=== PATIENT | male | born 1975 | race African-American/Black ===

== ENCOUNTER 2021-05-21 23:26 | Emergency (ER) | payer MEDICARE, SELFPAY ==
[2021-05-21 23:36] VITALS: BP 141/91; PULSE 90; RESP 15; TEMP 36.9; O2SAT 97; BMI 27.5
[2021-05-21 23:57] LABS: UR Morphine/Opiate cutoff 300 Negative (Negative); Ur Creatinine Normal (Normal); Ur Specific Gravity Normal (Normal); Urine Amphetamines Negative (Negative); Urine Barbiturates Negative (Negative); Urine Benzodiazepines Positive (Negative); Urine Cocaine Negative (Negative); Urine MDMA Negative (Negative); Urine Methadone Negative (Negative); Urine Methamphetamines Negative (Negative); Urine Oxycodone Negative (Negative); Urine Phencyclidine Negative (Negative); Urine Tetrahydrocannabinol Negative (Negative); Urine Tricyclic Antidepressant Negative (Negative); Urine pH Normal (Normal)
[2021-05-22 00:11] LABS: COVID19 -Nasal RAPID Negative (Negative)
[2021-05-22 00:19] LABS: Add Manual Diff / Slide Review NO; Basophils Absolute Auto 0 /uL (0-100); Basophils Percent Auto 0.5 % (0-2); Eosinophils Absolute Auto 100 /uL (0-450); Eosinophils Percent Auto 1.1 % (2-4); Hematocrit 36.4 % (41-53); Hemoglobin 11.9 g/dL (13.5-17.5); Lymphocytes Absolute Auto 1500 /uL (1100-4500); Lymphocytes Percent Auto 27.7 % (25-40); Mean Corpuscular HGB Conc 32.7 % (30-36); Mean Corpuscular Volume 73.4 fL (80-100); Monocytes Absolute Auto 500 /uL (0-900); Monocytes Percent Auto 9.8 % (3-14); Neutrophils Absolute Auto 3200 /uL (1500-7000); Neutrophils Percent Auto 60.9 % (50-75); Platelet Count 308 X10^3/uL (150-400); Red Blood Cell Count 4.96 X10^6/uL (4.5-5.9); Red Cell Distribution Width 15.5 % (11.6-14.8); White Blood Cell Count 5.2 X10^3/uL (4.5-11.0)
[2021-05-22 00:20] LABS: Acetaminophen < 10 ug/mL (10-30); Alanine Aminotransferase 46 IU/L (<50); Albumin 4.5 g/dL (3.5-5.0); Albumin Globulin Ratio 1.3 (1.0-2.8); Alkaline Phosphatase 53 U/L (38-126); Aspartate Aminotransferase 53 IU/L (17-59); BUN Creatinine Ratio 18.5 (6-22); Bilirubin Total 1.3 mg/dL (0.2-1.3); Blood Urea Nitrogen 17 mg/dL (9-20); Calcium 8.7 mg/dL (8.4-10.2); Carbon Dioxide 24 mmol/L (22-32); Chloride 104 mmol/L (98-107); Estimated Glomerular Filt Rate > 60.0 mL/min (>60); Ethanol (ETOH) < 10 mg/dL; Globulin 3.5 g/dL (1.7-4.1); Glucose 145 mg/dL (70-100); HEMOLYSIS < 15 (0-50); Potassium 3.6 mmol/L (3.4-5.1); Salicylate < 1.0 mg/dL (<20); Sodium 137 mmol/L (137-145)
--- NOTE | 2021-05-22 00:32 | PC.NURSE ---
Pt bike and trailer locked up in bushes in ambulance bay. Personal Machete in pt belongings cabinet
--- NOTE | 2021-05-22 00:39 | PC.NURSE ---
Pt brought his bike and burley to the [facility]. Had a conversation with security and the [facility] Zain and the pt would like to keep the bike and anna outside of the EMS bay and requested to have his name labeled on it.
--- NOTE | 2021-05-22 01:06 | ED.ALCOHOL ---
HPI - Alcohol <Yuri Hankins MD - Last Filed: 06/04/21 07:07> General Chief Complaint: Toxicology Problem Stated Complaint: Detox help needed Time Seen by Provider: 05/22/21 00:16 Source: patient Mode of arrival: Ambulatory History of Present Illness HPI narrative: The patient is homeless, he says he is an alcoholic. His last drink was allow 11:00 p.m.. He normally consumes 6-12 beers daily. He arrives on bicycle. He requests detox. He is alert,calm,and cooperative. He has no headache, visual changes, chest pain or dyspnea. He denies nausea vomiting. He has no significant tremor. He has no history of seizures. He has a relationship with [facility] [email or web address] He indicates he is supposed to be on psychiatric medications. He describes a history of schizophrenia and bipolar disorder. Medical records obtained here indicate his schizoaffective disorder, bipolar type. No current loosen a shins or delusions. He has no intent of self-harm. Despite his contention of his last alcohol drink recently,prior to arrival, his alcohol level 0. Records were obtained from [facility]. ER records from last year indicate a history of PTSD, bipolar 1 disorder, depression, alcohol abuse, and schizoaffective disorder, bipolar type. He had suicidal ideation at that time. Related Data Home Medications Medication Instructions Recorded Confirmed hydroxyzine HCl 50 mg tablet 50 mg PO Q8HP PRN #0 02/28/16 lisinopril 20 mg tablet 20 mg PO QDAY #0 02/28/16 perphenazine 8 mg tablet 8 mg PO #0 02/28/16 trazodone 150 mg tablet 150 mg PO QDAY #0 02/28/16 Previous Rx's Medication Instructions Recorded olanzapine 10 mg tablet (Zyprexa) 10 mg PO DAILY #30 tab 05/27/21 Allergies Allergy/AdvReac Type Severity Reaction Status Date / Time No Known Drug Allergies Allergy Verified 05/24/21 17:55 Review of Systems <Yuri Hankins MD - Last Filed: 06/04/21 07:07> Constitutional Constitutional: Reports as per HPI, Denies body ache(s), Denies chills, Denies fever(s) and Denies headache(s) Eyes Eyes: Denies change in vision ENT Ears, Nose, Mouth, and Throat: Denies dizziness, Denies headache(s), Denies sinus pain and Denies sore throat Cardiovascular Cardiovascular: Denies chest pain, Denies syncope and Denies dyspnea Respiratory Respiratory: Denies cough and Denies dyspnea Gastrointestinal Gastrointestinal: Denies abdominal pain and Denies nausea Musculoskeletal Musculoskeletal: Denies arthralgias, Denies muscle weakness and Denies numbness Integumentary/Breasts Skin/Breast: Denies rash Neurologic Neurologic: Denies confusion, Denies dizziness, Denies syncope, Denies headache(s) and Denies numbness Psychiatric Psychiatric: Denies confusion, Denies depression, Denies homicidal ideation and Denies suicidal ideation Patient History <Yuri Hankins MD - Last Filed: 06/04/21 07:07> Medical History Alcohol abuse PTSD (post-traumatic stress disorder) Schizoaffective disorder, bipolar type Social History Smoking Status: Current every day smoker Smoking Status: Current every day smoker alcohol intake frequency: 3 or more drinks per day Alcohol type: beer and hard liquor Substance Use Type: marijuana Exam <Yuri Hankins MD - Last Filed: 06/04/21 07:07> Initial Vital Signs Initial Vital Signs: Vital Signs Temperature 98.5 F 05/21/21 23:36 Pulse Rate 90 05/21/21 23:36 Respiratory Rate 15 05/21/21 23:36 Blood Pressure 141/91 H 05/21/21 23:36 Pulse Oximetry 97 05/21/21 23:36 Const General: cooperative, healthy appearing and comfortable Other: Poor historian. [facility] Head: normocephalic and atraumatic Mouth: oral mucosae normal Throat: posterior oropharynx normal Eyes Conjunctivae: conjunctivae normal Sclera: sclerae normal Pupils: PERRL EOM: EOM intact bilaterally Neck Neck: normal visual inspection and full ROM Resp Auscultation: clear to auscultation bilaterally Cardio Rate: regular rate Rhythm: regular rhythm Heart Sounds: S1 normal, S2 normal, no click and no murmurs GI Palpation: soft and No tender Back/Spine/Pelvis Back: No back tenderness Skin General: no rashes or lesions noted Neuro General: patient alert, patient awake, oriented (Person and place) and no focal motor deficits Cranial Nerves: CN's II-XI intact bilaterally Extrem General: normal to inspection, full ROM and no calf tenderness Psych Speech and Movement: delayed speech and restless Mood: dysthymic mood Affect: animated Attitude: cooperative, not belligerent and not guarded Thought Process: confabulating Thought Content: no delusions and no homicidality <Opal Desai DO - Last Filed: 05/22/21 16:31> Initial Vital Signs Initial Vital Signs: Vital Signs Temperature 98.5 F 05/21/21 23:36 Pulse Rate 90 05/21/21 23:36 Respiratory Rate 15 05/21/21 23:36 Blood Pressure 141/91 H 05/21/21 23:36 Pulse Oximetry 97 05/21/21 23:36 Course <Yuri Hankins MD - Last Filed: 06/04/21 07:07> Course Course Narrative: The patient is not intoxicated despite him reporting he was drinking just prior to arrival here. He has schizoaffective disorder, currently off medications. He is boarded in the ER, awaiting RIVET PASSER arrival for mental health assessment later today. Care will be transitioned to Dr. Desai at change of shift, awaiting mental health evaluation. The patient indicates he is desirable of reestablishing mental health care. He presented asking for alcohol detox, I believe a more comprehensive approach at mental health care is the more appropriate goal. He has been off medications for months. He is medically cleared for RIVET PASSER evaluation/disposition. Orders Ordered: ED Orders 05/21/21 23:50 COVID19 -Nasal swab/Pre-Proc Stat Urine Drug Screen, Rapid Stat 05/21/21 23:59 Acetaminophen Stat Complete Blood Count AUTO DIFF Stat Comprehensive Metabolic Panel Stat Ethanol (ETOH) Stat Free T4, Direct Thyroxine Stat Salicylate Stat Thyroid Stimulating Hormone Stat Vital Signs Vital signs: Vital Signs - 8 hr 05/22/21 06:46 05/22/21 06:47 05/22/21 08:10 Temperature 98 F Pulse Rate 68 64 74 Respiratory Rate 18 Blood Pressure 142/87 H 152/93 H Pulse Oximetry 100 98 99 <Opal Desai DO - Last Filed: 05/22/21 16:31> Orders Ordered: ED Orders 05/21/21 23:50 COVID19 -Nasal swab/Pre-Proc Stat Urine Drug Screen, Rapid Stat 05/21/21 23:59 Acetaminophen Stat Complete Blood Count AUTO DIFF Stat Comprehensive Metabolic Panel Stat Ethanol (ETOH) Stat Free T4, Direct Thyroxine Stat Salicylate Stat Thyroid Stimulating Hormone Stat Vital Signs Vital signs: Vital Signs - 8 hr 05/22/21 06:46 05/22/21 06:47 05/22/21 08:10 Temperature 98 F Pulse Rate 68 64 74 Respiratory Rate 18 Blood Pressure 142/87 H 152/93 H Pulse Oximetry 100 98 99 MDM - Alcohol <Yuri Hankins MD - Last Filed: 06/04/21 07:07> Lab Data Result diagrams: 05/21/21 23:59 05/21/21 23:59 Labs: Lab Results 05/21/21 05/21/21 05/21/21 Range/Units 23:50 23:50 23:59 WBC 5.2 (4.5-11.0) X10^3/uL RBC 4.96 (4.5-5.9) X10^6/uL Hgb 11.9 L (13.5-17.5) g/dL Hct 36.4 L (41-53) % MCV 73.4 L (80-100) fL MCH 24.0 L (26-34) PG MCHC 32.7 (30-36) % RDW 15.5 H (11.6-14.8) % Plt Count 308 (150-400) X10^3/uL Neut % (Auto) 60.9 (50-75) % Lymph % (Auto) 27.7 (25-40) % Mcclain % (Auto) 9.8 (3-14) % Eos % (Auto) 1.1 L (2-4) % Baso % (Auto) 0.5 (0-2) % Neut # (Auto) 3200 (6852-3405) /uL Lymph # (Auto) 1500 (7717-3726) /uL Mcclain # (Auto) 500 (0-900) /uL Eos # (Auto) 100 (0-450) /uL Baso # (Auto) 0 (0-100) /uL Sodium (137-145) mmol/L Potassium (3.4-5.1) mmol/L Chloride (98-107) mmol/L Carbon Dioxide (22-32) mmol/L BUN (9-20) mg/dL Creatinine (0.66-1.25) mg/dL Estimated GFR (>60) mL/min BUN/Creatinine Ratio (6-22) Glucose (70-100) mg/dL Calcium (8.4-10.2) mg/dL Total Bilirubin (0.2-1.3) mg/dL AST (17-59) IU/L ALT (<50) IU/L Alkaline Phosphatase (38-126) U/L Total Protein (6.3-8.2) g/dL Albumin (3.5-5.0) g/dL Globulin (1.7-4.1) g/dL Albumin/Globulin Ratio (1.0-2.8) TSH (0.47-4.68) uIU/mL Free T4 (0.78-2.19) ng/dL Salicylates (<20) mg/dL U Opiates 300ng/mL cut Negative (Negative) Ur Oxycodone Screen Negative (Negative) Urine Methadone Screen Negative (Negative) Acetaminophen (10-30) ug/mL Ur Barbiturates Screen Negative (Negative) U Tricyclic Antidepress Negative (Negative) Ur Phencyclidine Scrn Negative (Negative) Ur Amphetamines Screen Negative (Negative) U Methamphetamines Scrn Negative (Negative) Ur MDMA Scrn (Ecstasy) Negative (Negative) U Benzodiazepines Scrn Positive H (Negative) Urine Cocaine Screen Negative (Negative) U Marijuana (THC) Screen Negative (Negative) Ethyl Alcohol ( - 10) mg/dL SARS-CoV-2 (PCR) Negative (Negative) 05/21/21 05/21/21 Range/Units 23:59 23:59 WBC (4.5-11.0) X10^3/uL RBC (4.5-5.9) X10^6/uL Hgb (13.5-17.5) g/dL Hct (41-53) % MCV (80-100) fL MCH (26-34) PG MCHC (30-36) % RDW (11.6-14.8) % Plt Count (150-400) X10^3/uL Neut % (Auto) (50-75) % Lymph % (Auto) (25-40) % Mcclain % (Auto) (3-14) % Eos % (Auto) (2-4) % Baso % (Auto) (0-2) % Neut # (Auto) (5538-8483) /uL Lymph # (Auto) (9472-3373) /uL Mcclain # (Auto) (0-900) /uL Eos # (Auto) (0-450) /uL Baso # (Auto) (0-100) /uL Sodium 137 (137-145) mmol/L Potassium 3.6 (3.4-5.1) mmol/L Chloride 104 (98-107) mmol/L Carbon Dioxide 24 (22-32) mmol/L BUN 17 (9-20) mg/dL Creatinine 0.92 (0.66-1.25) mg/dL Estimated GFR > 60.0 (>60) mL/min BUN/Creatinine Ratio 18.5 (6-22) Glucose 145 H (70-100) mg/dL Calcium 8.7 (8.4-10.2) mg/dL Total Bilirubin 1.3 (0.2-1.3) mg/dL AST 53 (17-59) IU/L ALT 46 (<50) IU/L Alkaline Phosphatase 53 (38-126) U/L Total Protein 8.0 (6.3-8.2) g/dL Albumin 4.5 (3.5-5.0) g/dL Globulin 3.5 (1.7-4.1) g/dL Albumin/Globulin Ratio 1.3 (1.0-2.8) TSH 1.66 (0.47-4.68) uIU/mL Free T4 0.79 (0.78-2.19) ng/dL Salicylates < 1.0 (<20) mg/dL U Opiates 300ng/mL cut (Negative) Ur Oxycodone Screen (Negative) Urine Methadone Screen (Negative) Acetaminophen < 10 (10-30) ug/mL Ur Barbiturates Screen (Negative) U Tricyclic Antidepress (Negative) Ur Phencyclidine Scrn (Negative) Ur Amphetamines Screen (Negative) U Methamphetamines Scrn (Negative) Ur MDMA Scrn (Ecstasy) (Negative) U Benzodiazepines Scrn (Negative) Urine Cocaine Screen (Negative) U Marijuana (THC) Screen (Negative) Ethyl Alcohol < 10 ( - 10) mg/dL SARS-CoV-2 (PCR) (Negative) Urine Dip Bedside Urine Glucose Negative Bedside Urine Bilirubin - Negative Bedside Urine Ketone - Negative Urine Specific Bushnell 1.020 Bedside Urine Occult Blood - Negative Bedside Urine pH 6 Bedside Urine Protein - Negative Bedside Urine Urobilinogen - Negative Bedside Urine Nitrite - Negative Bedside Urine Leukocytes - Negative Esterase <Opal Giselle, DO - Last Filed: 05/22/21 16:31> Lab Data Labs: Lab Results 05/21/21 05/21/21 05/21/21 Range/Units 23:50 23:50 23:59 WBC 5.2 (4.5-11.0) X10^3/uL RBC 4.96 (4.5-5.9) X10^6/uL Hgb 11.9 L (13.5-17.5) g/dL Hct 36.4 L (41-53) % MCV 73.4 L (80-100) fL MCH 24.0 L (26-34) PG MCHC 32.7 (30-36) % RDW 15.5 H (11.6-14.8) % Plt Count 308 (150-400) X10^3/uL Neut % (Auto) 60.9 (50-75) % Lymph % (Auto) 27.7 (25-40) % Mcclain % (Auto) 9.8 (3-14) % Eos % (Auto) 1.1 L (2-4) % Baso % (Auto) 0.5 (0-2) % Neut # (Auto) 3200 (4624-1579) /uL Lymph # (Auto) 1500 (9118-1463) /uL Mcclain # (Auto) 500 (0-900) /uL Eos # (Auto) 100 (0-450) /uL Baso # (Auto) 0 (0-100) /uL Sodium (137-145) mmol/L Potassium (3.4-5.1) mmol/L Chloride (98-107) mmol/L Carbon Dioxide (22-32) mmol/L BUN (9-20) mg/dL Creatinine (0.66-1.25) mg/dL Estimated GFR (>60) mL/min BUN/Creatinine Ratio (6-22) Glucose (70-100) mg/dL Calcium (8.4-10.2) mg/dL Total Bilirubin (0.2-1.3) mg/dL AST (17-59) IU/L ALT (<50) IU/L Alkaline Phosphatase (38-126) U/L Total Protein (6.3-8.2) g/dL Albumin (3.5-5.0) g/dL Globulin (1.7-4.1) g/dL Albumin/Globulin Ratio (1.0-2.8) TSH (0.47-4.68) uIU/mL Free T4 (0.78-2.19) ng/dL Salicylates (<20) mg/dL U Opiates 300ng/mL cut Negative (Negative) Ur Oxycodone Screen Negative (Negative) Urine Methadone Screen Negative (Negative) Acetaminophen (10-30) ug/mL Ur Barbiturates Screen Negative (Negative) U Tricyclic Antidepress Negative (Negative) Ur Phencyclidine Scrn Negative (Negative) Ur Amphetamines Screen Negative (Negative) U Methamphetamines Scrn Negative (Negative) Ur MDMA Scrn (Ecstasy) Negative (Negative) U Benzodiazepines Scrn Positive H (Negative) Urine Cocaine Screen Negative (Negative) U Marijuana (THC) Screen Negative (Negative) Ethyl Alcohol ( - 10) mg/dL SARS-CoV-2 (PCR) Negative (Negative) 05/21/21 05/21/21 Range/Units 23:59 23:59 WBC (4.5-11.0) X10^3/uL RBC (4.5-5.9) X10^6/uL Hgb (13.5-17.5) g/dL Hct (41-53) % MCV (80-100) fL MCH (26-34) PG MCHC (30-36) % RDW (11.6-14.8) % Plt Count (150-400) X10^3/uL Neut % (Auto) (50-75) % Lymph % (Auto) (25-40) % Mcclain % (Auto) (3-14) % Eos % (Auto) (2-4) % Baso % (Auto) (0-2) % Neut # (Auto) (8778-8252) /uL Lymph # (Auto) (2157-5805) /uL Mcclain # (Auto) (0-900) /uL Eos # (Auto) (0-450) /uL Baso # (Auto) (0-100) /uL Sodium 137 (137-145) mmol/L Potassium 3.6 (3.4-5.1) mmol/L Chloride 104 (98-107) mmol/L Carbon Dioxide 24 (22-32) mmol/L BUN 17 (9-20) mg/dL Creatinine 0.92 (0.66-1.25) mg/dL Estimated GFR > 60.0 (>60) mL/min BUN/Creatinine Ratio 18.5 (6-22) Glucose 145 H (70-100) mg/dL Calcium 8.7 (8.4-10.2) mg/dL Total Bilirubin 1.3 (0.2-1.3) mg/dL AST 53 (17-59) IU/L ALT 46 (<50) IU/L Alkaline Phosphatase 53 (38-126) U/L Total Protein 8.0 (6.3-8.2) g/dL Albumin 4.5 (3.5-5.0) g/dL Globulin 3.5 (1.7-4.1) g/dL Albumin/Globulin Ratio 1.3 (1.0-2.8) TSH 1.66 (0.47-4.68) uIU/mL Free T4 0.79 (0.78-2.19) ng/dL Salicylates < 1.0 (<20) mg/dL U Opiates 300ng/mL cut (Negative) Ur Oxycodone Screen (Negative) Urine Methadone Screen (Negative) Acetaminophen < 10 (10-30) ug/mL Ur Barbiturates Screen (Negative) U Tricyclic Antidepress (Negative) Ur Phencyclidine Scrn (Negative) Ur Amphetamines Screen (Negative) U Methamphetamines Scrn (Negative) Ur MDMA Scrn (Ecstasy) (Negative) U Benzodiazepines Scrn (Negative) Urine Cocaine Screen (Negative) U Marijuana (THC) Screen (Negative) Ethyl Alcohol < 10 ( - 10) mg/dL SARS-CoV-2 (PCR) (Negative) Urine Dip Bedside Urine Glucose Negative Bedside Urine Bilirubin - Negative Bedside Urine Ketone - Negative Urine Specific Bushnell 1.020 Bedside Urine Occult Blood - Negative Bedside Urine pH 6 Bedside Urine Protein - Negative Bedside Urine Urobilinogen - Negative Bedside Urine Nitrite - Negative Bedside Urine Leukocytes - Negative Esterase MDM Narrative Medical decision making narrative: Patient signed out to me by Dr. Hankins. I had seen evaluated patient myself. Awake alert oriented. States he does have a history of schizoaffective disorder bipolar, PTSD and alcoholism. He says his legal trouble seem to be behind him he now needs to work on his alcohol use and wants detox and treatment. He has been off and on the streets for most of his life. He has had thoughts of suicide in the past. He does not have any now he is not sure if he is going to have any later today. He contracts for safety. He does talk quite a bit about meth addicts on the streets after him. He says they been at present for number of years. Discharge Plan Departure Patient Disposition: Home Clinical Impression: Schizoaffective disorder, bipolar type, Alcohol abuse Instructions: DI for Alcohol Use Disorder Activity Restrictions/Additional Instructions: *You have been diagnosed with alcohol abuse *What to do: We tried to find detox for you however there fortunately all full. Please use the piece of paper and call them daily to see when a bed is available. Do not stop drinking alcohol in till you arrive in detox. Alcohol withdraw can be very dangerous while unmonitored. Please see list for places of detox You are welcome to return to anytime to the emergency department If you are feeling suicidal or having suicidal thoughts: Call: Suicide Hotline: Visit: www.[employer].org Text: 649403 *Continue to take medications as directed *Follow up with your primary care provider in 2-3 days or call [phone] *Return to ER if you should have withdraw, thoughts of harming self, or any new, worsening or concerning symptoms Prescriptions: No Action lisinopril 20 MG tablet 20 mg PO QDAY Qty: 0 0RF trazodone 150 MG tablet 150 mg PO QDAY Qty: 0 0RF perphenazine 8 MG tablet 8 mg PO Qty: 0 0RF hydroxyzine HCl 50 MG tablet 50 mg PO Q8HP PRNQty: 0 0RF olanzapine [Zyprexa] 10 mg tablet 10 mg PO DAILY Qty: 30 0RF
[2021-05-22 01:15] LABS: Free T4, Direct Thyroxine 0.79 ng/dL (0.78-2.19)
[2021-05-22 01:29] LABS: Thyroid Stimulating Hormone 1.66 uIU/mL (0.47-4.68)
[2021-05-22 06:46] VITALS: PULSE 68; O2SAT 100
[2021-05-22 06:47] VITALS: BP 142/87; PULSE 64; O2SAT 98
[2021-05-22 08:10] VITALS: BP 152/93; PULSE 74; RESP 18; TEMP 36.6; O2SAT 99
== END 2021-05-22 10:24 | disposition home or self-care (01) ==
PROVIDERS: Emergency Medicine; Emergency Provider Emergency Medicine
DX: F25.0 Schizoaffective disorder, bipolar type (principal); F10.20 Alcohol dependence, uncomplicated; Z59.00 Homelessness unspecified; F17.200 Nicotine dependence, unspecified, uncomplicated; Z20.822 Contact with and (suspected) exposure to COVID-19; Y90.0 Blood alcohol level of less than 20 mg/100 ml
CPT/HCPCS: 80053; 80305; 80320; 80329; 81003; 84439; 84443; 85025; 87635; 99282; 99283; C9803; G0480

== ENCOUNTER 2021-05-22 21:45 | Emergency (ER) | payer SELFPAY ==
[2021-05-22 21:55] VITALS: BP 123/82; PULSE 75; RESP 16; TEMP 36.9; O2SAT 100; BMI 24.4
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
--- NOTE | 2021-05-22 22:46 | PC.NURSE ---
Patient no longer in lobby. Seen exiting per admitting staff.
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
== END 2021-05-22 23:27 | disposition left against medical advice (07) ==
PROVIDERS: Emergency Provider Emergency Medicine
DX: F10.129 Alcohol abuse with intoxication, unspecified (principal)
CPT/HCPCS: 99281

== ENCOUNTER 2021-05-23 00:41 | Emergency (ER) | payer SELFPAY ==
[2021-05-23 01:10] VITALS: BP 119/81; PULSE 81; RESP 16; TEMP 36.9; O2SAT 98; BMI 24.4
--- NOTE | 2021-05-23 06:12 | PC.NURSE ---
Pt continues to walk away from the hospital and occasionally comes back. In in hospital WR at this time
--- NOTE | 2021-05-23 08:44 | CM.SWNOTE ---
RECEIVING DISTRIBUTION STATION OPERATOR Note Late Entry This RECEIVING DISTRIBUTION STATION OPERATOR requested to assist coordinate dispo for this 46 yo male, currently homeless, presents to the ED requesting detox from [facility] Placed call to the following detox facilities: Detox 4.7.22 0830 Stefan Thurman 1975 [facility], tried multiple times this morning [facility] -No beds today [place] [facility] (Detox) -No beds through the weekend, call Wednesday [facility] [place] [facility] -Had to leave message on patient?s behalf Jonle Provided patient a copy of above efforts, in addition provided resource list of Outpatient substance use treatment. Patient should be encouraged to continue to make calls independently if access to a phone Updated Dr Desai, ER provider KE Banks
== END 2021-05-23 06:59 | disposition left against medical advice (07) ==
PROVIDERS: Emergency Provider Emergency Medicine
DX: Z53.21 Procedure and treatment not carried out due to patient leaving prior to being seen by health care provider (principal)
CPT/HCPCS: 99281

== ENCOUNTER 2021-05-24 17:53 | Emergency (ER) | payer MEDICAID, SELFPAY ==
[2021-05-24 17:55] VITALS: BP 146/97; PULSE 81; RESP 18; TEMP 36.9; O2SAT 100; BMI 27.9
--- NOTE | 2021-05-24 18:13 | ED.PSYCH ---
HPI - Psych <Brea Dominique DO - Last Filed: 05/28/21 10:09> General Chief Complaint: Psychiatric Symptoms Stated Complaint: wants mental health help Time Seen by Provider: 05/24/21 18:13 Source: patient and police Mode of arrival: Ambulatory Limitations: no limitations History of Present Illness HPI Narrative: ER records from prior visit indicate PTSD, bipolar 1 disorder, depression, alcohol abuse and schizoaffective disorder. This is a 46-year-old male who presents requesting mental health help. Patient states he has a history of alcohol abuse and withdrawals typically he gets sweats, occasionally that hallucinations but no seizures. He states he uses marijuana he denies other illicit. He states he has multiple medical problems. His main concern is he does not feel safe he feels other are trying to harm him or kill him. Patient does admit to any suicidal ideation he states that he does not have any thoughts of harming others. Patient does note that he has tried to kill himself in the past. He states he has been on medications for mental health he states he does not usually tolerate them well secondary to side effects including lithium that they were just too strong. Patient does continue to smoke. He states his last drink was about 20 minutes prior to arrival. He was at the library earlier today and fell unsafe and came here. His goal which to be to go to [facility] but he is agreeable to go to other facilities. He has been in direct contact with the police as he has a court date on May 27 and to make sure that they are aware of where he is on sounds like he has been in touch with them on Wednesday and they are helping him navigate that process. Related Data Home Medications Medication Instructions Recorded Confirmed hydroxyzine HCl 50 mg tablet 50 mg PO Q8HP PRN #0 02/28/16 lisinopril 20 mg tablet 20 mg PO QDAY #0 02/28/16 perphenazine 8 mg tablet 8 mg PO #0 02/28/16 trazodone 150 mg tablet 150 mg PO QDAY #0 02/28/16 Previous Rx's Medication Instructions Recorded olanzapine 10 mg tablet (Zyprexa) 10 mg PO DAILY #30 tab 05/27/21 Allergies Allergy/AdvReac Type Severity Reaction Status Date / Time No Known Drug Allergies Allergy Verified 05/24/21 17:55 Review of Systems <Brea Dominique DO - Last Filed: 05/28/21 10:09> Review of Systems ROS Unobtainable: All systems reviewed & are unremarkable except as noted in HPI and below Patient History <Brea Dominique DO - Last Filed: 05/28/21 10:09> Medical History Alcohol abuse PTSD (post-traumatic stress disorder) Schizoaffective disorder, bipolar type Social History Smoking Status: Current every day smoker Smoking Status: Current every day smoker alcohol intake frequency: 3 or more drinks per day Alcohol type: beer and hard liquor Substance Use Type: marijuana Exam <Brea Dominique DO - Last Filed: 05/28/21 10:09> Narrative Exam Narrative: GENERAL: Alert and oriented x three, male in mild distress. HEENT: Head normocephalic, atraumatic, EOMI, pupils reactive, face symmetric, moist mucous membranes NECK: Supple, full range of motion CARDIOVASCULAR: Regular rate and rhythm without murmurs, rubs or gallops. RESPIRATORY: Breath sounds equal bilaterally, no wheezes rales or rhonchi. ABDOMEN: Soft, nontender. Normoactive bowel sounds all 4 quadrants. No guarding or rebound, rigidity, no mass : No CVA tenderness EXTREMITIES: Normal range of motion, no clubbing or edema. Neurovascularly intact NEUROLOGICAL: Cranial nerves II through XII grossly intact. Moving all extremities SKIN: Warm, dry, no petechiae, no rashes or lesions. PSYCH: No suicidal ideation, no homicidal, paranoid thoughts of being harmed by others. Patient has clear speech, cooperative. Patient does request to be locked into the psychiatric room for his own privacy and safety. Initial Vital Signs Initial Vital Signs: Vital Signs Temperature 98.5 F 05/24/21 17:55 Pulse Rate 81 05/24/21 17:55 Respiratory Rate 18 05/24/21 17:55 Blood Pressure 146/97 H 05/24/21 17:55 Pulse Oximetry 100 05/24/21 17:55 <Mina Fletcher DO - Last Filed: 05/25/21 15:02> Initial Vital Signs Initial Vital Signs: Vital Signs Temperature 98.5 F 05/24/21 17:55 Pulse Rate 81 05/24/21 17:55 Respiratory Rate 18 05/24/21 17:55 Blood Pressure 146/97 H 05/24/21 17:55 Pulse Oximetry 100 05/24/21 17:55 Course <Brea Dominique, DO - Last Filed: 05/28/21 10:09> Orders Ordered: Discontinued Medications Lorazepam (Lorazepam 0.5 Mg Tablet) 2 mg PO NOW ONE Stop: 05/24/21 19:11 Last Admin: 05/24/21 19:17 Dose: 1 mg Documented by: MIRELLA Olanzapine (Olanzapine Odt 10 Mg Tab) 10 mg PO NOW ONE Stop: 05/24/21 22:19 Last Admin: 05/25/21 06:08 Dose: Not Given Documented by: JEAN-PAUL Reevaluation(s) Reevaluation #1: Patient offered medication. He is quite paranoid and concerned about safety and someone trying to harm him. He requests the door to our psychiatric room be closed and locked. Patient has been redirectable. Offered ativan po and patient took 1mg. Later offered zyprexa with history of schizoaffective and paranoia but patient has politely refused and been redirectable. Reevaluation #2: Patient did call 911 and told distillation operator helper our security team lead is trying to kill him. Has repeatedly asked myself as willing nursing to swear that we are not trying to harm or kill him. Patient has stated that there are people with fire arms that can shoot through concrete and a metal door send that are room is not safe. We pointed out that are other rooms have clear glass doors and would be less safe options. Vital Signs Vital signs: Vital Signs - 8 hr 05/24/21 17:55 Temperature 98.5 F Pulse Rate 81 Respiratory Rate 18 Blood Pressure 146/97 H Pulse Oximetry 100 <Mina Fletcher, DO - Last Filed: 05/25/21 15:02> Orders Ordered: Discontinued Medications Lorazepam (Lorazepam 0.5 Mg Tablet) 2 mg PO NOW ONE Stop: 05/24/21 19:11 Last Admin: 05/24/21 19:17 Dose: 1 mg Documented by: MIRELLA Olanzapine (Olanzapine Odt 10 Mg Tab) 10 mg PO NOW ONE Stop: 05/24/21 22:19 Last Admin: 05/25/21 06:08 Dose: Not Given Documented by: JEAN-PAUL Vital Signs Vital signs: Vital Signs - 8 hr 05/24/21 17:55 Temperature 98.5 F Pulse Rate 81 Respiratory Rate 18 Blood Pressure 146/97 H Pulse Oximetry 100 MDM - Psych <Brea Dominique DO - Last Filed: 05/28/21 10:09> Lab Data Result diagrams: 05/24/21 18:35 05/24/21 18:35 Labs: Lab Results 05/24/21 05/24/21 05/24/21 Range/Units 18:13 18:13 18:34 WBC (4.5-11.0) X10^3/uL RBC (4.5-5.9) X10^6/uL Hgb (13.5-17.5) g/dL Hct (41-53) % MCV (80-100) fL MCH (26-34) PG MCHC (30-36) % RDW (11.6-14.8) % Plt Count (150-400) X10^3/uL Neut % (Auto) (50-75) % Lymph % (Auto) (25-40) % Creek % (Auto) (3-14) % Eos % (Auto) (2-4) % Baso % (Auto) (0-2) % Neut # (Auto) (0835-2142) /uL Lymph # (Auto) (5301-4704) /uL Creek # (Auto) (0-900) /uL Eos # (Auto) (0-450) /uL Baso # (Auto) (0-100) /uL PT (10.1-12.7) SECONDS INR (0.9-1.3) APTT (26.4-36.2) SECONDS Sodium (137-145) mmol/L Potassium (3.4-5.1) mmol/L Chloride (98-107) mmol/L Carbon Dioxide (22-32) mmol/L BUN (9-20) mg/dL Creatinine (0.66-1.25) mg/dL Estimated GFR (>60) mL/min BUN/Creatinine Ratio (6-22) Glucose (70-100) mg/dL Calcium (8.4-10.2) mg/dL Total Bilirubin (0.2-1.3) mg/dL AST (17-59) IU/L ALT (<50) IU/L Alkaline Phosphatase (38-126) U/L Total Protein (6.3-8.2) g/dL Albumin (3.5-5.0) g/dL Globulin (1.7-4.1) g/dL Albumin/Globulin Ratio (1.0-2.8) Urine Color Yellow Urine Appearance Clear Urine pH 5.0 (4.5-8.0) Ur Specific [place] 1.010 (1.000-1.035) Urine Protein Negative (Negative) Urine Glucose (UA) Negative (Negative) g/dL Urine Ketones Negative (NEGATIVE) Urine Occult Blood Negative (Negative) Urine Nitrate Negative (Negative) Urine Bilirubin Negative (NEGATIVE) Urine Urobilinogen 0.2 (0.2) E.U./dL Ur Leukocyte Esterase Negative (NEGATIVE) Urine RBC None seen (0-5/HPF) Urine WBC None seen (0-5/HPF) Urine Bacteria None seen (None) Ur Culture Indicated? Cult not indicated Micro UA Comment Microscopic normal U Opiates 300ng/mL cut Negative (Negative) Ur Oxycodone Screen Negative (Negative) Urine Methadone Screen Negative (Negative) Ur Barbiturates Screen Negative (Negative) U Tricyclic Antidepress Negative (Negative) Ur Phencyclidine Scrn Negative (Negative) Ur Amphetamines Screen Negative (Negative) U Methamphetamines Scrn Negative (Negative) Ur MDMA Scrn (Ecstasy) Negative (Negative) U Benzodiazepines Scrn Positive H (Negative) Urine Cocaine Screen Negative (Negative) U Marijuana (THC) Screen Negative (Negative) Ethyl Alcohol ( - 10) mg/dL SARS-CoV-2 (PCR) Negative (Negative) 05/24/21 05/24/21 05/24/21 Range/Units 18:35 18:35 18:35 WBC 3.9 L (4.5-11.0) X10^3/uL RBC 4.80 (4.5-5.9) X10^6/uL Hgb 11.6 L (13.5-17.5) g/dL Hct 35.9 L (41-53) % MCV 74.8 L (80-100) fL MCH 24.1 L (26-34) PG MCHC 32.3 (30-36) % RDW 15.5 H (11.6-14.8) % Plt Count 302 (150-400) X10^3/uL Neut % (Auto) 55.6 (50-75) % Lymph % (Auto) 29.3 (25-40) % Creek % (Auto) 10.9 (3-14) % Eos % (Auto) 2.8 (2-4) % Baso % (Auto) 1.4 (0-2) % Neut # (Auto) 2100 (2382-2107) /uL Lymph # (Auto) 1100 (7697-2246) /uL Creek # (Auto) 400 (0-900) /uL Eos # (Auto) 100 (0-450) /uL Baso # (Auto) 100 (0-100) /uL PT 10.5 (10.1-12.7) SECONDS INR 0.9 (0.9-1.3) APTT 32 (26.4-36.2) SECONDS Sodium 138 (137-145) mmol/L Potassium 4.5 (3.4-5.1) mmol/L Chloride 103 (98-107) mmol/L Carbon Dioxide 31 (22-32) mmol/L BUN 13 (9-20) mg/dL Creatinine 0.91 (0.66-1.25) mg/dL Estimated GFR > 60.0 (>60) mL/min BUN/Creatinine Ratio 14.3 (6-22) Glucose 164 H (70-100) mg/dL Calcium 9.1 (8.4-10.2) mg/dL Total Bilirubin 0.8 (0.2-1.3) mg/dL AST 55 (17-59) IU/L ALT 47 (<50) IU/L Alkaline Phosphatase 46 (38-126) U/L Total Protein 8.0 (6.3-8.2) g/dL Albumin 4.6 (3.5-5.0) g/dL Globulin 3.4 (1.7-4.1) g/dL Albumin/Globulin Ratio 1.4 (1.0-2.8) Urine Color Urine Appearance Urine pH (4.5-8.0) Ur Specific [place] (1.000-1.035) Urine Protein (Negative) Urine Glucose (UA) (Negative) g/dL Urine Ketones (NEGATIVE) Urine Occult Blood (Negative) Urine Nitrate (Negative) Urine Bilirubin (NEGATIVE) Urine Urobilinogen (0.2) E.U./dL Ur Leukocyte Esterase (NEGATIVE) Urine RBC (0-5/HPF) Urine WBC (0-5/HPF) Urine Bacteria (None) Ur Culture Indicated? Micro UA Comment U Opiates 300ng/mL cut (Negative) Ur Oxycodone Screen (Negative) Urine Methadone Screen (Negative) Ur Barbiturates Screen (Negative) U Tricyclic Antidepress (Negative) Ur Phencyclidine Scrn (Negative) Ur Amphetamines Screen (Negative) U Methamphetamines Scrn (Negative) Ur MDMA Scrn (Ecstasy) (Negative) U Benzodiazepines Scrn (Negative) Urine Cocaine Screen (Negative) U Marijuana (THC) Screen (Negative) Ethyl Alcohol 40 H ( - 10) mg/dL SARS-CoV-2 (PCR) (Negative) MDM Narrative Medical decision making narrative: This is a 46-year-old male with history of alcohol and recreational drug abuse, reported schizoaffective disorder seeking voluntary placement. Patient appears quite paranoid and feels very unsafe. He is requesting to be locked into our Psychiatric room. He has asked me to give my word that we will keep him safe. He has been cooperative throughout his evaluation. Patient appears to be quite paranoid. He has denies thoughts of harming himself or others but is quite convinced someone is out to kill or hurt him. He seems to be having some delusions or hallucinations. He has also called 911 this evening stating or security is trying to kill him. Security is not actually been in the department with the patient at any point up to this point. Patient has to be redirected and has required multiple verbal interactions to help him feel safe. He was offered Zyprexa but defers. He did states that he has been on antipsychotics and lithium before and did not like the way they make him feel. He did take 1 mg of Ativan earlier in the evening. Patient has been voluntary and is seeking placement. Patient signed out to Dr. Chacon while awaiting possible placement. Chart currently under review at [facility] with reported bed availability. <Mina Fletcher DO - Last Filed: 05/25/21 15:02> Lab Data Labs: Lab Results 05/24/21 05/24/21 05/24/21 Range/Units 18:13 18:13 18:34 WBC (4.5-11.0) X10^3/uL RBC (4.5-5.9) X10^6/uL Hgb (13.5-17.5) g/dL Hct (41-53) % MCV (80-100) fL MCH (26-34) PG MCHC (30-36) % RDW (11.6-14.8) % Plt Count (150-400) X10^3/uL Neut % (Auto) (50-75) % Lymph % (Auto) (25-40) % Creek % (Auto) (3-14) % Eos % (Auto) (2-4) % Baso % (Auto) (0-2) % Neut # (Auto) (8490-4496) /uL Lymph # (Auto) (0777-9440) /uL Creek # (Auto) (0-900) /uL Eos # (Auto) (0-450) /uL Baso # (Auto) (0-100) /uL PT (10.1-12.7) SECONDS INR (0.9-1.3) APTT (26.4-36.2) SECONDS Sodium (137-145) mmol/L Potassium (3.4-5.1) mmol/L Chloride (98-107) mmol/L Carbon Dioxide (22-32) mmol/L BUN (9-20) mg/dL Creatinine (0.66-1.25) mg/dL Estimated GFR (>60) mL/min BUN/Creatinine Ratio (6-22) Glucose (70-100) mg/dL Calcium (8.4-10.2) mg/dL Total Bilirubin (0.2-1.3) mg/dL AST (17-59) IU/L ALT (<50) IU/L Alkaline Phosphatase (38-126) U/L Total Protein (6.3-8.2) g/dL Albumin (3.5-5.0) g/dL Globulin (1.7-4.1) g/dL Albumin/Globulin Ratio (1.0-2.8) Urine Color Yellow Urine Appearance Clear Urine pH 5.0 (4.5-8.0) Ur Specific [place] 1.010 (1.000-1.035) Urine Protein Negative (Negative) Urine Glucose (UA) Negative (Negative) g/dL Urine Ketones Negative (NEGATIVE) Urine Occult Blood Negative (Negative) Urine Nitrate Negative (Negative) Urine Bilirubin Negative (NEGATIVE) Urine Urobilinogen 0.2 (0.2) E.U./dL Ur Leukocyte Esterase Negative (NEGATIVE) Urine RBC None seen (0-5/HPF) Urine WBC None seen (0-5/HPF) Urine Bacteria None seen (None) Ur Culture Indicated? Cult not indicated Micro UA Comment Microscopic normal U Opiates 300ng/mL cut Negative (Negative) Ur Oxycodone Screen Negative (Negative) Urine Methadone Screen Negative (Negative) Ur Barbiturates Screen Negative (Negative) U Tricyclic Antidepress Negative (Negative) Ur Phencyclidine Scrn Negative (Negative) Ur Amphetamines Screen Negative (Negative) U Methamphetamines Scrn Negative (Negative) Ur MDMA Scrn (Ecstasy) Negative (Negative) U Benzodiazepines Scrn Positive H (Negative) Urine Cocaine Screen Negative (Negative) U Marijuana (THC) Screen Negative (Negative) Ethyl Alcohol ( - 10) mg/dL SARS-CoV-2 (PCR) Negative (Negative) 05/24/21 05/24/21 05/24/21 Range/Units 18:35 18:35 18:35 WBC 3.9 L (4.5-11.0) X10^3/uL RBC 4.80 (4.5-5.9) X10^6/uL Hgb 11.6 L (13.5-17.5) g/dL Hct 35.9 L (41-53) % MCV 74.8 L (80-100) fL MCH 24.1 L (26-34) PG MCHC 32.3 (30-36) % RDW 15.5 H (11.6-14.8) % Plt Count 302 (150-400) X10^3/uL Neut % (Auto) 55.6 (50-75) % Lymph % (Auto) 29.3 (25-40) % Creek % (Auto) 10.9 (3-14) % Eos % (Auto) 2.8 (2-4) % Baso % (Auto) 1.4 (0-2) % Neut # (Auto) 2100 (8504-6423) /uL Lymph # (Auto) 1100 (8037-8508) /uL Creek # (Auto) 400 (0-900) /uL Eos # (Auto) 100 (0-450) /uL Baso # (Auto) 100 (0-100) /uL PT 10.5 (10.1-12.7) SECONDS INR 0.9 (0.9-1.3) APTT 32 (26.4-36.2) SECONDS Sodium 138 (137-145) mmol/L Potassium 4.5 (3.4-5.1) mmol/L Chloride 103 (98-107) mmol/L Carbon Dioxide 31 (22-32) mmol/L BUN 13 (9-20) mg/dL Creatinine 0.91 (0.66-1.25) mg/dL Estimated GFR > 60.0 (>60) mL/min BUN/Creatinine Ratio 14.3 (6-22) Glucose 164 H (70-100) mg/dL Calcium 9.1 (8.4-10.2) mg/dL Total Bilirubin 0.8 (0.2-1.3) mg/dL AST 55 (17-59) IU/L ALT 47 (<50) IU/L Alkaline Phosphatase 46 (38-126) U/L Total Protein 8.0 (6.3-8.2) g/dL Albumin 4.6 (3.5-5.0) g/dL Globulin 3.4 (1.7-4.1) g/dL Albumin/Globulin Ratio 1.4 (1.0-2.8) Urine Color Urine Appearance Urine pH (4.5-8.0) Ur Specific [place] (1.000-1.035) Urine Protein (Negative) Urine Glucose (UA) (Negative) g/dL Urine Ketones (NEGATIVE) Urine Occult Blood (Negative) Urine Nitrate (Negative) Urine Bilirubin (NEGATIVE) Urine Urobilinogen (0.2) E.U./dL Ur Leukocyte Esterase (NEGATIVE) Urine RBC (0-5/HPF) Urine WBC (0-5/HPF) Urine Bacteria (None) Ur Culture Indicated? Micro UA Comment U Opiates 300ng/mL cut (Negative) Ur Oxycodone Screen (Negative) Urine Methadone Screen (Negative) Ur Barbiturates Screen (Negative) U Tricyclic Antidepress (Negative) Ur Phencyclidine Scrn (Negative) Ur Amphetamines Screen (Negative) U Methamphetamines Scrn (Negative) Ur MDMA Scrn (Ecstasy) (Negative) U Benzodiazepines Scrn (Negative) Urine Cocaine Screen (Negative) U Marijuana (THC) Screen (Negative) Ethyl Alcohol 40 H ( - 10) mg/dL SARS-CoV-2 (PCR) (Negative) MDM Narrative Medical decision making narrative: This is a 46-year-old male with history of alcohol and recreational drug abuse, reported schizoaffective disorder seeking voluntary placement. Patient appears quite paranoid and feels very unsafe. He is requesting to be locked into our Psychiatric room. He has asked me to give my word that we will keep him safe. He has been cooperative throughout his evaluation. Patient appears to be quite paranoid. He has denies thoughts of harming himself or others but is quite convinced someone is out to kill or hurt him. He seems to be having some delusions or hallucinations. He has also called 911 this evening stating or security is trying to kill him. Security is not actually been in the department with the patient at any point up to this point. Patient has to be redirected and has required multiple verbal interactions to help him feel safe. He was offered Zyprexa but defers. He did states that he has been on antipsychotics and lithium before and did not like the way they make him feel. He did take 1 mg of Ativan earlier in the evening. Patient has been voluntary and is seeking placement. Patient signed out to Dr. Fletcher while awaiting possible placement. Chart currently under review at [facility] with reported bed availability. 0700 -patient received from Dr. Dominique in sign-out. He is easily directable, speaking clearly and walking straight line. He has no suicidal or homicidal ideations. PD has been to see him to discuss their previous plans and involvement. We are currently awaiting possible bed placement at [facility] 0815 - [place] [facility] has come to see patient to discuss their interactions with him. He is calm and respectful, easily directable. 0900 -patient becoming frustrated that his phone is dying and we do not have a conveyor belt operator. He is starting to leave unless we can help in charge his phone. I eventually did find a conveyor belt operator and he agrees to stay until noon but we do not have a plan by then he will leave. Social Work has been working diligently in the background and has found placement for him later this afternoon. Patient is alert and oriented, denies active suicidal or homicidal ideations. He is not gravely disabled and continues to be voluntary. 1400 - patient decides he no longer wants transfer to [facility]. He still demonstrates capacity and is not actively gravely disabled. He has had questions answered to his apparent satisfaction. He understands he may return immediately for any change of heart. 1430 - we have spoken with PD and he made his way over there to get his things that they had been storing. Again we asked (through their staff) if he would like to return. [place], he would still prefer to avoid hospitalization. Discharge Plan Departure Patient Disposition: Home Clinical Impression: Schizoaffective disorder, bipolar type, Paranoia Instructions: DI for Schizoaffective Disorder Activity Restrictions/Additional Instructions: *You have been diagnosed with [schizoaffective disorder with active paranoia. We were able to secure a psychiatric bed for you today, however you decided he would prefer not to pursue this avenue at this point time. Please remember that he may return immediately for any change of heart and we will be happy to revisit the situation. *What to do: *Please continue to take your regular medications as directed. [ ] New medication prescriptions sent to your pharmacy: [ ] [ ] New medication written as a paper prescription [ x] No new medications given *Please follow up with your primary care provider in 2-3 days, call for an appointment. Let them know you were seen in the Emergency Department and that we ask that you be seen in follow up. We will electronically transmit a record of today's note if your PCP is in our system *If you do not have a primary care provider please contact the [facility] Resource line at [phone]. They will ask some questions about your medical history and help get you set up with a doctor in the community. *Return to Emergency Department if you should have any new, worsening or concerning symptoms, such as [fever greater than 101 F, shaking chills, worsening pain, persistent vomiting or other bothersome symptoms] Prescriptions: No Action lisinopril 20 MG tablet 20 mg PO QDAY Qty: 0 0RF trazodone 150 MG tablet 150 mg PO QDAY Qty: 0 0RF perphenazine 8 MG tablet 8 mg PO Qty: 0 0RF hydroxyzine HCl 50 MG tablet 50 mg PO Q8HP PRNQty: 0 0RF olanzapine [Zyprexa] 10 mg tablet 10 mg PO DAILY Qty: 30 0RF Referrals: [facility] [Outside] [facility] [Outside]
[2021-05-24 18:22] LABS: Appearance Urine UA CLEAR; Bilirubin Urine UA NEGATIVE (NEGATIVE); Color Urine UA YELLOW; Glucose Urine UA NEGATIVE (Negative); Ketones Urine UA NEGATIVE (NEGATIVE); Leukocyte Esterase Urine UA NEGATIVE (NEGATIVE); Nitrite Urine UA NEGATIVE (Negative); Occult Blood Urine UA NEGATIVE (Negative); Protein Urine UA NEGATIVE (Negative); Urobilinogen Urine UA 0.2 E.U./dL (0.2)
[2021-05-24 18:28] LABS: UR Morphine/Opiate cutoff 300 Negative (Negative); Ur Creatinine Normal (Normal); Ur Specific Gravity Normal (Normal); Urine Cocaine Negative (Negative); Urine Tetrahydrocannabinol Negative (Negative); Urine pH Normal (Normal)
[2021-05-24 18:29] LABS: Urine Amphetamines Negative (Negative); Urine Barbiturates Negative (Negative); Urine Benzodiazepines Positive (Negative); Urine MDMA Negative (Negative); Urine Methadone Negative (Negative); Urine Methamphetamines Negative (Negative); Urine Oxycodone Negative (Negative); Urine Phencyclidine Negative (Negative); Urine Tricyclic Antidepressant Negative (Negative)
[2021-05-24 18:30] LABS: RBC Urine None Seen (0-5/HPF); WBC Urine None Seen (0-5/HPF)
[2021-05-24 18:31] LABS: Bacteria Urine None Seen; Culture Indicated Urine Cult Not Indicated; Urine Comments Microscopic Normal
[2021-05-24 18:46] LABS: INR 0.9 (0.9-1.3); Prothrombin Time 10.5 SECONDS (10.1-12.7)
[2021-05-24 18:49] LABS: PTT Partial Thromboplastin Tim 32 SECONDS (26.4-36.2)
[2021-05-24 18:53] LABS: Alanine Aminotransferase 47 IU/L (<50); Albumin 4.6 g/dL (3.5-5.0); Albumin Globulin Ratio 1.4 (1.0-2.8); Alkaline Phosphatase 46 U/L (38-126); Aspartate Aminotransferase 55 IU/L (17-59); BUN Creatinine Ratio 14.3 (6-22); Bilirubin Total 0.8 mg/dL (0.2-1.3); Blood Urea Nitrogen 13 mg/dL (9-20); Calcium 9.1 mg/dL (8.4-10.2); Carbon Dioxide 31 mmol/L (22-32); Chloride 103 mmol/L (98-107); Estimated Glomerular Filt Rate > 60.0 mL/min (>60); Ethanol (ETOH) 40 mg/dL; Globulin 3.4 g/dL (1.7-4.1); Glucose 164 mg/dL (70-100); HEMOLYSIS < 15 (0-50); Potassium 4.5 mmol/L (3.4-5.1); Sodium 138 mmol/L (137-145)
[2021-05-24 19:02] LABS: COVID19 -Nasal RAPID Negative (Negative)
--- NOTE | 2021-05-24 19:07 | CM.SWNOTE ---
DOSIMETRIST Assessment DOSIMETRIST - Speech Therapy Director Assessment DOSIMETRIST/Speech Therapy Director Assessment Time Spent with Patient Start date 05/24/21 Visit Start Time 17:55 End date 05/24/21 Visit End Time 18:15 Total time Care Management spent on 20 minutes patient visit-in minutes Mental Health Screening Include Onset, Duration, Intensity Presenting Problem Patient presents to ED seeking safety, MH help, and detox from ETOH. Patient endorses fear for his life and that someone is following him and out to kill him. Patient endorses that he has hx of suicide attempt walking into traffic and he is worried he will attempt to kill self again Precipitating Event(s) Patient endorses paranoia and concern for his safety, patient endorses fear that his life is in danger. Patient Strengths Patient is cooperative and patient is seeking help. Current Behavioral Health Provider(s) Patient endorses he sees [facility], Provider, Ph. # at [facility]. Hx Mental Health and Chemical Patient endorses hx of Dependency Schitzoaffective Disorder, Bipolar and PTSD. Patient denies that he is taking prescribed medications for MH. Patient endorses that he getting drunk on ETOH regularly to cope with fear for his life. Patient endorses hx of other substance use. Family Hx of Behavioral Abuse Patient endorses hx of unhealthy relationships with girlfriend. Psychiatric Hospitalizations (date(s)/ Patient endorses hx of going location) to inpatient hospital on a few occasions. Patient endorses hx of going to [facility] but cannot provide date . Psychosocial information & Support Patient is 46 y/o male who is Systems currently homeless in [place]. Patient endorses family across the country, friends and local LE as supports. School/Work Patient is currently unemployed Legal Concerns Legal Matters - Outstanding Issues Patient endorses he has pending charges and upcoming court date on 05/27/21 and 05/29. Mental Status Orientation (Person/Place/Time) A/Ox4 Stated Mood not safe Affect (Congruent with Mood?) Anxious/euthymic, full range, congruent with mood Thought Content - Specify/Describe Patient endorses that he is Obsessions, Delusions, Hallucinations hearing voices and someone is trying to kill and harm him. Patient endorses fear for the safety of is life. Patient endorses concern for safety at hospital and asks for ED provider and DOSIMETRIST's word that he will be safe at this hospital. Patient endorses that he could be shot or stabbed here. Thought Processes (Bzyxvqn-Oxebmyuo-Ficy tangential Bdvrsmhl-Cjiybpta-Uozykhgyrw- Chwqledgrdsdog-Cjfsxdz-Pechmavcowjg- Thought Blocking) Speech (Guwljg-Cwdj-Soekdtt-Rapid-Soft- rapid/normal Loud-Pressured) Motor (Jutxcl-Untxevnhg-Tusq-Other) normal Insight (Vtlp-Ebbp-Mgit/Limited) poor/limited Judgement (Dexh-Jwac-Shoa/Limited) poor/limited Impulse Control (Adequate-Impaired) adequate Memory (Cetpdvzdl-Zybhjl-Uizrcw, intact,not formally assessed Impaired-Intact) Concentration (Intact-Impaired) intact Attention (Intact-Impaired) intact Behavior (Appropriate-Inappropriate) appropriate. Patient is calm, cooperative and communicative but very concerned for his safety. Additional Comment Patient is connected with [place] [employer] and he has been receiving support regarding seeking resources. Risk Assessment Suicidal Ideation (Plan) Yes Homicidal Ideation (Plan) No Comment Patient denies current SI but states concern that he will kill himself due to the fear and paranoia of his life being in danger. Patient endorses that he has hx of running into traffic and he could do that again. Patient endorses that he has been drinking excessive amounts of alcohol to cope with his mental health and fears. Patient endorses he is not taking all of his prescribed medications. Intervention Intervention DOSIMETRIST enters room to meet with patient during triage. Patient has hx of 4 ED encounters in the last 4 days but has left ED prior to being seen several times. Patient was brought in by LE as patient is seeking MH services. Patient endorses interest in [facility] inpatient hospital. Patient endorses fear for his life, and concern that he will kill himself because someone is out to kill or harm him. Patient endorses that he has been trying to get into detox but there has not been availability for patient. DOSIMETRIST called [facility], [facility] and [facility] detox facilities and there are no beds. DOSIMETRIST discusses voluntary inpatient dual dx bed and patient indicate agreement and understanding. It is the opinion of this DOSIMETRIST that patient is appropriate for and will benefit from voluntary inpatient hospitalization for dual dx treatment. DOSIMETRIST reviews the above with ED provider Dr. Dominique who indicates agreement and understanding. Plan RA Plan DOSIMETRIST to seek voluntary inpatient bed for patient when medically clear. KE Walters
[2021-05-24] MEDS: LORazepam 0.5 MG TABLET 2 MG PO (19:17)
[2021-05-24 19:18] LABS: Add Manual Diff / Slide Review NO; Basophils Absolute Auto 100 /uL (0-100); Basophils Percent Auto 1.4 % (0-2); Eosinophils Absolute Auto 100 /uL (0-450); Eosinophils Percent Auto 2.8 % (2-4); Hematocrit 35.9 % (41-53); Hemoglobin 11.6 g/dL (13.5-17.5); Lymphocytes Absolute Auto 1100 /uL (1100-4500); Lymphocytes Percent Auto 29.3 % (25-40); Mean Corpuscular HGB Conc 32.3 % (30-36); Mean Corpuscular Hemoglobin 24.1 PG (26-34); Mean Corpuscular Volume 74.8 fL (80-100); Monocytes Absolute Auto 400 /uL (0-900); Monocytes Percent Auto 10.9 % (3-14); Neutrophils Absolute Auto 2100 /uL (1500-7000); Neutrophils Percent Auto 55.6 % (50-75); Platelet Count 302 X10^3/uL (150-400); Red Cell Distribution Width 15.5 % (11.6-14.8); White Blood Cell Count 3.9 X10^3/uL (4.5-11.0)
--- NOTE | 2021-05-24 20:18 | CM.SWNOTE ---
PYROTECHNIC MIXER Note PYROTECHNIC MIXER calls [facility], it is reported that they have dual dx beds and can review patient. PYROTECHNIC MIXER faxes clinicals for review. PYROTECHNIC MIXER calls [employer] dispatch to report that [facility] is reviewing patient for inpt. PYROTECHNIC MIXER reports patient's concern for Marizol Ferrall knowing this plan and concern for patient's upcoming court dates. Plan: [facility] reviewing patient for inpt bed. ED team to f/u with [facility] KE Walters
--- NOTE | 2021-05-25 01:42 | PC.NURSE ---
I received a call from [facility] [employer] dispatch; they said that pt in room 13 has made several 911 calls to report that security is shooting. Dispatch informed that there is no active shooter. Pt is on the ground, the gurney between him and the outside door, underneath the tray table. He says there is someone outside in the bushes with a thermal gun. Pt in visible distress. It's not in my head, ma'am. I suggested I'd have security check, pt stated, that's no good, they're in on it too. Pt offered meds to help him be calm and go to sleep, pt declined. Pt declined other comfort measures as well, such as lights down, drink, snack. Pt is currently lying in blankets on the floor.
--- NOTE | 2021-05-25 03:37 | PC.NURSE ---
Pt has been moved to room 8 per his request stating that he did not feel safe in room 13, he is currently talking to the guys on the other side of the the wall. He believes that he can hear people on the other side of the wall and in the bushes that want to shoot him. He has declined any meds and has refused to have vs taken telling the RN don't touch me. Pt states that he is tired and wants to sleep but refuses to have the lights out and continues to communicate with his hallucinations.
--- NOTE | 2021-05-25 08:09 | PC.NURSE ---
FIRE SUPPRESSION CAPTAIN/NEGATIVE NOTCHER called [employer] non emergent line, as requested per patient to speak with Officer Bari. [employer] notified and [employer] stated officer will be dispatched to patient room when available.
--- NOTE | 2021-05-25 09:18 | PC.NURSE ---
Called Ann when I got on shift and asked her to call [facility] and speak to [facility]. She said that she would call him and try to see what they need. I introduced myself to the patient and wanted to update him. He was apprehensive to talk to me. Wouldn't make eye contact and stated that he wanted to walk out. I let him know that [facility] had medically cleared him and that SOFTWARE TEST AUTOMATION ENGINEER was going to talk to them about his case. I asked the patient if I could step inside the room to talk to him and he stated I really don't trust you in here. I said ok I would stay at the door.
--- NOTE | 2021-05-25 09:30 | PC.NURSE ---
Ann informed me that if the patient has health insurance then he can go to [facility] but if he doesn't then they won't accept him.
--- NOTE | 2021-05-25 10:09 | PC.NURSE ---
patient is making comments about not feeling safe in [facility]. He states that he has not felt safe in [place] for a long time. He is becoming increasingly agitated and has given the department until noon to have an answer or he is going to walk out.
--- NOTE | 2021-05-25 10:28 | PC.NURSE ---
Patient stated that he has court on the and and wanted to let HOUSEHOLD APPLIANCES SERVICE TECHNICIAN know so he wouldn't in trouble.
--- NOTE | 2021-05-25 10:50 | PC.NURSE ---
KE Juarez, found to patient's insurance and is going to call catrina nasreen to confirm bed and placement. If she can confirm placement, Ann will come down and see him.
--- NOTE | 2021-05-25 11:29 | CM.SWNOTE ---
CLINICAL MANAGER HOME CARE Note: Received call this AM from ED/RN Juan M inquiring on whether or not a mental health bed had been found for this patient. Per Juan M, [facility] had been reviewing. Placed call to [facility] spoke with Andi. Andi indicates that [facility] has reviewed the records and that they cannot accept this patient without insurance. CLINICAL MANAGER HOME CARE notified Andi that patient most likely does have medical insurance but at time of admit there was nobody here to submit that information into EMR. Sent email to Griselda in admit counselors. She sent email back indicating that patient does have Medicare has primary insurance. CLINICAL MANAGER HOME CARE obtained updated demographic and faxed it to [facility].' Received return call from Andi at [facility] and they can accept. Accepting THERMODYNAMICS ENGINEER is Terra Spencer. Report needs to be called to # [phone]. [facility] does not want patient until approximately 10:30pm tonight. Instructed ED staff to set up ride around 9:30pm. Spoke with RN and he recommends that provider discuss the above with patient. Patient has been agitated and paranoid this AM. RN feels that the final plan and sweet pickle maker time should be provided by ED staff and/or provider or ED CLINICAL MANAGER HOME CARE. P: [facility] this evening. See note for details. KE Malin
--- NOTE | 2021-05-25 11:34 | PC.NURSE ---
Ann SCREEN PRINTING LOADER UNLOADER notified me that he has been accepted but [facility] has requested transport at 2130 tonight. I updated the patient and let him know. He stated that he is extremely tired and is agreeable to go to [facility] but does not want any medication to sleep. He keeps making comments about two people behind him that are making threats of physical harm. He denies SI and HI at this time.
--- NOTE | 2021-05-25 14:03 | CM.SWNOTE ---
ORIENTATION AND MOBILITY INSTRUCTOR Note Patient leaves ED and states his concern for his safety and he is not able to wait for bed at [facility]. ORIENTATION AND MOBILITY INSTRUCTOR calls [employer] dispatch, it is reported that patient is speaking with LE. ORIENTATION AND MOBILITY INSTRUCTOR is provided patient's phone number, ORIENTATION AND MOBILITY INSTRUCTOR calls patient. Patient endorses that he does not want to return to ED and will not be going to [facility]. Patient endorses he will take care of himself and protect himself. KE Walters
--- NOTE | 2021-05-25 16:51 | PC.NURSE ---
edit: patient left against medical advice, not VDC
== END 2021-05-25 13:30 | disposition home or self-care (01) ==
PROVIDERS: Emergency Medicine; Emergency Provider Emergency Medicine
DX: F25.0 Schizoaffective disorder, bipolar type (principal); F22 Delusional disorders; Z20.822 Contact with and (suspected) exposure to COVID-19
CPT/HCPCS: 80053; 80305; 80320; 81001; 85025; 85610; 85730; 87635; 99283; 99284; C9803

== ENCOUNTER 2021-05-25 22:14 | Emergency (ER) | payer MEDICAID, SELFPAY ==
[2021-05-25 23:15] VITALS: BP 122/88; PULSE 71; RESP 20; TEMP 36.4; O2SAT 99
--- NOTE | 2021-05-25 23:41 | ED_ITS ---
HPI - Psych <Anny Chacon MD - Last Filed: 05/28/21 02:06> General Chief Complaint: Psychiatric Symptoms Stated Complaint: BIPOLAR DEPRESSION DRINKING SCHIZOPHRENIA Time Seen by Provider: 05/25/21 22:52 Mode of arrival: Ambulatory History of Present Illness HPI Narrative: 46-year-old gentleman with a history of alcohol use disorder, schizoaffective bipolar type who has presented to [facility] multiple times over May 21, , , , and the . Each time he complains of being drunk, wanting detox, complains of significant paranoia. He has been belligerent and yelling at people in the waiting room. At 1 point he had the machete with him that is no longer in evidence. He has been in contact with police and it does seem that they are trying to help him get to court hearing on May 27. He states he is homeless and he is becoming increasingly paranoid. Earlier today was very concerned that there were people that could see through the julian into his room in the emergency department and he was also concerned that the security engineer(who was not in the Department of the time) was also trying to hurt him. His KAMI report indicates that his PCP is Dr. Karen Flores at [facility] but it seems like interactions work her were most recently July of 2020 or prior. It does not look like he has had significant interaction with [facility] emergency department until his current episode beginning May 21 with recurrent presentations to [facility]. After significant effort did have a detox bed at [facility] and was supposed to be there by 9:00 a.m. this evening. He chose to leave the department around 1:00 p.m. rather than wait for his scheduled detox bed. He presents again at approximately 10:00 p.m. tonight slightly intoxicated, pressured speech, tangential thinking and significantly paranoid requesting food, help with detox and a safe place to sleep Related Data Home Medications Medication Instructions Recorded Confirmed hydroxyzine HCl 50 mg tablet 50 mg PO Q8HP PRN #0 02/28/16 lisinopril 20 mg tablet 20 mg PO QDAY #0 02/28/16 perphenazine 8 mg tablet 8 mg PO #0 02/28/16 trazodone 150 mg tablet 150 mg PO QDAY #0 02/28/16 Previous Rx's Medication Instructions Recorded olanzapine 10 mg tablet (Zyprexa) 10 mg PO DAILY #30 tab 05/27/21 Allergies Allergy/AdvReac Type Severity Reaction Status Date / Time No Known Drug Allergies Allergy Verified 05/24/21 17:55 Review of Systems <Anny Chacon MD - Last Filed: 05/28/21 02:06> Review of Systems Narrative: Thinking is far too tangential to obtain meaningful review of systems answers ROS Unobtainable: Unobtainable due to medical condition Patient History <Anny Chacon MD - Last Filed: 05/28/21 02:06> Medical History Alcohol abuse PTSD (post-traumatic stress disorder) Schizoaffective disorder, bipolar type Social History Smoking Status: Current every day smoker Smoking Status: Current every day smoker alcohol intake frequency: 3 or more drinks per day Alcohol type: beer and hard liquor Substance Use Type: marijuana Exam <Anny Chacon MD - Last Filed: 05/28/21 02:06> Initial Vital Signs Initial Vital Signs: Vital Signs Temperature 97.5 F L 05/25/21 23:15 Pulse Rate 71 05/25/21 23:15 Respiratory Rate 20 05/25/21 23:15 Blood Pressure 122/88 05/25/21 23:15 Pulse Oximetry 99 05/25/21 23:15 General: Disheveled but in no acute distress. Well-nourished well-developed HEENT: Moist mucous membranes, normal sclera with reactive pupils, Respiratory: Lungs are clear to auscultation, no wheezing no rales no rhonchi. Full and symmetrical air movement Cardiac: Regular rate and rhythm no murmurs no bruits Abdomen: Soft, nontender, good bowel tones, no flank pain Skin: Warm and dry, no rashes Neurologic: Grossly neurologically intact with no obvious asymmetries or abnormalities Extremities: No trauma, well perfused Psych: Pressured tangential speech, non fluent ideas, paranoid ideation, poor eye contact <Mina Fletcher DO - Last Filed: 05/27/21 19:12> Initial Vital Signs Initial Vital Signs: Vital Signs Temperature 97.5 F L 05/25/21 23:15 Pulse Rate 71 05/25/21 23:15 Respiratory Rate 20 05/25/21 23:15 Blood Pressure 122/88 05/25/21 23:15 Pulse Oximetry 99 05/25/21 23:15 Course <Anny Chacon MD - Last Filed: 05/28/21 02:06> Orders Ordered: Discontinued Medications Olanzapine (Olanzapine 2.5 Mg Tablet) 5 mg PO NOW ONE Stop: 05/26/21 04:49 Last Admin: 05/26/21 05:00 Dose: 5 mg Documented by: CTRCRISTIANA Olanzapine (Olanzapine 2.5 Mg Tablet) 5 mg PO BEDTIME [facility] Last Admin: 05/26/21 22:10 Dose: 5 mg Documented by: ATAYLJOSE Olanzapine (Olanzapine 2.5 Mg Tablet) 5 mg PO NOW ONE Stop: 05/27/21 13:04 Last Admin: 05/27/21 13:00 Dose: Not Given Documented by: KPETERSON Vital Signs Vital signs: Vital Signs - 8 hr 05/27/21 17:59 Pulse Rate 60 Respiratory Rate 20 Blood Pressure 140/80 Pulse Oximetry 99 <Mina Fletcher DO - Last Filed: 05/27/21 19:12> Course Course Narrative: patient is medically cleared and appropriate for hospitalization Orders Ordered: Discontinued Medications Olanzapine (Olanzapine 2.5 Mg Tablet) 5 mg PO NOW ONE Stop: 05/26/21 04:49 Last Admin: 05/26/21 05:00 Dose: 5 mg Documented by: [email or web address] Olanzapine (Olanzapine 2.5 Mg Tablet) 5 mg PO BEDTIME [facility] Last Admin: 05/26/21 22:10 Dose: 5 mg Documented by: ATAYLJOSE Olanzapine (Olanzapine 2.5 Mg Tablet) 5 mg PO NOW ONE Stop: 05/27/21 13:04 Last Admin: 05/27/21 13:00 Dose: Not Given Documented by: KPETERSON Vital Signs Vital signs: Vital Signs - 8 hr 05/27/21 17:59 Pulse Rate 60 Respiratory Rate 20 Blood Pressure 140/80 Pulse Oximetry 99 [facility] - Psych <Anny Chacon MD - Last Filed: 05/28/21 02:06> Lab Data Result diagrams: 05/26/21 00:02 05/26/21 00:02 Labs: Lab Results 04/1105/26/21 05/26/21 Range/Units 00:02 00:02 00:02 WBC 5.8 (4.5-11.0) X10^3/uL RBC 4.88 (4.5-5.9) X10^6/uL Hgb 11.6 L (13.5-17.5) g/dL Hct 36.4 L (41-53) % MCV 74.6 L (80-100) fL MCH 23.9 L (26-34) PG MCHC 32.0 (30-36) % RDW 15.5 H (11.6-14.8) % Plt Count 290 (150-400) X10^3/uL Neut % (Auto) 61.7 (50-75) % Lymph % (Auto) 28.0 (25-40) % Troup % (Auto) 8.1 (3-14) % Eos % (Auto) 1.6 L (2-4) % Baso % (Auto) 0.6 (0-2) % Neut # (Auto) 3600 (2626-8936) /uL Lymph # (Auto) 1600 (3196-9554) /uL Troup # (Auto) 500 (0-900) /uL Eos # (Auto) 100 (0-450) /uL Baso # (Auto) 0 (0-100) /uL Sodium 140 (137-145) mmol/L Potassium 4.1 (3.4-5.1) mmol/L Chloride 106 (98-107) mmol/L Carbon Dioxide 27 (22-32) mmol/L BUN 15 (9-20) mg/dL Creatinine 0.94 (0.66-1.25) mg/dL Estimated GFR > 60.0 (>60) mL/min BUN/Creatinine Ratio 16.0 (6-22) Glucose 147 H (70-100) mg/dL Calcium 8.8 (8.4-10.2) mg/dL Total Bilirubin 0.6 (0.2-1.3) mg/dL AST 48 (17-59) IU/L ALT 41 (<50) IU/L Alkaline Phosphatase 41 (38-126) U/L Total Protein 7.6 (6.3-8.2) g/dL Albumin 4.2 (3.5-5.0) g/dL Globulin 3.4 (1.7-4.1) g/dL Albumin/Globulin Ratio 1.2 (1.0-2.8) U Opiates 300ng/mL cut (Negative) Ur Oxycodone Screen (Negative) Urine Methadone Screen (Negative) Ur Barbiturates Screen (Negative) U Tricyclic Antidepress (Negative) Ur Phencyclidine Scrn (Negative) Ur Amphetamines Screen (Negative) U Methamphetamines Scrn (Negative) Ur MDMA Scrn (Ecstasy) (Negative) U Benzodiazepines Scrn (Negative) Urine Cocaine Screen (Negative) U Marijuana (THC) Screen (Negative) Ethyl Alcohol 99 H ( - 10) mg/dL SARS-CoV-2 (PCR) (Negative) 05/26/21 05/26/21 Range/Units 00:16 00:16 WBC (4.5-11.0) X10^3/uL RBC (4.5-5.9) X10^6/uL Hgb (13.5-17.5) g/dL Hct (41-53) % MCV (80-100) fL MCH (26-34) PG MCHC (30-36) % RDW (11.6-14.8) % Plt Count (150-400) X10^3/uL Neut % (Auto) (50-75) % Lymph % (Auto) (25-40) % Troup % (Auto) (3-14) % Eos % (Auto) (2-4) % Baso % (Auto) (0-2) % Neut # (Auto) (5395-3077) /uL Lymph # (Auto) (7146-7008) /uL Troup # (Auto) (0-900) /uL Eos # (Auto) (0-450) /uL Baso # (Auto) (0-100) /uL Sodium (137-145) mmol/L Potassium (3.4-5.1) mmol/L Chloride (98-107) mmol/L Carbon Dioxide (22-32) mmol/L BUN (9-20) mg/dL Creatinine (0.66-1.25) mg/dL Estimated GFR (>60) mL/min BUN/Creatinine Ratio (6-22) Glucose (70-100) mg/dL Calcium (8.4-10.2) mg/dL Total Bilirubin (0.2-1.3) mg/dL AST (17-59) IU/L ALT (<50) IU/L Alkaline Phosphatase (38-126) U/L Total Protein (6.3-8.2) g/dL Albumin (3.5-5.0) g/dL Globulin (1.7-4.1) g/dL Albumin/Globulin Ratio (1.0-2.8) U Opiates 300ng/mL cut Negative (Negative) Ur Oxycodone Screen Negative (Negative) Urine Methadone Screen Negative (Negative) Ur Barbiturates Screen Negative (Negative) U Tricyclic Antidepress Negative (Negative) Ur Phencyclidine Scrn Negative (Negative) Ur Amphetamines Screen Negative (Negative) U Methamphetamines Scrn Negative (Negative) Ur MDMA Scrn (Ecstasy) Negative (Negative) U Benzodiazepines Scrn Negative (Negative) Urine Cocaine Screen Negative (Negative) U Marijuana (THC) Screen Negative (Negative) Ethyl Alcohol ( - 10) mg/dL SARS-CoV-2 (PCR) Negative (Negative) MDM Narrative Medical decision making narrative: 46-year-old woman with schizoaffective disorder bipolar type who was not currently on any medications and declines additional medications as they tend to leave him feeling groggy. He states that he needs help with detox and he in fact has been drinking however alcohol levels were 40 and today were at 99. He has some minor tremor but no significant withdrawal symptoms. Urine tox screens have been unremarkable repeatedly. He has checked in and left without being seen at least 6 times in the last 6 days including staying for to extended evaluations and then leaving when disposition has been arranged. He has had multiple interactions with the police and they do seem to be trying to help however he is to scattered and disorganized further help to be all that effective. They have brought him back to the emergency department a couple of times for further evaluation. Tonight, he states he is significantly intoxicated with his most recent drink 20 minutes prior to arrival however the majority of have his affect seems to be more mental health abnormalities rather than intoxication. I believe his behavior and paranoia is escalating over the last number of days as evidenced by the number of hours he spent coming and going from the waiting room and [facility]. He had a voluntary detox bed available today and left the emergency department so the bed was lost. I do not think he is a good obed voluntary admission and I a.m. concerned that his psychiatric issues are actually more problematic than his alcohol use as documented by his recurrent low alcohol levels. Will speak with DCR this evening. 130am he is medically cleared. He continues to request that he be in room 13 with the door closed and locked for his safety. This is similar to requests throughout the prior 6 days. 240am spoke with DCR Terry De La Rosa. will review notes 342am While speaking with Pt, pt has asked to speak to an commercial litigation attorney. Mr is working on getting an commercial litigation attorney on the phone to talk with pt. 430pm Pt very clearly wants to be voluntary and go to treatment. At this point we have made it clear that we will try for a voluntary bed tomorrow but if he chooses to leave Triage centers operated by [facility] have meds at these times: 07/2020 - nicotine, 50mg seroquel HS, hydroxizine 100mg (really 100mg) q4hrs, abilify 10mg daily, 05/2019 geodon 40mg BID, trazadone 150 hs, hydroxizine 10mg TID (yes, 10mg). olanzapine 5mg HS prn 445am Discussued all of this with aNsh. He is willing to stay to get to treatment. He understands that if he chooses to leave again he will be allowed to do so. If he chooses to come back after that then it will be evidence of poor obed voluntary treatment and we will again discuss being detained. In the meantime he is concerned about a court appointment on May 27. He was reassured by the DCR that we could talk with the court to let them know where he was and what we were working toward so that there were no legal consequences if he were unable to make that appointment. We discussed medications that he has been on in the past and he states that Seroquel and Abilify were far too sedating he did find that a low dose of olanzapine was acceptable and was ruling to try 5 mg nightly. Will order that and will anticipate sign-out to Dr. Reddy in the morning with continued social work input and attempts to hopefully find a bed again at [facility]. <Mina Fletcher, DO - Last Filed: 05/27/21 19:12> Lab Data Labs: Lab Results 04/11/22 04/11/22 04/11/22 Range/Units 00:02 00:02 00:02 WBC 5.8 (4.5-11.0) X10^3/uL RBC 4.88 (4.5-5.9) X10^6/uL Hgb 11.6 L (13.5-17.5) g/dL Hct 36.4 L (41-53) % MCV 74.6 L (80-100) fL MCH 23.9 L (26-34) PG MCHC 32.0 (30-36) % RDW 15.5 H (11.6-14.8) % Plt Count 290 (150-400) X10^3/uL Neut % (Auto) 61.7 (50-75) % Lymph % (Auto) 28.0 (25-40) % Troup % (Auto) 8.1 (3-14) % Eos % (Auto) 1.6 L (2-4) % Baso % (Auto) 0.6 (0-2) % Neut # (Auto) 3600 (1178-1524) /uL Lymph # (Auto) 1600 (7564-3130) /uL Troup # (Auto) 500 (0-900) /uL Eos # (Auto) 100 (0-450) /uL Baso # (Auto) 0 (0-100) /uL Sodium 140 (137-145) mmol/L Potassium 4.1 (3.4-5.1) mmol/L Chloride 106 (98-107) mmol/L Carbon Dioxide 27 (22-32) mmol/L BUN 15 (9-20) mg/dL Creatinine 0.94 (0.66-1.25) mg/dL Estimated GFR > 60.0 (>60) mL/min BUN/Creatinine Ratio 16.0 (6-22) Glucose 147 H (70-100) mg/dL Calcium 8.8 (8.4-10.2) mg/dL Total Bilirubin 0.6 (0.2-1.3) mg/dL AST 48 (17-59) IU/L ALT 41 (<50) IU/L Alkaline Phosphatase 41 (38-126) U/L Total Protein 7.6 (6.3-8.2) g/dL Albumin 4.2 (3.5-5.0) g/dL Globulin 3.4 (1.7-4.1) g/dL Albumin/Globulin Ratio 1.2 (1.0-2.8) U Opiates 300ng/mL cut (Negative) Ur Oxycodone Screen (Negative) Urine Methadone Screen (Negative) Ur Barbiturates Screen (Negative) U Tricyclic Antidepress (Negative) Ur Phencyclidine Scrn (Negative) Ur Amphetamines Screen (Negative) U Methamphetamines Scrn (Negative) Ur MDMA Scrn (Ecstasy) (Negative) U Benzodiazepines Scrn (Negative) Urine Cocaine Screen (Negative) U Marijuana (THC) Screen (Negative) Ethyl Alcohol 99 H ( - 10) mg/dL SARS-CoV-2 (PCR) (Negative) 05/26/21 05/26/21 Range/Units 00:16 00:16 WBC (4.5-11.0) X10^3/uL RBC (4.5-5.9) X10^6/uL Hgb (13.5-17.5) g/dL Hct (41-53) % MCV (80-100) fL MCH (26-34) PG MCHC (30-36) % RDW (11.6-14.8) % Plt Count (150-400) X10^3/uL Neut % (Auto) (50-75) % Lymph % (Auto) (25-40) % Troup % (Auto) (3-14) % Eos % (Auto) (2-4) % Baso % (Auto) (0-2) % Neut # (Auto) (4369-9865) /uL Lymph # (Auto) (9729-6553) /uL Troup # (Auto) (0-900) /uL Eos # (Auto) (0-450) /uL Baso # (Auto) (0-100) /uL Sodium (137-145) mmol/L Potassium (3.4-5.1) mmol/L Chloride (98-107) mmol/L Carbon Dioxide (22-32) mmol/L BUN (9-20) mg/dL Creatinine (0.66-1.25) mg/dL Estimated GFR (>60) mL/min BUN/Creatinine Ratio (6-22) Glucose (70-100) mg/dL Calcium (8.4-10.2) mg/dL Total Bilirubin (0.2-1.3) mg/dL AST (17-59) IU/L ALT (<50) IU/L Alkaline Phosphatase (38-126) U/L Total Protein (6.3-8.2) g/dL Albumin (3.5-5.0) g/dL Globulin (1.7-4.1) g/dL Albumin/Globulin Ratio (1.0-2.8) U Opiates 300ng/mL cut Negative (Negative) Ur Oxycodone Screen Negative (Negative) Urine Methadone Screen Negative (Negative) Ur Barbiturates Screen Negative (Negative) U Tricyclic Antidepress Negative (Negative) Ur Phencyclidine Scrn Negative (Negative) Ur Amphetamines Screen Negative (Negative) U Methamphetamines Scrn Negative (Negative) Ur MDMA Scrn (Ecstasy) Negative (Negative) U Benzodiazepines Scrn Negative (Negative) Urine Cocaine Screen Negative (Negative) U Marijuana (THC) Screen Negative (Negative) Ethyl Alcohol ( - 10) mg/dL SARS-CoV-2 (PCR) Negative (Negative) MDM Narrative Medical decision making narrative: 46-year-old woman with schizoaffective disorder bipolar type who was not currently on any medications and declines additional medications as they tend to leave him feeling groggy. He states that he needs help with detox and he in fact has been drinking however alcohol levels were 40 and today were at 99. He has some minor tremor but no significant withdrawal symptoms. Urine tox screens have been unremarkable repeatedly. He has checked in and left without being seen at least 6 times in the last 6 days including staying for to extended evaluations and then leaving when disp osition has been arranged. He has had multiple interactions with the police and they do seem to be trying to help however he is to scattered and disorganized further help to be all that effective. They have brought him back to the emergency department a couple of times for further evaluation. Tonight, he states he is significantly intoxicated with his most recent drink 20 minutes prior to arrival however the majority of have his affect seems to be more mental health abnormalities rather than intoxication. I believe his behavior and paranoia is escalating over the last number of days as evidenced by the number of hours he spent coming and going from the waiting room and [facility]. He had a voluntary detox bed available today and left the emergency department so the bed was lost. I do not think he is a good obed voluntary admission and I a.m. concerned that his psychiatric issues are actually more problematic than his alcohol use as documented by his recurrent low alcohol levels. Will speak with DCR this evening. 130am he is medically cleared. He continues to request that he be in room 13 with the door closed and locked for his safety. This is similar to requests th roughout the prior 6 days. 240am spoke with DCR Terry . will review notes 342am While speaking with Pt, pt has asked to speak to an commercial litigation attorney. Mr is working on getting an commercial litigation attorney on the phone to talk with pt. 430pm Pt very clearly wants to be voluntary and go to treatment. At this point we have made it clear that we will try for a voluntary bed tomorrow but if he chooses to leave Triage centers operated by [facility] have meds at these times: 07/2020 - nicotine, 50mg seroquel HS, hydroxizine 100mg (really 100mg) q4hrs, abilify 10mg daily, 05/2019 geodon 40mg BID, trazadone 150 hs, hydroxizine 10mg TID (yes, 10mg). olanzapine 5mg HS prn 445am Discussued all of this with Nash. He is willing to stay to get to treatment. He understands that if he chooses to leave again he will be allowed to do so. If he chooses to come back after that then it will be evidence of poor obed voluntary treatment and we will again discuss being detained. In the meantime he is concerned about a court appointment on May 27. He was reassured by the DCR that we could talk with the court to let them know where he was and what we were working toward so that there were no legal consequences if he were unable to make that appointment. We discussed medications that he has been on in the past and he states that Seroquel and Abilify were far too sedating he did find that a low dose of olanzapine was acceptable and was ruling to try 5 mg nightly. Will order that and will anticipate sign-out to Dr. Reddy in the morning with continued social work input and attempts to hopefully find a bed again at [facility]. We have continued to have daily involvement with [employer] and currently no beds are available. Patient continues to be voluntary and wishes to leave. He understan ds that if he leaves should he return he will be I TA he understands this. He has been taking olanzapine daily and I have written prescription for this. He has been given return precautions and questions answered to his apparent satisfaction Discharge Plan Departure Patient Disposition: Home Clinical Impression: Schizoaffective disorder, bipolar type Instructions: DI for Schizoaffective Disorder Activity Restrictions/Additional Instructions: *You have been diagnosed with [Schizoaffective Disorder ] *What to do: *Please continue to take your regular medications as directed. [ ] New medication prescriptions sent to your pharmacy: [ ] [x ] New medication written as a paper prescription [ ] No new medications given *Please follow up with your primary care provider in 2-3 days, call for an appointment. Let them know you were seen in the Emergency Department and that we ask that you be seen in follow up. We will electronically transmit a record of dayan leahy's note if your PCP is in our system *If you do not have a primary care provider please contact the [facility] Resource line at [phone]. They will ask some questions about your medical history and help get you set up with a doctor in the community. *Return to Emergency Department if you should have any new, worsening or concerning symptoms, such as [fever greater than 101 F, shaking chills, worsening pain, persistent vomiting or other bothersome symptoms] Prescriptions: New olanzapine [Zyprexa] 10 mg tablet 10 mg PO DAILY Qty: 30 0RF No Action lisinopril 20 MG tablet 20 mg PO QDAY Qty: 0 0RF trazodone 150 MG tablet 150 mg PO QDAY Qty: 0 0RF perphenazine 8 MG tablet 8 mg PO Qty: 0 0RF hydroxyzine HCl 50 MG tablet 50 mg PO Q8HP PRNQty: 0 0RF Referrals: [facility] [Outside]
--- NOTE | 2021-05-26 00:21 | PC.NURSE ---
Pt in room 13 with door closed per pt request.
[2021-05-26 00:22] LABS: Add Manual Diff / Slide Review NO; Basophils Absolute Auto 0 /uL (0-100); Basophils Percent Auto 0.6 % (0-2); Eosinophils Absolute Auto 100 /uL (0-450); Eosinophils Percent Auto 1.6 % (2-4); Hematocrit 36.4 % (41-53); Hemoglobin 11.6 g/dL (13.5-17.5); Lymphocytes Absolute Auto 1600 /uL (1100-4500); Mean Corpuscular Hemoglobin 23.9 PG (26-34); Mean Corpuscular Volume 74.6 fL (80-100); Monocytes Absolute Auto 500 /uL (0-900); Monocytes Percent Auto 8.1 % (3-14); Neutrophils Absolute Auto 3600 /uL (1500-7000); Neutrophils Percent Auto 61.7 % (50-75); Platelet Count 290 X10^3/uL (150-400); Red Blood Cell Count 4.88 X10^6/uL (4.5-5.9); Red Cell Distribution Width 15.5 % (11.6-14.8); White Blood Cell Count 5.8 X10^3/uL (4.5-11.0)
[2021-05-26 00:31] LABS: Alanine Aminotransferase 41 IU/L (<50); Albumin 4.2 g/dL (3.5-5.0); Albumin Globulin Ratio 1.2 (1.0-2.8); Alkaline Phosphatase 41 U/L (38-126); Aspartate Aminotransferase 48 IU/L (17-59); Bilirubin Total 0.6 mg/dL (0.2-1.3); Blood Urea Nitrogen 15 mg/dL (9-20); Calcium 8.8 mg/dL (8.4-10.2); Carbon Dioxide 27 mmol/L (22-32); Chloride 106 mmol/L (98-107); Estimated Glomerular Filt Rate > 60.0 mL/min (>60); Globulin 3.4 g/dL (1.7-4.1); Glucose 147 mg/dL (70-100); HEMOLYSIS < 15 (0-50); Potassium 4.1 mmol/L (3.4-5.1); Sodium 140 mmol/L (137-145); Total Protein 7.6 g/dL (6.3-8.2)
[2021-05-26 00:37] LABS: UR Morphine/Opiate cutoff 300 Negative (Negative); Ur Creatinine 20 (Normal); Ur Specific Gravity 1.015 (Normal); Urine Amphetamines Negative (Negative); Urine Barbiturates Negative (Negative); Urine Benzodiazepines Negative (Negative); Urine Cocaine Negative (Negative); Urine MDMA Negative (Negative); Urine Methadone Negative (Negative); Urine Methamphetamines Negative (Negative); Urine Oxycodone Negative (Negative); Urine Phencyclidine Negative (Negative); Urine Tetrahydrocannabinol Negative (Negative); Urine Tricyclic Antidepressant Negative (Negative); Urine pH 5 (Normal)
[2021-05-26 00:38] LABS: COVID19 -Nasal RAPID Negative (Negative)
[2021-05-26 01:01] LABS: Ethanol (ETOH) 99 mg/dL
--- NOTE | 2021-05-26 01:10 | PC.NURSE ---
pt appears to be sleeping on bed, respirations even and not labored, NAD
[2021-05-26] MEDS: OLANZapine 2.5 MG TABLET 5 MG PO ×2 (05:00→22:10)
--- NOTE | 2021-05-26 05:53 | PC.NURSE ---
pt in room calm and cooperative after speaking to the DCR agreed to PO zyprexa and agreeable to stay in room not detained at this time however if he leaves and returns again he will be detained by DCR
--- NOTE | 2021-05-26 06:42 | PC.NURSE ---
pt resting calm and cooperative no needs at this time
--- NOTE | 2021-05-26 12:50 | CM.SWNOTE ---
PRIVACY ANALYST Assessment Note PRIVACY ANALYST receives consult and enters room to meet with patient. Patient is 46 y/o male who has presented to the ED several times over the last week regarding concerns for ETOH detox and his mental health. Patient endorses concern for his safety and people that are after him. At this presentation to the ED, patient presents as calm, cooperative, understanding of the process in the ED and also eagerly seeking to stablize his life. Patient presents as tangential, explaining to PRIVACY ANALYST that he is juggling trying to get housing secured, manage his court matters, manage his belongings and get the help he is seeking. It is the opinion of this PRIVACY ANALYST that patient is appropriate for and will benefit from voluntary inpatient hospitalization at a dual diagnosis unit. Patient is actively seeking to detox from ETOH, manage his medication, seeking safety and stabilization. PRIVACY ANALYST reviews the above with ED provider Dr. Fletcher who indicates agreement and understanding. Patient was evaluated by DCR earlier and it was determined that patient is voluntarily seeking tx at this time and a voluntary referral. Plan: PRIVACY ANALYST to seek voluntary inpatient dual dx bed for patient. KE Walters
--- NOTE | 2021-05-26 20:30 | CM.SWNOTE ---
THREAD MACHINE OPERATOR Note THREAD MACHINE OPERATOR calls [facility], it is reported that patient is on the wait list and facility will call THREAD MACHINE OPERATOR if there are bed openings. THREAD MACHINE OPERATOR calls [facility] intake, it is reported that they have beds and can review patient again. [facility] declines patient stating he is not a good obed voluntary but will take patient if he is GISSELLE. THREAD MACHINE OPERATOR calls [facility] intake and it is reported they have beds and can review patient. [facility] declines patient due to patient's hx of going to facility voluntarily in 2019 and 2020 and eloping the facility. THREAD MACHINE OPERATOR calls [facility] intake and it is reported that they have beds and can review patient. [facility] continues to review patient. THREAD MACHINE OPERATOR provides update to [employer] dispatch regarding patient. Patient was speaking with his [facility] counselor Kimberly stout and provides consent for THREAD MACHINE OPERATOR to speak with her. She states that she plans to meet with patient tomorrow morning if patient is still at this hospital. Plan: Continue to seek voluntary inpatient bed for patient. KE Walters
--- NOTE | 2021-05-26 21:28 | PC.NURSE ---
Pt states he plans to go to bed around 2229, wants ordered Zyprexa at that time.
--- NOTE | 2021-05-26 21:47 | PC.NURSE ---
Pt walked to doorway and stated Are you guys going to keep me safe here?, RN spoke to pt and he further states he is hearing voices of people stating they are going to shoot him, states he is reporting this threat to his family and texting this to the crtts. Pt now observed to be making calls on his phones stating he is in danger and It is the same things as last time. Assurance provided to pt that he is safe here. Pt requested door open so staff can witness if he is shot.
--- NOTE | 2021-05-26 21:57 | PC.NURSE ---
pt pacing room and coming out to hallway. pt voice loud and talking about it is what it is i got people after me they made threats pt agitated and states ill take my meds after my shower pt showing rn phone and tablet and states you see what these are? these are crosses there are devils inside of all of us pt walked to shower. pt requested shower about 1.5 - 2 hrs prior and we could not provide shower. pt has phone and tablet in bathroom with him. pt given clean towels and clean scrubs.
--- NOTE | 2021-05-26 22:05 | PC.NURSE ---
pt came out of restroom and stated i just want people to stop talking about me out of my name and stop calling me asshole and stop making threats, Im not here to hurt anyone, I just want everyone to leave me the hell alone and stop talking at me making threats pt returned to restroom. pt remains boisterous and experiencing auditory hallucinations. no one near patient in er making statements pt has described. attempted to reasurre pt that we are here and want to keep him safe.
--- NOTE | 2021-05-26 22:11 | PC.NURSE ---
pt walked out of restroom into his rooom and took olanzepine po from rn in med cup. pt given yogurt and has water at bedside pt denies any other needs currently.
--- NOTE | 2021-05-26 22:31 | PC.NURSE ---
pt pacing in and out of room to talk to rn i just want people to leave me alone, im here for me i aint here for anyone else and somethings gonna happen to me either here or on the street this only happens to me in [place]. i havent heard that word in a long time asshole i just want to be left alone i want people to stop calling me names. pt hearing voices and auditory hallucinations of threats. pt states i told kerry and my family im here explained to patient no one has come in and out of room and that we are here to keep him safe pt comees in and out of room several times returning to room and cracking door. lights on at pt request.
--- NOTE | 2021-05-27 00:11 | PC.NURSE ---
Pt awake, reclining on bed, watching tablet.
--- NOTE | 2021-05-27 09:15 | PC.NURSE ---
pt has visitor, Kimberly to help him fill out court documents
[2021-05-27 10:25] VITALS: BP 140/87; PULSE 55; RESP 18; TEMP 36.1; O2SAT 97
--- NOTE | 2021-05-27 15:30 | CM.SWNOTE ---
Addendum entered by Azucena Vital 05/27/21 17:44: HUMAN MACHINE INTERFACE ENGINEER Note HUMAN MACHINE INTERFACE ENGINEER staffs patient's case with DCR and ED provider and it is determined that a DCR second opinion would be helpful at this time as patient is not been accepted at hospitals or crisis centers voluntarily due to patient's history of eloping and stating that patient is not a good obed voluntary. HUMAN MACHINE INTERFACE ENGINEER discusses this with patient and patient states that he does not want to be GISSELLE'd and would prefer to leave. Patient requests hotel voucher from [employer]. HUMAN MACHINE INTERFACE ENGINEER [facility] (Ph. # [phone]) and it is reported that patient cannot be given hotel voucher due to his hx of several hotel vouchers and not engaging with [facility]. HUMAN MACHINE INTERFACE ENGINEER provides option of patient to stay and be assessed by DCR and patient chooses to leave. Patient endorses to endorse concern for people out to get him and trying to kill him. It is the opinion of this HUMAN MACHINE INTERFACE ENGINEER that patient is safe to d/c from the ED to the community and is able to return to ED if symptoms worsen. This HUMAN MACHINE INTERFACE ENGINEER has attempted to seek voluntary placement for patient over the last 44 hours and patient has not been deemed a good candidate. If patient returns to ED it is recommended that DCR be dispatched to assess patient. HUMAN MACHINE INTERFACE ENGINEER reviews the above with ED provider Dr. Fletcher who indicates agreement and understanding. Dr. Fletcher to provide patient with rx for Zyprexa. HUMAN MACHINE INTERFACE ENGINEER calls patient's court coordinator Shireen and leaves informing her of patient's d/c. Plan: Patient to d/c to community with rx and understanding that he is leaving on his own accord. Azucena Vital, KE Original Note: HUMAN MACHINE INTERFACE ENGINEER Note HUMAN MACHINE INTERFACE ENGINEER calls [facility] to request reconsideration to review patient, it is reported that they do not have beds but may have beds tomorrow. HUMAN MACHINE INTERFACE ENGINEER calls [facility], it is reported that they are still reviewing patient and will call HUMAN MACHINE INTERFACE ENGINEER back. HUMAN MACHINE INTERFACE ENGINEER calls [facility] stabilization center, it is reported that they have beds and can review patient. HUMAN MACHINE INTERFACE ENGINEER sits with patient during intake screening call with [facility]. Patient presents as manic, labile, tangential, but responsive and cooperative to all questions asked. Patient endorses dx for Bipolar, Depression, PTSD, and Schizoaffective Disorder. Patient endorses his interest for detox, getting back on medication and dual dx treatment. Patient endorses his last drink of ETOH was on 05/25/21, patient endorses he drinks hard alcohol and beer daily. Patient endorses he started drinking when he was 1 years old but has been drinking regularly since he was 10 y/o. Patient endorses regularly THC use. Patient acknowledges that he presents as manic, patient states he drinks, blacks out and passes out. Patient endorses sweats as withdrawal symptoms and denies hx of seizures. Patient denies SI and HI. [facility] calls HUMAN MACHINE INTERFACE ENGINEER and reports that patient is too acute and patient is declined. HUMAN MACHINE INTERFACE ENGINEER has not yet informed patient of this as patient is eager to gather his belongings and go to treatment. Patient provides phone numbers for patient's family preservation caseworker through Kimberly Killian (Ph. # [phone]) and Shireen the Court Security Operations Manager (Ph. # [phone]). HUMAN MACHINE INTERFACE ENGINEER calls Kimberly and reports that Shireen would like a call if patient leaves ED or in transferred anywhere. Plan: HUMAN MACHINE INTERFACE ENGINEER to consult with DCR, pending POC for patient. KE Walters
[2021-05-27 17:59] VITALS: BP 140/80; PULSE 60; RESP 20; O2SAT 99
== END 2021-05-27 18:08 | disposition home or self-care (01) ==
PROVIDERS: Emergency Medicine; Emergency Provider Emergency Medicine
DX: F25.0 Schizoaffective disorder, bipolar type (principal); F17.200 Nicotine dependence, unspecified, uncomplicated; Z20.822 Contact with and (suspected) exposure to COVID-19
CPT/HCPCS: 80053; 80305; 80320; 85025; 87635; 99283; C9803

== ENCOUNTER 2021-06-11 02:14 | Emergency (ER) | payer MEDICARE, OTHER, SELFPAY ==
[2021-06-11 02:00] VITALS: BP 129/79; PULSE 88; RESP 20; TEMP 36.2; O2SAT 98
[2021-06-11] MEDS: OLANZapine ODT 10 MG TAB PO (02:23)
--- NOTE | 2021-06-11 02:32 | PC.NURSE ---
He knows where he is and situation,stated he drank alcohol tonight.Stated he is supposed to go to [facility] for detox and was not supposed to drink,denies wanting to harm himself or others.Speech is pressured but clear and understandable,he thinks he has herpes because he has a lesion on penis shaft,DR Desai cultured the lesion.No penile discharge noted.He has no weapons on him.
[2021-06-11 03:00] LABS: Add Manual Diff / Slide Review NO; Basophils Absolute Auto 100 /uL (0-100); Eosinophils Absolute Auto 100 /uL (0-450); Eosinophils Percent Auto 1.2 % (2-4); Hematocrit 41.6 % (41-53); Hemoglobin 13.7 g/dL (13.5-17.5); Lymphocytes Absolute Auto 2200 /uL (1100-4500); Lymphocytes Percent Auto 24.3 % (25-40); Mean Corpuscular HGB Conc 32.9 % (30-36); Mean Corpuscular Volume 73.1 fL (80-100); Monocytes Absolute Auto 600 /uL (0-900); Monocytes Percent Auto 6.5 % (3-14); Neutrophils Absolute Auto 6100 /uL (1500-7000); Platelet Count 366 X10^3/uL (150-400); Red Cell Distribution Width 15.4 % (11.6-14.8)
[2021-06-11 03:09] LABS: Alanine Aminotransferase 48 IU/L (<50); Albumin 4.6 g/dL (3.5-5.0); Albumin Globulin Ratio 1.3 (1.0-2.8); Alkaline Phosphatase 47 U/L (38-126); Aspartate Aminotransferase 52 IU/L (17-59); BUN Creatinine Ratio 14.7 (6-22); Bilirubin Total 0.7 mg/dL (0.2-1.3); Blood Urea Nitrogen 16 mg/dL (9-20); Carbon Dioxide 31 mmol/L (22-32); Chloride 102 mmol/L (98-107); Estimated Glomerular Filt Rate > 60 mL/min (>60); Ethanol (ETOH) 161 mg/dL; Globulin 3.6 g/dL (1.7-4.1); Glucose 98 mg/dL (70-100); HEMOLYSIS < 15 (0-50); Potassium 4.3 mmol/L (3.4-5.1); Sodium 143 mmol/L (137-145); Total Protein 8.2 g/dL (6.3-8.2)
[2021-06-11 03:47] LABS: Appearance Urine UA CLEAR; Bilirubin Urine UA NEGATIVE (NEGATIVE); Color Urine UA YELLOW; Glucose Urine UA NEGATIVE (Negative); Ketones Urine UA NEGATIVE (NEGATIVE); Leukocyte Esterase Urine UA NEGATIVE (NEGATIVE); Nitrite Urine UA NEGATIVE (Negative); Occult Blood Urine UA NEGATIVE (Negative); Protein Urine UA NEGATIVE (Negative); Urobilinogen Urine UA 0.2 E.U./dL (0.2)
[2021-06-11 03:55] LABS: UR Morphine/Opiate cutoff 300 Negative (Negative); Ur Creatinine 20 (Normal); Urine Amphetamines Negative (Negative); Urine Barbiturates Negative (Negative); Urine Benzodiazepines Negative (Negative); Urine Cocaine Negative (Negative); Urine MDMA Negative (Negative); Urine Methadone Negative (Negative); Urine Methamphetamines Negative (Negative); Urine Oxycodone Negative (Negative); Urine Phencyclidine Negative (Negative); Urine Tetrahydrocannabinol Negative (Negative); Urine Tricyclic Antidepressant Negative (Negative); Urine pH 5 (Normal)
--- NOTE | 2021-06-11 04:00 | ED.PSYCH ---
HPI - Psych <Opal Desai DO - Last Filed: 06/12/21 01:56> General Chief Complaint: Psychiatric Symptoms Stated Complaint: angry Time Seen by Provider: 06/11/21 02:33 Source: patient and EMS Mode of arrival: EMS History of Present Illness HPI Narrative: Patient is a 46-year-old gentleman with longstanding history of alcohol use disorder, schizoaffective bipolar type presenting to the emergency department. He has been her numerous times this month trying to go to detox for alcohol. His last visit to the ER was on 05/25/2021 he was eventually discharged but he said he went to a detox place. He was currently staying out behind the library please recall to him numerous times he told police that he was suicidal there was concern for herpes as well. He denied any active plan is he is at adamant that he is not suicidal or homicidal here in the emergency department. He says that he is quite intoxicated at this time. He is very concerned he has a herpetic lesion on his penis. He says he is supposed to go to [facility] for detox. He is cooperative here in the emergency department. He is answering questions. He says that he is very angry at the moment but he is not aggressive in any way. Related Data Home Medications Medication Instructions Recorded Confirmed hydroxyzine HCl 50 mg tablet 50 mg PO Q8HP PRN #0 02/28/16 lisinopril 20 mg tablet 20 mg PO QDAY #0 02/28/16 perphenazine 8 mg tablet 8 mg PO #0 02/28/16 trazodone 150 mg tablet 150 mg PO QDAY #0 02/28/16 Previous Rx's Medication Instructions Recorded olanzapine 10 mg tablet (Zyprexa) 10 mg PO DAILY #30 tab 05/27/21 Allergies Allergy/AdvReac Type Severity Reaction Status Date / Time No Known Drug Allergies Allergy Verified 05/24/21 17:55 Review of Systems <DO Cordelia Blanc Last Filed: 06/12/21 01:56> Review of Systems ROS Unobtainable: Unobtainable due to mental condition Psychiatric Psychiatric: Reports system reviewed and no additional complaints, except as documented, Reports paranoia, Reports visual hallucinations and Denies homicidal ideation Patient History <DO Cordelia Blanc Last Filed: 06/12/21 01:56> Medical History Alcohol abuse PTSD (post-traumatic stress disorder) Schizoaffective disorder, bipolar type Social History Smoking Status: Current every day smoker Smoking Status: Current every day smoker alcohol intake frequency: 3 or more drinks per day Alcohol type: beer and hard liquor Substance Use Type: marijuana Exam <Opal Desai DO - Last Filed: 06/12/21 01:56> Initial Vital Signs Initial Vital Signs: Vital Signs Temperature 97.1 F L 06/11/21 02:00 Pulse Rate 88 06/11/21 02:00 Respiratory Rate 20 06/11/21 02:00 Blood Pressure 129/79 06/11/21 02:00 Pulse Oximetry 98 06/11/21 02:00 GENERAL: Alert well-appearing 46-year-old male CARDIOVASCULAR: peripheral pulses in tact, cap refill <2 sec RESPIRATORY: No respiratory distress, speaks in full sentences without difficulty : Penis sore on shaft of penis possible chancre 1 cm, no fascicular lesions EXTREMITIES: Normal range of motion, no clubbing or edema. Neurovascularly intact NEUROLOGICAL: Cranial nerves II through XII grossly intact. Normal gait and speech. SKIN: Warm, dry, no petechiae, no rashes or lesions. <Migel Garcia DO - Last Filed: 06/11/21 15:07> Initial Vital Signs Initial Vital Signs: Vital Signs Temperature 97.1 F L 06/11/21 02:00 Pulse Rate 88 06/11/21 02:00 Respiratory Rate 20 06/11/21 02:00 Blood Pressure 129/79 06/11/21 02:00 Pulse Oximetry 98 06/11/21 02:00 Course <Opal Desai DO - Last Filed: 06/12/21 01:56> Orders Ordered: Discontinued Medications Olanzapine (Olanzapine Odt 10 Mg Tab) 10 mg PO BEDTIME MUKESH Last Admin: 06/11/21 02:23 Dose: 10 mg Documented by: JESSEE Vital Signs Vital signs: Vital Signs - 8 hr 06/11/21 13:30 Temperature 97.1 F L Pulse Rate 78 Respiratory Rate 16 Blood Pressure 135/81 Pulse Oximetry 99 <Migel Lanker, DO - Last Filed: 06/11/21 15:07> Orders Ordered: Discontinued Medications Olanzapine (Olanzapine Odt 10 Mg Tab) 10 mg PO BEDTIME MUKESH Last Admin: 06/11/21 02:23 Dose: 10 mg Documented by: JESSEE Vital Signs Vital signs: Vital Signs - 8 hr 06/11/21 13:30 Temperature 97.1 F L Pulse Rate 78 Respiratory Rate 16 Blood Pressure 135/81 Pulse Oximetry 99 MDM - Psych <Opal Desai, DO - Last Filed: 06/12/21 01:56> Lab Data Result diagrams: 06/11/21 02:40 06/11/21 02:40 Labs: Lab Results 06/11/21 06/11/21 06/11/21 Range/Units 02:11 02:11 02:11 WBC (4.5-11.0) X10^3/uL RBC (4.5-5.9) X10^6/uL Hgb (13.5-17.5) g/dL Hct (41-53) % MCV (80-100) fL MCH (26-34) PG MCHC (30-36) % RDW (11.6-14.8) % Plt Count (150-400) X10^3/uL Neut % (Auto) (50-75) % Lymph % (Auto) (25-40) % [place] % (Auto) (3-14) % Eos % (Auto) (2-4) % Baso % (Auto) (0-2) % Neut # (Auto) (1559-5094) /uL Lymph # (Auto) (1771-2181) /uL [place] # (Auto) (0-900) /uL Eos # (Auto) (0-450) /uL Baso # (Auto) (0-100) /uL Sodium (137-145) mmol/L Potassium (3.4-5.1) mmol/L Chloride (98-107) mmol/L Carbon Dioxide (22-32) mmol/L BUN (9-20) mg/dL Creatinine (0.66-1.25) mg/dL Estimated GFR (>60) mL/min BUN/Creatinine Ratio (6-22) Glucose (70-100) mg/dL Calcium (8.4-10.2) mg/dL Total Bilirubin (0.2-1.3) mg/dL AST (17-59) IU/L ALT (<50) IU/L Alkaline Phosphatase (38-126) U/L Total Protein (6.3-8.2) g/dL Albumin (3.5-5.0) g/dL Globulin (1.7-4.1) g/dL Albumin/Globulin Ratio (1.0-2.8) Urine Color Yellow Urine Appearance Clear Urine pH 5.0 (4.5-8.0) Ur Specific [place] 1.010 (1.000-1.035) Urine Protein Negative (Negative) Urine Glucose (UA) Negative (Negative) g/dL Urine Ketones Negative (NEGATIVE) Urine Occult Blood Negative (Negative) Urine Nitrate Negative (Negative) Urine Bilirubin Negative (NEGATIVE) Urine Urobilinogen 0.2 (0.2) E.U./dL Ur Leukocyte Esterase Negative (NEGATIVE) Urine RBC None seen (0-5/HPF) Urine WBC None seen (0-5/HPF) Urine Bacteria None seen (None) Ur Culture Indicated? Cult not indicated U Opiates 300ng/mL cut Negative (Negative) Ur Oxycodone Screen Negative (Negative) Urine Methadone Screen Negative (Negative) Ur Barbiturates Screen Negative (Negative) U Tricyclic Antidepress Negative (Negative) Ur Phencyclidine Scrn Negative (Negative) Ur Amphetamines Screen Negative (Negative) U Methamphetamines Scrn Negative (Negative) Ur MDMA Scrn (Ecstasy) Negative (Negative) U Benzodiazepines Scrn Negative (Negative) Urine Cocaine Screen Negative (Negative) U Marijuana (THC) Screen Negative (Negative) Ethyl Alcohol ( - 10) mg/dL Ur Chlamydia DNA (PCR) Not detected SARS-CoV-2 (PCR) (Negative) N gonorrhoeae DNA (PCR) Not detected 06/11/21 06/11/21 06/11/21 Range/Units 02:40 02:40 08:45 WBC 9.0 (4.5-11.0) X10^3/uL RBC 5.70 (4.5-5.9) X10^6/uL Hgb 13.7 (13.5-17.5) g/dL Hct 41.6 (41-53) % MCV 73.1 L (80-100) fL MCH 24.0 L (26-34) PG MCHC 32.9 (30-36) % RDW 15.4 H (11.6-14.8) % Plt Count 366 (150-400) X10^3/uL Neut % (Auto) 67.0 (50-75) % Lymph % (Auto) 24.3 L (25-40) % [place] % (Auto) 6.5 (3-14) % Eos % (Auto) 1.2 L (2-4) % Baso % (Auto) 1.0 (0-2) % Neut # (Auto) 6100 (2765-4737) /uL Lymph # (Auto) 2200 (6594-4374) /uL [place] # (Auto) 600 (0-900) /uL Eos # (Auto) 100 (0-450) /uL Baso # (Auto) 100 (0-100) /uL Sodium 143 (137-145) mmol/L Potassium 4.3 (3.4-5.1) mmol/L Chloride 102 (98-107) mmol/L Carbon Dioxide 31 (22-32) mmol/L BUN 16 (9-20) mg/dL Creatinine 1.09 (0.66-1.25) mg/dL Estimated GFR > 60 (>60) mL/min BUN/Creatinine Ratio 14.7 (6-22) Glucose 98 (70-100) mg/dL Calcium 9.0 (8.4-10.2) mg/dL Total Bilirubin 0.7 (0.2-1.3) mg/dL AST 52 (17-59) IU/L ALT 48 (<50) IU/L Alkaline Phosphatase 47 (38-126) U/L Total Protein 8.2 (6.3-8.2) g/dL Albumin 4.6 (3.5-5.0) g/dL Globulin 3.6 (1.7-4.1) g/dL Albumin/Globulin Ratio 1.3 (1.0-2.8) Urine Color Urine Appearance Urine pH (4.5-8.0) Ur Specific [place] (1.000-1.035) Urine Protein (Negative) Urine Glucose (UA) (Negative) g/dL Urine Ketones (NEGATIVE) Urine Occult Blood (Negative) Urine Nitrate (Negative) Urine Bilirubin (NEGATIVE) Urine Urobilinogen (0.2) E.U./dL Ur Leukocyte Esterase (NEGATIVE) Urine RBC (0-5/HPF) Urine WBC (0-5/HPF) Urine Bacteria (None) Ur Culture Indicated? U Opiates 300ng/mL cut (Negative) Ur Oxycodone Screen (Negative) Urine Methadone Screen (Negative) Ur Barbiturates Screen (Negative) U Tricyclic Antidepress (Negative) Ur Phencyclidine Scrn (Negative) Ur Amphetamines Screen (Negative) U Methamphetamines Scrn (Negative) Ur MDMA Scrn (Ecstasy) (Negative) U Benzodiazepines Scrn (Negative) Urine Cocaine Screen (Negative) U Marijuana (THC) Screen (Negative) Ethyl Alcohol 161 H ( - 10) mg/dL Ur Chlamydia DNA (PCR) SARS-CoV-2 (PCR) Negative (Negative) N gonorrhoeae DNA (PCR) MDM Narrative Medical decision making narrative: Patient is here voluntarily he is not suicidal or homicidal. Difficult to tell if he is acutely bipolar her. He was previously given Zyprexa he is given another dose of Zyprexa here in the ED. His culture of sore on penis is taken for herpes also other STD testing is added to workup. To questionable chancre reverse sore. He is clearly taking at a it might just be healing correctly. Patient is sleeping no in the ED. signed out to Dr. Jose garcia: Received turnover. Reviewed patient's history and physical exam. Patient was alert and able to stand. Patient is voluntary and would like detox/rehab. We were able to locate facility for him in [facility]. Patient is stable for transport. <Migel Garcia, DO - Last Filed: 06/11/21 15:07> Lab Data Labs: Lab Results 06/11/21 06/11/21 06/11/21 Range/Units 02:11 02:11 02:11 WBC (4.5-11.0) X10^3/uL RBC (4.5-5.9) X10^6/uL Hgb (13.5-17.5) g/dL Hct (41-53) % MCV (80-100) fL MCH (26-34) PG MCHC (30-36) % RDW (11.6-14.8) % Plt Count (150-400) X10^3/uL Neut % (Auto) (50-75) % Lymph % (Auto) (25-40) % [place] % (Auto) (3-14) % Eos % (Auto) (2-4) % Baso % (Auto) (0-2) % Neut # (Auto) (6615-4508) /uL Lymph # (Auto) (1550-8002) /uL [place] # (Auto) (0-900) /uL Eos # (Auto) (0-450) /uL Baso # (Auto) (0-100) /uL Sodium (137-145) mmol/L Potassium (3.4-5.1) mmol/L Chloride (98-107) mmol/L Carbon Dioxide (22-32) mmol/L BUN (9-20) mg/dL Creatinine (0.66-1.25) mg/dL Estimated GFR (>60) mL/min BUN/Creatinine Ratio (6-22) Glucose (70-100) mg/dL Calcium (8.4-10.2) mg/dL Total Bilirubin (0.2-1.3) mg/dL AST (17-59) IU/L ALT (<50) IU/L Alkaline Phosphatase (38-126) U/L Total Protein (6.3-8.2) g/dL Albumin (3.5-5.0) g/dL Globulin (1.7-4.1) g/dL Albumin/Globulin Ratio (1.0-2.8) Urine Color Yellow Urine Appearance Clear Urine pH 5.0 (4.5-8.0) Ur Specific [place] 1.010 (1.000-1.035) Urine Protein Negative (Negative) Urine Glucose (UA) Negative (Negative) g/dL Urine Ketones Negative (NEGATIVE) Urine Occult Blood Negative (Negative) Urine Nitrate Negative (Negative) Urine Bilirubin Negative (NEGATIVE) Urine Urobilinogen 0.2 (0.2) E.U./dL Ur Leukocyte Esterase Negative (NEGATIVE) Urine RBC None seen (0-5/HPF) Urine WBC None seen (0-5/HPF) Urine Bacteria None seen (None) Ur Culture Indicated? Cult not indicated U Opiates 300ng/mL cut Negative (Negative) Ur Oxycodone Screen Negative (Negative) Urine Methadone Screen Negative (Negative) Ur Barbiturates Screen Negative (Negative) U Tricyclic Antidepress Negative (Negative) Ur Phencyclidine Scrn Negative (Negative) Ur Amphetamines Screen Negative (Negative) U Methamphetamines Scrn Negative (Negative) Ur MDMA Scrn (Ecstasy) Negative (Negative) U Benzodiazepines Scrn Negative (Negative) Urine Cocaine Screen Negative (Negative) U Marijuana (THC) Screen Negative (Negative) Ethyl Alcohol ( - 10) mg/dL Ur Chlamydia DNA (PCR) Not detected SARS-CoV-2 (PCR) (Negative) N gonorrhoeae DNA (PCR) Not detected 06/11/21 06/11/21 06/11/21 Range/Units 02:40 02:40 08:45 WBC 9.0 (4.5-11.0) X10^3/uL RBC 5.70 (4.5-5.9) X10^6/uL Hgb 13.7 (13.5-17.5) g/dL Hct 41.6 (41-53) % MCV 73.1 L (80-100) fL MCH 24.0 L (26-34) PG MCHC 32.9 (30-36) % RDW 15.4 H (11.6-14.8) % Plt Count 366 (150-400) X10^3/uL Neut % (Auto) 67.0 (50-75) % Lymph % (Auto) 24.3 L (25-40) % [place] % (Auto) 6.5 (3-14) % Eos % (Auto) 1.2 L (2-4) % Baso % (Auto) 1.0 (0-2) % Neut # (Auto) 6100 (0937-4573) /uL Lymph # (Auto) 2200 (4767-5755) /uL [place] # (Auto) 600 (0-900) /uL Eos # (Auto) 100 (0-450) /uL Baso # (Auto) 100 (0-100) /uL Sodium 143 (137-145) mmol/L Potassium 4.3 (3.4-5.1) mmol/L Chloride 102 (98-107) mmol/L Carbon Dioxide 31 (22-32) mmol/L BUN 16 (9-20) mg/dL Creatinine 1.09 (0.66-1.25) mg/dL Estimated GFR > 60 (>60) mL/min BUN/Creatinine Ratio 14.7 (6-22) Glucose 98 (70-100) mg/dL Calcium 9.0 (8.4-10.2) mg/dL Total Bilirubin 0.7 (0.2-1.3) mg/dL AST 52 (17-59) IU/L ALT 48 (<50) IU/L Alkaline Phosphatase 47 (38-126) U/L Total Protein 8.2 (6.3-8.2) g/dL Albumin 4.6 (3.5-5.0) g/dL Globulin 3.6 (1.7-4.1) g/dL Albumin/Globulin Ratio 1.3 (1.0-2.8) Urine Color Urine Appearance Urine pH (4.5-8.0) Ur Specific [place] (1.000-1.035) Urine Protein (Negative) Urine Glucose (UA) (Negative) g/dL Urine Ketones (NEGATIVE) Urine Occult Blood (Negative) Urine Nitrate (Negative) Urine Bilirubin (NEGATIVE) Urine Urobilinogen (0.2) E.U./dL Ur Leukocyte Esterase (NEGATIVE) Urine RBC (0-5/HPF) Urine WBC (0-5/HPF) Urine Bacteria (None) Ur Culture Indicated? U Opiates 300ng/mL cut (Negative) Ur Oxycodone Screen (Negative) Urine Methadone Screen (Negative) Ur Barbiturates Screen (Negative) U Tricyclic Antidepress (Negative) Ur Phencyclidine Scrn (Negative) Ur Amphetamines Screen (Negative) U Methamphetamines Scrn (Negative) Ur MDMA Scrn (Ecstasy) (Negative) U Benzodiazepines Scrn (Negative) Urine Cocaine Screen (Negative) U Marijuana (THC) Screen (Negative) Ethyl Alcohol 161 H ( - 10) mg/dL Ur Chlamydia DNA (PCR) SARS-CoV-2 (PCR) Negative (Negative) N gonorrhoeae DNA (PCR) MDM Narrative Medical decision making narrative: Patient is here voluntarily he is not suicidal or homicidal. Difficult to tell if he is acutely bipolar her. He was previously given Zyprexa he is given another dose of Zyprexa here in the ED. His culture of sore on penis is taken for herpes also other STD testing is added to workup. To questionable chancre reverse sore. He is clearly taking at a it might just be healing correctly. Patient is sleeping no in the ED. Dr garcia: Received turnover. Reviewed patient's history and physical exam. Patient was alert and able to stand. Patient is voluntary and would like detox/rehab. We were able to locate facility for him in [facility]. Patient is stable for transport. Discharge Plan Departure Patient Disposition: Xfer [facility] Clinical Impression: Alcohol abuse
[2021-06-11 04:03] LABS: Bacteria Urine None Seen; Culture Indicated Urine Cult Not Indicated; RBC Urine None Seen (0-5/HPF); WBC Urine None Seen (0-5/HPF)
[2021-06-11 05:11] VITALS: BP 131/71; PULSE 80; RESP 18; O2SAT 97
[2021-06-11 05:13] LABS: Urine N gonorrhoeae NOT DETECTED
[2021-06-11 05:23] LABS: Urine Chlamydia NOT DETECTED
[2021-06-11 09:12] LABS: COVID19 -Nasal RAPID Negative (Negative)
--- NOTE | 2021-06-11 12:34 | PC.NURSE ---
patient given a turkey sandwich and apple juice. patient sitting up in bed eating.
[2021-06-11 13:30] VITALS: BP 135/81; PULSE 78; RESP 16; TEMP 36.2; O2SAT 99
--- NOTE | 2021-06-11 14:34 | PC.NURSE ---
I spoke with [place] intake nurse for the patient at [facility] for the nurse to nurse report. patient sitting on bed awaiting for transport.
[2021-06-12 20:36] LABS: Treponema pallidum Antibodies Non Reactive (Non Reactive)
== END 2021-06-11 14:55 ==
PROVIDERS: Emergency Medicine; Emergency Provider Emergency Medicine
DX: F10.129 Alcohol abuse with intoxication, unspecified (principal); N48.89 Other specified disorders of penis; Y90.6 Blood alcohol level of 120-199 mg/100 ml; Z20.822 Contact with and (suspected) exposure to COVID-19
CPT/HCPCS: 36415; 80053; 80305; 80320; 81001; 85025; 86780; 87255; 87491; 87591; 87635; 99283; 99284; C9803

== ENCOUNTER 2021-10-03 23:05 | Emergency (ER) | payer MEDICARE, MEDICAID, SELFPAY ==
[2021-10-03 23:00] VITALS: BP 126/76; PULSE 68; RESP 18; TEMP 36.1; O2SAT 100; BMI 28.7
--- NOTE | 2021-10-03 23:23 | PC.NURSE ---
I am fucking drunk, I am bipolar and depressed. I am going to fucking kill myself When assessing if patient has a plan of endorsed SI i am too fucking drunk to have a plan but I will Patient unable to contract for safety.
--- NOTE | 2021-10-04 01:16 | ED.PSYCH ---
HPI - Psych General Chief Complaint: Psychiatric Symptoms Stated Complaint: mental health eval Time Seen by Provider: 10/03/21 23:21 Source: police History of Present Illness HPI Narrative: This 46-year-old man comes to the emergency department in police custody. He is not under arrest but was found in the community too intoxicated to keep himself safe. He suffers from alcohol abuse, schizoaffective disorder and PTSD. The patient is unable to provide any sort of meaningful history other than to say generally he feels suicidal but has no specific plan to act upon it. He makes numerous vulgar references and makes many comments amidst a socorro of expletives. He is not aggressive towards anyone and really cannot provide a meaningful history. Related Data Home Medications Medication Instructions Recorded Confirmed hydroxyzine HCl 50 mg tablet 50 mg PO Q8HP PRN ##0 02/28/16 lisinopril 20 mg tablet 20 mg PO QDAY ##0 02/28/16 perphenazine 8 mg tablet 8 mg PO ##0 02/28/16 trazodone 150 mg tablet 150 mg PO QDAY ##0 02/28/16 Previous Rx's Medication Instructions Recorded olanzapine 10 mg tablet (Zyprexa) 10 mg PO DAILY #30 tabs 05/27/21 Allergies Allergy/AdvReac Type Severity Reaction Status Date / Time amoxicillin Allergy Verified 10/03/21 23:23 Review of Systems Review of Systems Narrative: Review of systems is not obtainable in this intoxicated gentleman. Patient History Medical History Alcohol abuse PTSD (post-traumatic stress disorder) Schizoaffective disorder, bipolar type Social History Smoking Status: Current every day smoker Smoking Status: Current every day smoker alcohol intake frequency: 3 or more drinks per day Alcohol type: beer and hard liquor Substance Use Type: marijuana Exam Narrative Exam Narrative: GENERAL: Staggering and intoxicated. Wondering about the department until he is coaxed into the room 13. Where he lays on the floor in the bathroom initially but then is encouraged to lay on the gurney which she ultimately does. He has no obvious injuries and is able to hold up his weight on his legs and move his upper extremities normally. He is in no respiratory distress. His abdomen is flat. HEAD: Atraumatic. Normocephalic. EYES: Sclera are clear without icterus. Extraocular movements are full. ENT: No rhinorrhea NECK: No visible abnormality RESPIRATORY: No respiratory distress GASTROINTESTINAL: Nondistended EXTREMITIES: No obvious trauma. NEURO: Nonfocal, normal speech SKIN: No rash or erythema of visible areas PSYCH: Normally oriented. Normal range of affect. Appropriate behavior Initial Vital Signs Initial Vital Signs: Vital Signs Temperature 97 F L 10/03/21 23:00 Pulse Rate 68 10/03/21 23:00 Respiratory Rate 18 10/03/21 23:00 Blood Pressure 126/76 10/03/21 23:00 Pulse Oximetry 100 10/03/21 23:00 Oxygen Delivery Method 10/03/21 23:00 Course Reevaluation(s) Reevaluation #1: He is sleeping quietly on the gurney it is currently 121 in the morning. He is breathing easily and in no distress. Will await his awakening to interview him more thoroughly. Vital Signs Vital signs: Vital Signs - 8 hr 10/03/21 23:00 Temperature 97 F L Pulse Rate 68 Respiratory Rate 18 Blood Pressure 126/76 Pulse Oximetry 100 Oxygen Delivery Method Room Air Discharge Plan Departure Prescriptions: No Action lisinopril 20 MG tablet 20 mg PO QDAY Qty: 0 trazodone 150 MG tablet 150 mg PO QDAY Qty: 0 perphenazine 8 MG tablet 8 mg PO Qty: 0 hydroxyzine HCl 50 MG tablet 50 mg PO Q8HP PRNQty: 0 olanzapine [Zyprexa] 10 mg tablet 10 mg PO DAILY Qty: 30 0RF
--- NOTE | 2021-10-04 07:44 | PC.NURSE ---
Checked in on patient. Patient is sleeping. Patient actively breathing as observed by the chest rise and fall. Profusion verified by checking active bilateral pedal pulse. Skin is warm, dry, intact and consistent with ethnicity.
[2021-10-04 09:09] LABS: Appearance Urine UA CLEAR; Bilirubin Urine UA NEGATIVE (NEGATIVE); Color Urine UA YELLOW; Glucose Urine UA NEGATIVE (Negative); Ketones Urine UA NEGATIVE (NEGATIVE); Leukocyte Esterase Urine UA NEGATIVE (NEGATIVE); Nitrite Urine UA NEGATIVE (Negative); Occult Blood Urine UA NEGATIVE (Negative); Protein Urine UA NEGATIVE (Negative); Specific Gravity Urine UA 1.025 (1.000-1.035); Urobilinogen Urine UA 0.2 E.U./dL (0.2)
[2021-10-04 09:13] LABS: UR Morphine/Opiate cutoff 300 Negative (Negative); Ur Creatinine Normal (Normal); Ur Specific Gravity Normal (Normal); Urine Amphetamines Negative (Negative); Urine Barbiturates Negative (Negative); Urine Benzodiazepines Negative (Negative); Urine Cocaine Negative (Negative); Urine MDMA Negative (Negative); Urine Methadone Negative (Negative); Urine Methamphetamines Negative (Negative); Urine Oxycodone Negative (Negative); Urine Phencyclidine Negative (Negative); Urine Tetrahydrocannabinol Positive (Negative); Urine Tricyclic Antidepressant Negative (Negative); Urine pH Normal (Normal)
[2021-10-04 09:15] LABS: Bacteria Urine None Seen; Culture Indicated Urine Cult Not Indicated; RBC Urine None Seen (0-5/HPF); Urine Comments Microscopic Normal; WBC Urine None Seen (0-5/HPF)
[2021-10-04] MEDS: OLANZapine ODT 10 MG TAB PO (09:49)
[2021-10-04] MEDS: lisinopriL 20 MG TABLET PO (09:50)
[2021-10-04 12:21] LABS: Add Manual Diff / Slide Review NO; Basophils Absolute Auto 0 /uL (0-100); Basophils Percent Auto 0.8 % (0-2); Eosinophils Absolute Auto 100 /uL (0-450); Eosinophils Percent Auto 1.3 % (2-4); Hematocrit 41.3 % (41-53); Hemoglobin 13.7 g/dL (13.5-17.5); Lymphocytes Absolute Auto 1600 /uL (1100-4500); Lymphocytes Percent Auto 27.9 % (25-40); Mean Corpuscular HGB Conc 33.1 % (30-36); Mean Corpuscular Hemoglobin 24.2 PG (26-34); Monocytes Absolute Auto 400 /uL (0-900); Monocytes Percent Auto 7.8 % (3-14); Neutrophils Absolute Auto 3500 /uL (1500-7000); Neutrophils Percent Auto 62.2 % (50-75); Platelet Count 316 X10^3/uL (150-400); Red Blood Cell Count 5.66 X10^6/uL (4.5-5.9); Red Cell Distribution Width 16.8 % (11.6-14.8); White Blood Cell Count 5.6 X10^3/uL (4.5-11.0)
[2021-10-04 12:33] LABS: Alanine Aminotransferase 26 IU/L (<50); Albumin 4.3 g/dL (3.5-5.0); Albumin Globulin Ratio 1.2 (1.0-2.8); Alkaline Phosphatase 51 U/L (38-126); Aspartate Aminotransferase 38 IU/L (17-59); Bilirubin Total 0.7 mg/dL (0.2-1.3); Blood Urea Nitrogen 16 mg/dL (9-20); Calcium 8.8 mg/dL (8.4-10.2); Carbon Dioxide 28 mmol/L (22-32); Chloride 104 mmol/L (98-107); Estimated Glomerular Filt Rate > 60 mL/min (>60); Ethanol (ETOH) < 10 mg/dL; Globulin 3.6 g/dL (1.7-4.1); Glucose 106 mg/dL (70-100); HEMOLYSIS < 15 (0-50); Potassium 4.3 mmol/L (3.4-5.1); Sodium 139 mmol/L (137-145); Total Protein 7.9 g/dL (6.3-8.2)
[2021-10-04 12:46] VITALS: BP 165/105; PULSE 60; RESP 18; O2SAT 98
--- NOTE | 2021-10-04 14:03 | CM.SWNOTE ---
SUSTAIN ENGINEER Assessment SUSTAIN ENGINEER - Licensed Acupuncturist Assessment Start: 10/04/21 13:47 Freq: Status: Active Protocol: Document 10/04/21 13:47 ROSAS (Rec: 10/04/21 14:01 ROSAS [id number]) SUSTAIN ENGINEER/Licensed Acupuncturist Assessment Presenting Problem HPI Narrative: This 46-year-old man comes to the emergency department in police custody. He is not under arrest but was found in the community too intoxicated to keep himself safe. He suffers from alcohol abuse, schizoaffective disorder and PTSD. The patient is unable to provide any sort of meaningful history other than to say generally he feels suicidal but has no specific plan to act upon it. He makes numerous vulgar references and makes many comments amidst a socorro of expletives. He is not aggressive towards anyone and really cannot provide a meaningful history. Precipitating Event(s) Patient tells this SUSTAIN ENGINEER he is homeless, feeling depressed lately and heard from his brother yesterday that brother is dying from known cancer dx Patient Strengths Survivor, no illicit drug use, working with case making machine operator in the community to secure stable housing, willing to get help today if bed available at MH unit Current Behavioral Health Provider(s) None reported Include Facility, Provider, Ph. # Psych. Hx Mental Health and Chemical ETOH-beer daily, no hx w/d or Dependency w/d seizures Family Hx of Behavioral Abuse Did not assess Psychiatric Hospitalizations (date(s)/ Multiple psychiatric stays, location) patient unsure of names Psychosocial information & Support Currently homeless Systems Legal Matters - Outstanding Issues Patient states has hx chcf, has a video journalist currently helping with past/present charges Orientation (Person/Place/Time) Oriented Stated Mood out of it Affect (Congruent with Mood?) Not assessed Thought Content - Specify/Describe Not assessed Obsessions, Delusions, Hallucinations Thought Processes (Crfhxis-Yodpayoo-Euqb Disorganized Wphdjddy-Rhhbeyoc-Rublfdgpkb- Hwldjilhsrsvbr-Ezedkbo-Gvxisstvdcny- Thought Blocking) Speech (Gceutn-Mvgw-Bfzntmh-Rapid-Soft- Rapid Loud-Pressured) Motor (Ubiteo-Luiegprek-Cjur-Other) Excessive Insight (Gxhz-Iptw-Ejqo/Limited) Fair Judgement (Ckqc-Hnuo-Fpig/Limited) Fair Impulse Control (Adequate-Impaired) Impaired Memory (Wtilmmxfx-Tvrsnu-Iwikuh, Not assessed Impaired-Intact) Concentration (Intact-Impaired) Impaired Attention (Intact-Impaired) Intact Behavior (Appropriate-Inappropriate) Appropriate for situation Suicidal Ideation (Plan) Yes Comment Patient endorses SI daily getting worse recently and last night patient admits to drinking heavily w/hopes of either running in front of a car, jumping [place] bridge or getting a helicopter repairer to shoot me, I dunno, I would do anything Intervention Patient would benefit from inpatient MH stabilization, Dr Fletcher agrees with this impression and patient is agreeable to plan; Voluntary placement. RA Plan Seek inpatient psychiatric bed placement
[2021-10-04 16:17] VITALS: BP 160/102; PULSE 58; RESP 16; O2SAT 98
[2021-10-04 16:22] LABS: Creatine Kinase 293 U/L (55-170); Magnesium 1.6 mg/dL (1.6-2.3)
[2021-10-04 16:34] LABS: COVID19 -Nasal RAPID Negative (Negative)
[2021-10-04 16:54] LABS: TSH w/ Reflex to FT4 0.47 uIU/mL (0.47-4.68)
--- NOTE | 2021-10-04 19:50 | ED_ITS ---
HPI - Psych General Chief Complaint: Psychiatric Symptoms Stated Complaint: mental health eval Time Seen by Provider: 10/03/21 23:21 Source: police Related Data Home Medications Medication Instructions Recorded Confirmed hydroxyzine HCl 50 mg tablet 50 mg PO Q8HP PRN ##0 02/28/16 lisinopril 20 mg tablet 20 mg PO QDAY ##0 02/28/16 perphenazine 8 mg tablet 8 mg PO ##0 02/28/16 trazodone 150 mg tablet 150 mg PO QDAY ##0 02/28/16 Previous Rx's Medication Instructions Recorded olanzapine 10 mg tablet (Zyprexa) 10 mg PO DAILY #30 tabs 05/27/21 Allergies Allergy/AdvReac Type Severity Reaction Status Date / Time amoxicillin Allergy Verified 10/03/21 23:23 Patient History Medical History Alcohol abuse PTSD (post-traumatic stress disorder) Schizoaffective disorder, bipolar type Social History Smoking Status: Current every day smoker Smoking Status: Current every day smoker alcohol intake frequency: 3 or more drinks per day Alcohol type: beer and hard liquor Substance Use Type: marijuana Exam Initial Vital Signs Initial Vital Signs: Vital Signs Temperature 97 F L 10/03/21 23:00 Pulse Rate 68 10/03/21 23:00 Respiratory Rate 18 10/03/21 23:00 Blood Pressure 126/76 10/03/21 23:00 Pulse Oximetry 100 10/03/21 23:00 Oxygen Delivery Method 10/03/21 23:00 Course Orders Ordered: Discontinued Medications Lisinopril (Lisinopril 20 Mg Tablet) 20 mg PO NOW ONE Stop: 10/04/21 08:49 Last Admin: 10/04/21 09:50 Dose: 20 mg Documented By: PERI Lisinopril (Lisinopril 20 Mg Tablet) 20 mg PO DAILY [facility] Last Admin: 10/05/21 09:12 Dose: 20 mg Documented By: PERI Olanzapine (Olanzapine Odt 10 Mg Tab) 10 mg PO NOW ONE Stop: 10/04/21 08:49 Last Admin: 10/04/21 09:49 Dose: 10 mg Documented By: PERI Olanzapine (Olanzapine Odt 10 Mg Tab) 10 mg PO DAILY [facility] [place] Last Admin: 10/05/21 09:14 Dose: 10 mg Documented By: PERI Vital Signs Vital signs: Vital Signs - 8 hr 10/05/21 09:12 10/05/21 09:11 10/05/21 10:44 Pulse Rate 64 65 85 Respiratory Rate 18 18 Blood Pressure 135/104 H 135/104 H 143/97 H Pulse Oximetry 98 98 Oxygen Delivery Method Room Air Room Air MDM - Psych Lab Data Result diagrams: 10/04/21 12:13 10/04/21 12:13 Labs: Lab Results 10/04/21 10/04/21 10/04/21 Range/Units 08:58 08:58 12:13 WBC 5.6 (4.5-11.0) X10^3/uL RBC 5.66 (4.5-5.9) X10^6/uL Hgb 13.7 (13.5-17.5) g/dL Hct 41.3 (41-53) % MCV 73.0 L (80-100) fL MCH 24.2 L (26-34) PG MCHC 33.1 (30-36) % RDW 16.8 H (11.6-14.8) % Plt Count 316 (150-400) X10^3/uL Neut % (Auto) 62.2 (50-75) % Lymph % (Auto) 27.9 (25-40) % Wagoner % (Auto) 7.8 (3-14) % Eos % (Auto) 1.3 L (2-4) % Baso % (Auto) 0.8 (0-2) % Neut # (Auto) 3500 (8143-0242) /uL Lymph # (Auto) 1600 (0788-3347) /uL Wagoner # (Auto) 400 (0-900) /uL Eos # (Auto) 100 (0-450) /uL Baso # (Auto) 0 (0-100) /uL Sodium (137-145) mmol/L Potassium (3.4-5.1) mmol/L Chloride (98-107) mmol/L Carbon Dioxide (22-32) mmol/L BUN (9-20) mg/dL Creatinine (0.66-1.25) mg/dL Estimated GFR (>60) mL/min BUN/Creatinine Ratio (6-22) Glucose (70-100) mg/dL Calcium (8.4-10.2) mg/dL Magnesium (1.6-2.3) mg/dL Total Bilirubin (0.2-1.3) mg/dL AST (17-59) IU/L ALT (<50) IU/L Alkaline Phosphatase (38-126) U/L Total Creatine Kinase (55-170) U/L Total Protein (6.3-8.2) g/dL Albumin (3.5-5.0) g/dL Globulin (1.7-4.1) g/dL Albumin/Globulin Ratio (1.0-2.8) TSH (0.47-4.68) uIU/mL Urine Color Yellow Urine Appearance Clear Urine pH 5.0 (4.5-8.0) Ur Specific Chapp[place] 1.025 (1.000-1.035) Urine Protein Negative (Negative) Urine Glucose (UA) Negative (Negative) g/dL Urine Ketones Negative (NEGATIVE) Urine Occult Blood Negative (Negative) Urine Nitrate Negative (Negative) Urine Bilirubin Negative (NEGATIVE) Urine Urobilinogen 0.2 (0.2) E.U./dL Ur Leukocyte Esterase Negative (NEGATIVE) Urine RBC None seen (0-5/HPF) Urine WBC None seen (0-5/HPF) Urine Bacteria None seen (None) Ur Culture Indicated? Cult not indicated Micro UA Comment Microscopic normal U Opiates 300ng/mL cut Negative (Negative) Ur Oxycodone Screen Negative (Negative) Urine Methadone Screen Negative (Negative) Ur Barbiturates Screen Negative (Negative) U Tricyclic Antidepress Negative (Negative) Ur Phencyclidine Scrn Negative (Negative) Ur Amphetamines Screen Negative (Negative) U Methamphetamines Scrn Negative (Negative) Ur MDMA Scrn (Ecstasy) Negative (Negative) U Benzodiazepines Scrn Negative (Negative) Urine Cocaine Screen Negative (Negative) U Marijuana (THC) Screen Positive H (Negative) Ethyl Alcohol ( - 10) mg/dL SARS-CoV-2 (PCR) (Negative) 10/04/21 10/04/21 10/04/21 Range/Units 12:13 16:11 16:11 WBC (4.5-11.0) X10^3/uL RBC (4.5-5.9) X10^6/uL Hgb (13.5-17.5) g/dL Hct (41-53) % MCV (80-100) fL MCH (26-34) PG MCHC (30-36) % RDW (11.6-14.8) % Plt Count (150-400) X10^3/uL Neut % (Auto) (50-75) % Lymph % (Auto) (25-40) % Wagoner % (Auto) (3-14) % Eos % (Auto) (2-4) % Baso % (Auto) (0-2) % Neut # (Auto) (0596-1624) /uL Lymph # (Auto) (2013-8296) /uL Wagoner # (Auto) (0-900) /uL Eos # (Auto) (0-450) /uL Baso # (Auto) (0-100) /uL Sodium 139 (137-145) mmol/L Potassium 4.3 (3.4-5.1) mmol/L Chloride 104 (98-107) mmol/L Carbon Dioxide 28 (22-32) mmol/L BUN 16 (9-20) mg/dL Creatinine 0.94 (0.66-1.25) mg/dL Estimated GFR > 60 (>60) mL/min BUN/Creatinine Ratio 17.0 (6-22) Glucose 106 H (70-100) mg/dL Calcium 8.8 (8.4-10.2) mg/dL Magnesium 1.6 (1.6-2.3) mg/dL Total Bilirubin 0.7 (0.2-1.3) mg/dL AST 38 (17-59) IU/L ALT 26 (<50) IU/L Alkaline Phosphatase 51 (38-126) U/L Total Creatine Kinase 293 H (55-170) U/L Total Protein 7.9 (6.3-8.2) g/dL Albumin 4.3 (3.5-5.0) g/dL Globulin 3.6 (1.7-4.1) g/dL Albumin/Globulin Ratio 1.2 (1.0-2.8) TSH 0.47 (0.47-4.68) uIU/mL Urine Color Urine Appearance Urine pH (4.5-8.0) Ur Specific Chappells (1.000-1.035) Urine Protein (Negative) Urine Glucose (UA) (Negative) g/dL Urine Ketones (NEGATIVE) Urine Occult Blood (Negative) Urine Nitrate (Negative) Urine Bilirubin (NEGATIVE) Urine Urobilinogen (0.2) E.U./dL Ur Leukocyte Esterase (NEGATIVE) Urine RBC (0-5/HPF) Urine WBC (0-5/HPF) Urine Bacteria (None) Ur Culture Indicated? Micro UA Comment U Opiates 300ng/mL cut (Negative) Ur Oxycodone Screen (Negative) Urine Methadone Screen (Negative) Ur Barbiturates Screen (Negative) U Tricyclic Antidepress (Negative) Ur Phencyclidine Scrn (Negative) Ur Amphetamines Screen (Negative) U Methamphetamines Scrn (Negative) Ur MDMA Scrn (Ecstasy) (Negative) U Benzodiazepines Scrn (Negative) Urine Cocaine Screen (Negative) U Marijuana (THC) Screen (Negative) Ethyl Alcohol < 10 ( - 10) mg/dL SARS-CoV-2 (PCR) (Negative) 10/04/21 Range/Units 16:12 WBC (4.5-11.0) X10^3/uL RBC (4.5-5.9) X10^6/uL Hgb (13.5-17.5) g/dL Hct (41-53) % MCV (80-100) fL MCH (26-34) PG MCHC (30-36) % RDW (11.6-14.8) % Plt Count (150-400) X10^3/uL Neut % (Auto) (50-75) % Lymph % (Auto) (25-40) % Wagoner % (Auto) (3-14) % Eos % (Auto) (2-4) % Baso % (Auto) (0-2) % Neut # (Auto) (4818-6506) /uL Lymph # (Auto) (6739-7883) /uL Wagoner # (Auto) (0-900) /uL Eos # (Auto) (0-450) /uL Baso # (Auto) (0-100) /uL Sodium (137-145) mmol/L Potassium (3.4-5.1) mmol/L Chloride (98-107) mmol/L Carbon Dioxide (22-32) mmol/L BUN (9-20) mg/dL Creatinine (0.66-1.25) mg/dL Estimated GFR (>60) mL/min BUN/Creatinine Ratio (6-22) Glucose (70-100) mg/dL Calcium (8.4-10.2) mg/dL Magnesium (1.6-2.3) mg/dL Total Bilirubin (0.2-1.3) mg/dL AST (17-59) IU/L ALT (<50) IU/L Alkaline Phosphatase (38-126) U/L Total Creatine Kinase (55-170) U/L Total Protein (6.3-8.2) g/dL Albumin (3.5-5.0) g/dL Globulin (1.7-4.1) g/dL Albumin/Globulin Ratio (1.0-2.8) TSH (0.47-4.68) uIU/mL Urine Color Urine Appearance Urine pH (4.5-8.0) Ur Specific [place]app[place] (1.000-1.035) Urine Protein (Negative) Urine Glucose (UA) (Negative) g/dL Urine Ketones (NEGATIVE) Urine Occult Blood (Negative) Urine Nitrate (Negative) Urine Bilirubin (NEGATIVE) Urine Urobilinogen (0.2) E.U./dL Ur Leukocyte Esterase (NEGATIVE) Urine RBC (0-5/HPF) Urine WBC (0-5/HPF) Urine Bacteria (None) Ur Culture Indicated? Micro UA Comment U Opiates 300ng/mL cut (Negative) Ur Oxycodone Screen (Negative) Urine Methadone Screen (Negative) Ur Barbiturates Screen (Negative) U Tricyclic Antidepress (Negative) Ur Phencyclidine Scrn (Negative) Ur Amphetamines Screen (Negative) U Methamphetamines Scrn (Negative) Ur MDMA Scrn (Ecstasy) (Negative) U Benzodiazepines Scrn (Negative) Urine Cocaine Screen (Negative) U Marijuana (THC) Screen (Negative) Ethyl Alcohol ( - 10) mg/dL SARS-CoV-2 (PCR) Negative (Negative) Discharge Plan Departure Patient Disposition: Home Clinical Impression: Depression Instructions: Depression Activity Restrictions/Additional Instructions: *You have been diagnosed with [depression and alcohol abuse, thankfully once getting back on your medications your feeling better.] *What to do: *Please continue to take your regular medications as directed. [ ] New medication prescriptions sent to your pharmacy: [ ] [ ] New medication written as a paper prescription [x ] No new medications given *Please follow up with your primary care provider in 2-3 days, call for an appointment. Let them know you were seen in the Emergency Department and that we ask that you be seen in follow up. We will electronically transmit a record of today's note if your PCP is in our system *If you do not have a primary care provider please contact the [facility] Resource line at [phone]. They will ask some questions about your medical history and help get you set up with a doctor in the community. *Return to Emergency Department if you should have any new, worsening or concerning symptoms Prescriptions: No Action lisinopril 20 MG tablet 20 mg PO QDAY Qty: 0 trazodone 150 MG tablet 150 mg PO QDAY Qty: 0 perphenazine 8 MG tablet 8 mg PO Qty: 0 hydroxyzine HCl 50 MG tablet 50 mg PO Q8HP PRNQty: 0 olanzapine [Zyprexa] 10 mg tablet 10 mg PO DAILY Qty: 30 0RF Referrals: [facility] [Outside] Visit Report Forms: Patient Portal/API
[2021-10-05 09:11] VITALS: BP 135/104; PULSE 65; RESP 18; O2SAT 98
[2021-10-05 09:12] VITALS: BP 135/104; PULSE 64
[2021-10-05] MEDS: lisinopriL 20 MG TABLET PO (09:12)
[2021-10-05] MEDS: OLANZapine ODT 10 MG TAB PO (09:14)
[2021-10-05 10:44] VITALS: BP 143/97; PULSE 85; RESP 18; O2SAT 98
== END 2021-10-05 10:47 | disposition home or self-care (01) ==
PROVIDERS: Emergency Provider Emergency Medicine
DX: F10.129 Alcohol abuse with intoxication, unspecified (principal); Z20.822 Contact with and (suspected) exposure to COVID-19; R07.9 Chest pain, unspecified
CPT/HCPCS: 36415; 80053; 80305; 80320; 81001; 82550; 83735; 84443; 85025; 87635; 93005; 93010; 99283; C9803

== ENCOUNTER 2021-10-05 14:04 | Emergency (ER) | payer MEDICARE, MEDICAID, SELFPAY ==
--- NOTE | 2021-10-05 14:05 | DI.CT.S_ITS ---
PROCEDURE: CT HEAD/BRAIN WO CON INDICATIONS: altered TECHNIQUE: Noncontrast 5 mm thick angled axial sections acquired from the foramen magnum to the vertex, with coronal and sagittal reformats. For radiation dose reduction, the following was used: automated exposure control, adjustment of mA and/or kV according to patient size. COMPARISON: None. FINDINGS: Image quality: Excellent. CSF spaces: Basal cisterns are patent. No extra-axial fluid collections. Ventricles are normal in size and shape. Brain: No midline shift. No intracranial masses or hemorrhage. Pavon-white matter interface is normal. Skull and face: Calvarium and visualized facial bones are intact, without suspicious lesions. Sinuses: Visualized sinuses and mastoids are clear. IMPRESSION: Unremarkable CT brain Approved by: Giacomo Payan M.D. on 10/05/2021 at 14:29
--- NOTE | 2021-10-05 14:05 | DI.RAD.S_ITS ---
PROCEDURE: XR CHEST 1V INDICATIONS: syncope TECHNIQUE: One view of the chest was acquired. COMPARISON: None. FINDINGS: Surgical changes and devices: None. Lungs and pleura: Lungs are clear. No pleural effusions or pneumothorax. Low lung volumes accentuate pulmonary interstitium and heart size. Mediastinum: Mediastinal contours appear normal. Heart size is normal. Bones and chest wall: No suspicious bony lesions. Overlying soft tissues appear unremarkable. IMPRESSION: No acute cardiopulmonary findings Approved by: Giacomo Payan M.D. on 10/05/2021 at 14:32
[2021-10-05 14:19] LABS: Add Manual Diff / Slide Review NO; Basophils Absolute Auto 100 /uL (0-100); Basophils Percent Auto 0.9 % (0-2); Eosinophils Absolute Auto 100 /uL (0-450); Eosinophils Percent Auto 0.9 % (2-4); Hematocrit 38.8 % (41-53); Hemoglobin 12.8 g/dL (13.5-17.5); Lymphocytes Absolute Auto 1400 /uL (1100-4500); Lymphocytes Percent Auto 23.4 % (25-40); Mean Corpuscular HGB Conc 32.8 % (30-36); Mean Corpuscular Volume 73.2 fL (80-100); Monocytes Absolute Auto 400 /uL (0-900); Monocytes Percent Auto 6.1 % (3-14); Neutrophils Absolute Auto 4200 /uL (1500-7000); Neutrophils Percent Auto 68.7 % (50-75); Platelet Count 303 X10^3/uL (150-400); Red Blood Cell Count 5.31 X10^6/uL (4.5-5.9); Red Cell Distribution Width 16.9 % (11.6-14.8); White Blood Cell Count 6.1 X10^3/uL (4.5-11.0)
[2021-10-05 14:21] VITALS: BP 85/51; PULSE 65; RESP 12; TEMP 36.4; O2SAT 93; BMI 28.5
[2021-10-05 14:30] LABS: Acetaminophen < 10 ug/mL (10-30); Alanine Aminotransferase 24 IU/L (<50); Albumin Globulin Ratio 1.2 (1.0-2.8); Alkaline Phosphatase 42 U/L (38-126); Aspartate Aminotransferase 41 IU/L (17-59); BUN Creatinine Ratio 14.8 (6-22); Blood Urea Nitrogen 19 mg/dL (9-20); Calcium 8.6 mg/dL (8.4-10.2); Carbon Dioxide 20 mmol/L (22-32); Chloride 104 mmol/L (98-107); Creatine Kinase 266 U/L (55-170); Estimated Glomerular Filt Rate > 60 mL/min (>60); Ethanol (ETOH) 31 mg/dL; Globulin 3.3 g/dL (1.7-4.1); Glucose 148 mg/dL (70-100); Lipase 84 U/L (23-300); Magnesium 1.6 mg/dL (1.6-2.3); Potassium 3.8 mmol/L (3.4-5.1); Salicylate < 1.0 mg/dL (<20); Sodium 136 mmol/L (137-145); Total Protein 7.3 g/dL (6.3-8.2)
[2021-10-05 14:41] LABS: NT-proBNP (BNP-Adult 18+) 72 pg/mL (<125); Troponin I 0.014 ng/mL (0.01-0.034)
[2021-10-05 14:44] LABS: CKMB % Relative Index 0.9 % (1.5-5.0); Creatine Kinase MB 2.47 ng/mL (<2.37)
[2021-10-05 14:46] LABS: HEMOLYSIS 50 (0-50)
[2021-10-05] MEDS: SODIUM CHLORIDE 0.9% 1,000 ML 1000 ML IV (15:06)
[2021-10-05 15:25] LABS: Lactate (Lactic Acid) 1.2 mmol/L (0.7-2.1)
[2021-10-05] MEDS: LACTATED RINGERS 1,000 ML 1000 ML IV (16:12)
[2021-10-05 16:45] VITALS: BP 99/57; PULSE 57; O2SAT 98
--- NOTE | 2021-10-05 17:28 | PC.NURSE ---
[facility] delivered the patient's belongings to the ED ambulance bay. This was done to alleviate the stress of the patient wanting to leave the ER for fear of his belongings being stolen.
[2021-10-05 17:42] LABS: COVID19 -Nasal RAPID Negative (Negative)
--- NOTE | 2021-10-05 19:23 | ED.SYNCOPE ---
HPI - Syncope General Chief Complaint: Toxicology Problem Stated Complaint: too much to drink Time Seen by Provider: 10/05/21 14:10 Source: EMS Mode of arrival: EMS Limitations: no limitations History of Present Illness HPI narrative: 46-year-old male occasional smoker with history of hypertension, bipolar and alcohol abuse returns by EMS. He had recently been here after going without his medications for a few weeks and developing suicidal ideation, he admittedly drank large amounts of alcohol to cope and once he sobered up was open to the idea of placement. He had been started back on his medications and earlier today started feeling much better and was able to contract for safety and wanted to go home. Rather than going home he obtained alcohol and drank a copious amount and was found unresponsive sitting in the hot sun. On arrival EMS state he was syncopal or near syncopal every time they moved him and initial blood pressures were in the 60s and 70s. IV was started and fluids administered and route. He denies any suicidal or homicidal ideation and is open to the concept of placement Related Data Home Medications Medication Instructions Recorded Confirmed hydroxyzine HCl 50 mg tablet 50 mg PO Q8HP PRN ##0 02/28/16 lisinopril 20 mg tablet 20 mg PO QDAY ##0 02/28/16 perphenazine 8 mg tablet 8 mg PO ##0 02/28/16 trazodone 150 mg tablet 150 mg PO QDAY ##0 02/28/16 Previous Rx's Medication Instructions Recorded olanzapine 10 mg tablet (Zyprexa) 10 mg PO DAILY #30 tabs 05/27/21 Allergies Allergy/AdvReac Type Severity Reaction Status Date / Time amoxicillin Allergy Verified 10/03/21 23:23 Review of Systems Review of Systems Narrative: GENERAL: See HPI s. HEENT: Denies sinus pain, ear pain, sore throat, difficulty swallowing, dizziness. RESPIRATORY: Denies dyspnea, cough, wheezing, hemoptysis, sputum. CARDIOVASCULAR: See HPI GASTROINTESTINAL: Denies nausea, vomiting, abdominal pain, diarrhea, constipation, melena. : Denies dysuria, frequency, incontinence, hematuria, urinary retention. MUSCULOSKELETAL: denies weakness, joint pain, or bony pain SKIN: Denies rash, skin lesions, or other NEUROLOGIC: Denies weakness, headache, numbness, change in speech, confusion, seizures, incoordination. PSYCHIATRIC: No concerning psychosocial issues. 12 point review of systems is negative except for those stated above Patient History Medical History Alcohol abuse PTSD (post-traumatic stress disorder) Schizoaffective disorder, bipolar type Social History Smoking Status: Current every day smoker Smoking Status: Current every day smoker alcohol intake frequency: 3 or more drinks per day Alcohol type: beer and hard liquor Substance Use Type: marijuana Exam Narrative Exam Narrative: GENERAL: [46] year old patient appears stated age. Arousable to noxious stimuli, guarding his airway and controlling secretions HEAD: Atraumatic. Normocephalic. EYES: Pupils equal round and reactive. Extraocular motions intact. No scleral icterus. No injection or drainage. ENT: Dry mucous membranes Nose without bleeding, purulent drainage. Throat without erythema, tonsillar hypertrophy or exudate. Airway patent. NECK: Trachea midline. Non tender CARDIOVASCULAR: Regular rate and rhythm without murmurs, gallops, or rubs. RESPIRATORY: Clear to auscultation. Breath sounds equal bilaterally. No wheezes, rales, or rhonchi. GASTROINTESTINAL: Abdomen soft, non-tender, nondistended. EXTREMITIES: No edema or joint tenderness. BACK: Nontender without deformity or crepitance. No flank tenderness. NEURO: AOx3. SKIN: Sweaty No rash or erythema of visible areas Initial Vital Signs Initial Vital Signs: Vital Signs Temperature 97.6 F 10/05/21 14:21 Pulse Rate 65 10/05/21 14:21 Respiratory Rate 12 10/05/21 14:21 Blood Pressure 85/51 L 10/05/21 14:21 Pulse Oximetry 93 10/05/21 14:21 Oxygen Delivery Method 10/05/21 14:21 Course Orders Ordered: ED Orders 10/06/21 12:15 Consult to ASSOCIATE SCHOOL PSYCHOLOGIST - Bowl Attendant Stat 10/06/21 14:41 CK [Creatine Kinase] Stat Discontinued Medications Sodium Chloride (Normal Saline 0.9%) 1,000 mls @ 1,000 mls/hr IV BOLUS ONE Stop: 10/05/21 15:02 Last Infusion: 10/05/21 16:12 Dose: 0 mls/hr Documented By: Admin: 10/05/21 15:06 Dose: 1,000 mls/hr Documented By: SHANTAL Lactated Ringer's (Lactated Ringers) 1,000 mls @ 1,000 mls/hr IV BOLUS ONE Stop: 10/05/21 17:05 Last Infusion: 10/05/21 18:02 Dose: 0 mls/hr Documented By: Admin: 10/05/21 16:12 Dose: 1,000 mls/hr Documented By: SHANTAL Lisinopril (Lisinopril 20 Mg Tablet) 20 mg PO NOW ONE Stop: 10/06/21 07:56 Last Admin: 10/06/21 08:07 Dose: 20 mg Documented By: LYN Olanzapine (Olanzapine Odt 10 Mg Tab) 10 mg PO NOW ONE Stop: 10/06/21 07:56 Last Admin: 10/06/21 08:07 Dose: 10 mg Documented By: LYN Reevaluation(s) Reevaluation #1: Patient continuing to improve after a few L of fluid. He is awake, alert and oriented, denies suicidal or homicidal ideation, is open to the concept of placement. Blood pressures are now in the low 100s Vital Signs Vital signs: Vital Signs - 8 hr 10/06/21 14:16 10/06/21 18:12 Pulse Rate 53 L 51 L Respiratory Rate 18 Blood Pressure 141/90 H 136/79 Pulse Oximetry 99 99 Oxygen Delivery Method Room Air Room Air MDM - Syncope Lab Data Result diagrams: 10/05/21 14:05 10/05/21 14:05 Labs: Lab Results 10/05/21 10/05/21 10/05/21 Range/Units 14:05 14:05 14:05 WBC 6.1 (4.5-11.0) X10^3/uL RBC 5.31 (4.5-5.9) X10^6/uL Hgb 12.8 L (13.5-17.5) g/dL Hct 38.8 L (41-53) % MCV 73.2 L (80-100) fL MCH 24.0 L (26-34) PG MCHC 32.8 (30-36) % RDW 16.9 H (11.6-14.8) % Plt Count 303 (150-400) X10^3/uL Neut % (Auto) 68.7 (50-75) % Lymph % (Auto) 23.4 L (25-40) % [place] % (Auto) 6.1 (3-14) % Eos % (Auto) 0.9 L (2-4) % Baso % (Auto) 0.9 (0-2) % Neut # (Auto) 4200 (9366-5134) /uL Lymph # (Auto) 1400 (8550-6596) /uL [place]ergus # (Auto) 400 (0-900) /uL Eos # (Auto) 100 (0-450) /uL Baso # (Auto) 100 (0-100) /uL Sodium 136 L (137-145) mmol/L Potassium 3.8 (3.4-5.1) mmol/L Chloride 104 (98-107) mmol/L Carbon Dioxide 20 L (22-32) mmol/L BUN 19 (9-20) mg/dL Creatinine 1.28 H (0.66-1.25) mg/dL Estimated GFR > 60 (>60) mL/min BUN/Creatinine Ratio 14.8 (6-22) Glucose 148 H (70-100) mg/dL Lactate (0.7-2.1) mmol/L Calcium 8.6 (8.4-10.2) mg/dL Magnesium 1.6 (1.6-2.3) mg/dL Total Bilirubin 1.0 (0.2-1.3) mg/dL AST 41 (17-59) IU/L ALT 24 (<50) IU/L Alkaline Phosphatase 42 (38-126) U/L Total Creatine Kinase 266 H (55-170) U/L CK-MB (CK-2) 2.47 H (<2.37) ng/mL CK-MB (CK-2) Rel Index 0.9 L (1.5-5.0) % Troponin I 0.014 (0.01-0.034) ng/mL NT-Pro-B Natriuret Pep 72 (<125) pg/mL Total Protein 7.3 (6.3-8.2) g/dL Albumin 4.0 (3.5-5.0) g/dL Globulin 3.3 (1.7-4.1) g/dL Albumin/Globulin Ratio 1.2 (1.0-2.8) Lipase 84 (23-300) U/L Urine Color Urine Appearance Urine pH (4.5-8.0) Ur Specific [place] (1.000-1.035) Urine Protein (Negative) Urine Glucose (UA) (Negative) g/dL Urine Ketones (NEGATIVE) Urine Occult Blood (Negative) Urine Nitrate (Negative) Urine Bilirubin (NEGATIVE) Urine Urobilinogen (0.2) E.U./dL Ur Leukocyte Esterase (NEGATIVE) Urine RBC (0-5/HPF) Urine WBC (0-5/HPF) Urine Bacteria (None) Ur Culture Indicated? Micro UA Comment Salicylates < 1.0 (<20) mg/dL U Opiates 300ng/mL cut (Negative) Ur Oxycodone Screen (Negative) Urine Methadone Screen (Negative) Acetaminophen < 10 (10-30) ug/mL Ur Barbiturates Screen (Negative) U Tricyclic Antidepress (Negative) Ur Phencyclidine Scrn (Negative) Ur Amphetamines Screen (Negative) U Methamphetamines Scrn (Negative) Ur MDMA Scrn (Ecstasy) (Negative) U Benzodiazepines Scrn (Negative) Urine Cocaine Screen (Negative) U Marijuana (THC) Screen (Negative) Ethyl Alcohol 31 H ( - 10) mg/dL SARS-CoV-2 (PCR) (Negative) 10/05/21 10/05/21 10/05/21 Range/Units 15:03 17:03 19:53 WBC (4.5-11.0) X10^3/uL RBC (4.5-5.9) X10^6/uL Hgb (13.5-17.5) g/dL Hct (41-53) % MCV (80-100) fL MCH (26-34) PG MCHC (30-36) % RDW (11.6-14.8) % Plt Count (150-400) X10^3/uL Neut % (Auto) (50-75) % Lymph % (Auto) (25-40) % [place] % (Auto) (3-14) % Eos % (Auto) (2-4) % Baso % (Auto) (0-2) % Neut # (Auto) (6304-6429) /uL Lymph # (Auto) (9454-3738) /uL [place] # (Auto) (0-900) /uL Eos # (Auto) (0-450) /uL Baso # (Auto) (0-100) /uL Sodium (137-145) mmol/L Potassium (3.4-5.1) mmol/L Chloride (98-107) mmol/L Carbon Dioxide (22-32) mmol/L BUN (9-20) mg/dL Creatinine (0.66-1.25) mg/dL Estimated GFR (>60) mL/min BUN/Creatinine Ratio (6-22) Glucose (70-100) mg/dL Lactate 1.2 (0.7-2.1) mmol/L Calcium (8.4-10.2) mg/dL Magnesium (1.6-2.3) mg/dL Total Bilirubin (0.2-1.3) mg/dL AST (17-59) IU/L ALT (<50) IU/L Alkaline Phosphatase (38-126) U/L Total Creatine Kinase (55-170) U/L CK-MB (CK-2) (<2.37) ng/mL CK-MB (CK-2) Rel Index (1.5-5.0) % Troponin I (0.01-0.034) ng/mL NT-Pro-B Natriuret Pep (<125) pg/mL Total Protein (6.3-8.2) g/dL Albumin (3.5-5.0) g/dL Globulin (1.7-4.1) g/dL Albumin/Globulin Ratio (1.0-2.8) Lipase (23-300) U/L Urine Color Urine Appearance Urine pH (4.5-8.0) Ur Specific [place] (1.000-1.035) Urine Protein (Negative) Urine Glucose (UA) (Negative) g/dL Urine Ketones (NEGATIVE) Urine Occult Blood (Negative) Urine Nitrate (Negative) Urine Bilirubin (NEGATIVE) Urine Urobilinogen (0.2) E.U./dL Ur Leukocyte Esterase (NEGATIVE) Urine RBC (0-5/HPF) Urine WBC (0-5/HPF) Urine Bacteria (None) Ur Culture Indicated? Micro UA Comment Salicylates (<20) mg/dL U Opiates 300ng/mL cut Negative (Negative) Ur Oxycodone Screen Negative (Negative) Urine Methadone Screen Negative (Negative) Acetaminophen (10-30) ug/mL Ur Barbiturates Screen Negative (Negative) U Tricyclic Antidepress Negative (Negative) Ur Phencyclidine Scrn Negative (Negative) Ur Amphetamines Screen Negative (Negative) U Methamphetamines Scrn Negative (Negative) Ur MDMA Scrn (Ecstasy) Negative (Negative) U Benzodiazepines Scrn Negative (Negative) Urine Cocaine Screen Negative (Negative) U Marijuana (THC) Screen Negative (Negative) Ethyl Alcohol ( - 10) mg/dL SARS-CoV-2 (PCR) Negative (Negative) 10/05/21 10/06/21 Range/Units 19:53 14:41 WBC (4.5-11.0) X10^3/uL RBC (4.5-5.9) X10^6/uL Hgb (13.5-17.5) g/dL Hct (41-53) % MCV (80-100) fL MCH (26-34) PG MCHC (30-36) % RDW (11.6-14.8) % Plt Count (150-400) X10^3/uL Neut % (Auto) (50-75) % Lymph % (Auto) (25-40) % [place] % (Auto) (3-14) % Eos % (Auto) (2-4) % Baso % (Auto) (0-2) % Neut # (Auto) (8097-1040) /uL Lymph # (Auto) (0572-7584) /uL [place] # (Auto) (0-900) /uL Eos # (Auto) (0-450) /uL Baso # (Auto) (0-100) /uL Sodium (137-145) mmol/L Potassium (3.4-5.1) mmol/L Chloride (98-107) mmol/L Carbon Dioxide (22-32) mmol/L BUN (9-20) mg/dL Creatinine (0.66-1.25) mg/dL Estimated GFR (>60) mL/min BUN/Creatinine Ratio (6-22) Glucose (70-100) mg/dL Lactate (0.7-2.1) mmol/L Calcium (8.4-10.2) mg/dL Magnesium (1.6-2.3) mg/dL Total Bilirubin (0.2-1.3) mg/dL AST (17-59) IU/L ALT (<50) IU/L Alkaline Phosphatase (38-126) U/L Total Creatine Kinase 153 (55-170) U/L CK-MB (CK-2) (<2.37) ng/mL CK-MB (CK-2) Rel Index (1.5-5.0) % Troponin I (0.01-0.034) ng/mL NT-Pro-B Natriuret Pep (<125) pg/mL Total Protein (6.3-8.2) g/dL Albumin (3.5-5.0) g/dL Globulin (1.7-4.1) g/dL Albumin/Globulin Ratio (1.0-2.8) Lipase (23-300) U/L Urine Color Yellow Urine Appearance Clear Urine pH 5.0 (4.5-8.0) Ur Specific [place] 1.015 (1.000-1.035) Urine Protein Negative (Negative) Urine Glucose (UA) Negative (Negative) g/dL Urine Ketones Negative (NEGATIVE) Urine Occult Blood Negative (Negative) Urine Nitrate Negative (Negative) Urine Bilirubin Negative (NEGATIVE) Urine Urobilinogen 0.2 (0.2) E.U./dL Ur Leukocyte Esterase Negative (NEGATIVE) Urine RBC None seen (0-5/HPF) Urine WBC None seen (0-5/HPF) Urine Bacteria None seen (None) Ur Culture Indicated? Cult not indicated Micro UA Comment Microscopic normal Salicylates (<20) mg/dL U Opiates 300ng/mL cut (Negative) Ur Oxycodone Screen (Negative) Urine Methadone Screen (Negative) Acetaminophen (10-30) ug/mL Ur Barbiturates Screen (Negative) U Tricyclic Antidepress (Negative) Ur Phencyclidine Scrn (Negative) Ur Amphetamines Screen (Negative) U Methamphetamines Scrn (Negative) Ur MDMA Scrn (Ecstasy) (Negative) U Benzodiazepines Scrn (Negative) Urine Cocaine Screen (Negative) U Marijuana (THC) Screen (Negative) Ethyl Alcohol ( - 10) mg/dL SARS-CoV-2 (PCR) (Negative) MDM Narrative Medical decision making narrative: patient willingly pursues placement. [facility] happy to accept Critical Care Time Critical Care Time Critical Care Time: Yes Total Critical Care Time: 30 Attestation: The high probability of a clinically significant, sudden or life threatening deterioration of the [Psych, CV] system(s) required my full and direct attention, intervention and personal management. The aggregate critical care time was 30 minutes. This time is in addition to time spent performing reported procedures but includes the following: [x] Data Review and interpretation [x] Patient assessment and monitoring of vital signs [x] Documentation [x] Medication orders and management Discharge Plan Departure Patient Disposition: Xfer Psychiatric Hosp Clinical Impression: Schizoaffective disorder, bipolar type, Alcohol abuse Referrals: Miscellaneous,Doctor, MD [Primary Care Provider] -
[2021-10-05 22:20] LABS: Appearance Urine UA CLEAR; Bilirubin Urine UA NEGATIVE (NEGATIVE); Color Urine UA YELLOW; Glucose Urine UA NEGATIVE (Negative); Ketones Urine UA NEGATIVE (NEGATIVE); Leukocyte Esterase Urine UA NEGATIVE (NEGATIVE); Nitrite Urine UA NEGATIVE (Negative); Occult Blood Urine UA NEGATIVE (Negative); Protein Urine UA NEGATIVE (Negative); Specific Gravity Urine UA 1.015 (1.000-1.035); Urobilinogen Urine UA 0.2 E.U./dL (0.2)
[2021-10-05 22:23] LABS: Ur Creatinine Normal (Normal); Ur Specific Gravity Normal (Normal); Urine Tetrahydrocannabinol Negative (Negative); Urine pH Normal (Normal)
[2021-10-05 22:24] LABS: UR Morphine/Opiate cutoff 300 Negative (Negative); Urine Amphetamines Negative (Negative); Urine Barbiturates Negative (Negative); Urine Benzodiazepines Negative (Negative); Urine Cocaine Negative (Negative); Urine MDMA Negative (Negative); Urine Methadone Negative (Negative); Urine Methamphetamines Negative (Negative); Urine Oxycodone Negative (Negative); Urine Phencyclidine Negative (Negative); Urine Tricyclic Antidepressant Negative (Negative)
[2021-10-05 22:25] LABS: Bacteria Urine None Seen; Culture Indicated Urine Cult Not Indicated; RBC Urine None Seen (0-5/HPF); Urine Comments Microscopic Normal; WBC Urine None Seen (0-5/HPF)
[2021-10-05 22:57] VITALS: BP 118/72; PULSE 62; RESP 14; O2SAT 100
--- NOTE | 2021-10-06 | PC.NURSE ---
resting quietly on stretcher eyes closed resp even and unlabored
[2021-10-06 08:00] VITALS: BP 125/87; PULSE 58; RESP 14; O2SAT 98
[2021-10-06 08:07] VITALS: BP 125/87; PULSE 58
[2021-10-06] MEDS: lisinopriL 20 MG TABLET PO (08:07)
[2021-10-06] MEDS: OLANZapine ODT 10 MG TAB PO (08:07)
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
[2021-10-06 14:16] VITALS: BP 141/90; PULSE 53; RESP 18; O2SAT 99
[2021-10-06 14:58] LABS: Creatine Kinase 153 U/L (55-170)
--- NOTE | 2021-10-06 15:27 | CM.SWNOTE ---
Addendum entered by Azucena Vital 10/06/21 16:34: PHOTOLITHOGRAPHIC STRIPPER arranges with patient and [employer] LE to take patient's belongings in ambulance pay to patient's storage unit at [facility]. LE officer arrives to take keys to unit and gets verbal confirmation from patient. Patient indicates agreement and understanding. KENDALL Walters Original Note: PHOTOLITHOGRAPHIC STRIPPER Note PHOTOLITHOGRAPHIC STRIPPER calls [facility], it is reported that they have beds and can review patient. PHOTOLITHOGRAPHIC STRIPPER faxes clinicals for review. [facility] intake, Familia calls back and requests updated CK and blood pressure vitals, PHOTOLITHOGRAPHIC STRIPPER faxes these for review. [facility] calls and states that patient is accepted by accepting provider PB Tolliver at ETA 1900 but request EKG due to patient's heart rate. EKG is ordered, conducted and faxed to [facility] for review, EKG also signed off by ED provider Dr. Fletcher. BAGGING SALVAGER to set up transportation for patient. Plan: Patient to transfer to [facility] for voluntary inpatient bed this evening. KENDALL Walters
[2021-10-06 18:12] VITALS: BP 136/79; PULSE 51; O2SAT 99
== END 2021-10-06 19:03 ==
PROVIDERS: Emergency Provider Emergency Medicine
DX: F25.0 Schizoaffective disorder, bipolar type (principal); F10.10 Alcohol abuse, uncomplicated; R55 Syncope and collapse; Z20.822 Contact with and (suspected) exposure to COVID-19
CPT/HCPCS: 36415; 70450; 71045; 80053; 80305; 80320; 80329; 81001; 82550; 82553; 83605; 83690; 83735; 83880; 84484; 85025; 87635; 96360; 96361; 99284; 99285; C9803; G0480

== ENCOUNTER 2021-11-11 05:07 | Emergency (ER) | payer MEDICARE, MEDICAID, SELFPAY ==
[2021-11-11 05:10] VITALS: BP 139/96; PULSE 68; RESP 17; TEMP 36.5; O2SAT 98; BMI 28.5
--- NOTE | 2021-11-11 09:12 | ED.ALCOHOL ---
HPI - Alcohol General Chief Complaint: Toxicology Problem Stated Complaint: detox Time Seen by Provider: 11/11/21 09:12 Source: patient Mode of arrival: Ambulatory History of Present Illness HPI narrative: Patient is a 46-year-old male history of alcohol abuse, bipolar presents last evening by police. Unclear exactly why. Patient slept in the waiting room for most of the night. Brought back awake and alert. He says he may have been causing too much ruckus. He says he had in over drink. He has no thoughts of harming himself or anyone else. He previously has been sent to rehab but does not seem interested in that today. Overall feeling better asking for breakfast. Related Data Home Medications Medication Instructions Recorded Confirmed hydroxyzine HCl 50 mg tablet 50 mg PO Q8HP PRN ##0 02/28/16 lisinopril 20 mg tablet 20 mg PO QDAY ##0 02/28/16 perphenazine 8 mg tablet 8 mg PO ##0 02/28/16 trazodone 150 mg tablet 150 mg PO QDAY ##0 02/28/16 Previous Rx's Medication Instructions Recorded olanzapine 10 mg tablet (Zyprexa) 10 mg PO DAILY #30 tabs 05/27/21 Allergies Allergy/AdvReac Type Severity Reaction Status Date / Time amoxicillin Allergy Verified 10/03/21 23:23 Review of Systems Review of Systems Narrative: GENERAL: Denies chills,fever HEENT: Denies throat pain RESPIRATORY: Denies dyspnea, cough, wheezing CARDIOVASCULAR: Denies chest pain, palpitations GASTROINTESTINAL: Denies nausea, vomiting MUSCULOSKELETAL: Denies extremity pain, injury SKIN: No rash, no laceration, no pruritus NEUROLOGIC: Denies weakness, dizziness, headache, numbness 8 point review of systems is negative except for those stated above and HPI Neurologic Neurologic: Denies behavioral changes Psychiatric Psychiatric: Reports as per HPI, Denies behavioral changes, Denies homicidal ideation and Denies suicidal ideation Patient History Medical History Alcohol abuse PTSD (post-traumatic stress disorder) Schizoaffective disorder, bipolar type Social History Smoking Status: Current every day smoker Smoking Status: Current every day smoker alcohol intake frequency: 3 or more drinks per day Alcohol type: beer and hard liquor Substance Use Type: marijuana Exam Initial Vital Signs Initial Vital Signs: Vital Signs Temperature 97.7 F 11/11/21 05:10 Pulse Rate 68 11/11/21 05:10 Respiratory Rate 17 11/11/21 05:10 Blood Pressure 139/96 H 11/11/21 05:10 Pulse Oximetry 98 11/11/21 05:10 Oxygen Delivery Method 11/11/21 05:10 GENERAL: Alert 46-year-old male, in room by himself talking CARDIOVASCULAR: peripheral pulses in tact, cap refill <2 sec RESPIRATORY: No respiratory distress, speaks in full sentences without difficulty EXTREMITIES: Normal range of motion, no clubbing or edema. Neurovascularly intact NEUROLOGICAL: Cranial nerves II through XII grossly intact. Normal gait and speech. SKIN: Small healing right knee abrasion Course Orders Ordered: ED Orders 11/11/21 05:16 Consult to OPTICIAN APPRENTICE - Health Service Coordinator Stat Vital Signs Vital signs: Vital Signs - 8 hr 11/11/21 05:10 Temperature 97.7 F Pulse Rate 68 Respiratory Rate 17 Blood Pressure 139/96 H Pulse Oximetry 98 Oxygen Delivery Method Room Air MDM - Alcohol MDM Narrative Medical decision making narrative: Patient is a frequent Flyer well known facility and myself. Awake and alert no thoughts of self-harm. Offered rehab however declines at this time. He is given breakfast. He is watching a show overall in no apparent distress. At this time there is no need for any further workup. There is no sign of trauma. Discharge Plan Departure Patient Disposition: Home Clinical Impression: Alcohol abuse Instructions: DI for Alcohol Use Disorder Activity Restrictions/Additional Instructions: *You have been diagnosed with alcohol abuse *What to do: Keep knee clean and dry *Continue to take medications as directed *Follow up with your primary care provider in 2-3 days or call [phone] *Return to ER if you should have any new, worsening or concerning symptoms Prescriptions: No Action lisinopril 20 MG tablet 20 mg PO QDAY Qty: 0 trazodone 150 MG tablet 150 mg PO QDAY Qty: 0 perphenazine 8 MG tablet 8 mg PO Qty: 0 hydroxyzine HCl 50 MG tablet 50 mg PO Q8HP PRNQty: 0 olanzapine [Zyprexa] 10 mg tablet 10 mg PO DAILY Qty: 30 0RF Referrals: Miscellaneous,Doctor, [Primary Care Provider] - Visit Report Forms: Patient Portal/API
--- NOTE | 2021-11-11 10:35 | PC.NURSE ---
pt has no complaints. he was moved to room [address] amin. pt provided breakfast, ate 100%.
== END 2021-11-11 10:38 | disposition home or self-care (01) ==
PROVIDERS: Emergency Provider Emergency Medicine
DX: F10.10 Alcohol abuse, uncomplicated (principal)
CPT/HCPCS: 99281

== ENCOUNTER 2021-11-11 19:38 | Emergency (ER) | payer MEDICARE, SELFPAY ==
[2021-11-11 19:45] VITALS: BP 130/87; PULSE 79; RESP 18; TEMP 36.2; O2SAT 100
[2021-11-11 19:55] VITALS: BP 130/87; PULSE 79; RESP 18; TEMP 36.2; O2SAT 100
[2021-11-11] MEDS: OLANZapine ODT 10 MG TAB PO (20:00)
[2021-11-11 20:23] LABS: Ur Creatinine Normal (Normal); Ur Specific Gravity Normal (Normal); Urine pH Normal (Normal)
[2021-11-11 20:24] LABS: UR Morphine/Opiate cutoff 300 Negative (Negative); Urine Amphetamines Negative (Negative); Urine Barbiturates Negative (Negative); Urine Benzodiazepines Negative (Negative); Urine Cocaine Negative (Negative); Urine MDMA Negative (Negative); Urine Methadone Negative (Negative); Urine Methamphetamines Negative (Negative); Urine Oxycodone Negative (Negative); Urine Phencyclidine Negative (Negative); Urine Tetrahydrocannabinol Negative (Negative); Urine Tricyclic Antidepressant Negative (Negative)
[2021-11-11 20:30] LABS: Add Manual Diff / Slide Review NO; Basophils Absolute Auto 100 /uL (0-100); Basophils Percent Auto 1.4 % (0-2); Eosinophils Absolute Auto 100 /uL (0-450); Eosinophils Percent Auto 1.7 % (2-4); Hematocrit 43.6 % (41-53); Hemoglobin 14.1 g/dL (13.5-17.5); Lymphocytes Absolute Auto 2500 /uL (1100-4500); Lymphocytes Percent Auto 44.7 % (25-40); Mean Corpuscular HGB Conc 32.4 % (30-36); Mean Corpuscular Hemoglobin 23.7 PG (26-34); Monocytes Absolute Auto 400 /uL (0-900); Monocytes Percent Auto 7.3 % (3-14); Neutrophils Absolute Auto 2500 /uL (1500-7000); Neutrophils Percent Auto 44.9 % (50-75); Platelet Count 317 X10^3/uL (150-400); Red Blood Cell Count 5.97 X10^6/uL (4.5-5.9); Red Cell Distribution Width 15.5 % (11.6-14.8); White Blood Cell Count 5.5 X10^3/uL (4.5-11.0)
--- NOTE | 2021-11-11 20:34 | PC.NURSE ---
Patient walked out of room, threw the door open stating wheres that white boy at, I'm going to F him up. Nurse was able to redirect patient back into room and got him comfortable on the bed.
[2021-11-11 20:40] LABS: Lactate (Lactic Acid) 1.2 mmol/L (0.7-2.1)
[2021-11-11 20:42] LABS: Acetaminophen < 10 ug/mL (10-30); Alanine Aminotransferase 40 IU/L (<50); Albumin 4.6 g/dL (3.5-5.0); Albumin Globulin Ratio 1.2 (1.0-2.8); Alkaline Phosphatase 59 U/L (38-126); Aspartate Aminotransferase 49 IU/L (17-59); BUN Creatinine Ratio 16.7 (6-22); Bilirubin Total 0.6 mg/dL (0.2-1.3); Bilirubin Unconjugated 0.6 mg/dL (0.0-1.1); Blood Urea Nitrogen 19 mg/dL (9-20); Calcium 9.1 mg/dL (8.4-10.2); Carbon Dioxide 31 mmol/L (22-32); Chloride 99 mmol/L (98-107); Estimated Glomerular Filt Rate > 60 mL/min (>60); Ethanol (ETOH) 266 mg/dL; Glucose 96 mg/dL (70-100); HEMOLYSIS < 15 (0-50); Salicylate < 1.0 mg/dL (<20); Sodium 141 mmol/L (137-145); Total Protein 8.6 g/dL (6.3-8.2)
[2021-11-11 22:12] VITALS: RESP 16
--- NOTE | 2021-11-12 02:43 | ED_ITS ---
HPI - Psych General Chief Complaint: Psychiatric Symptoms Stated Complaint: GISSELLE Time Seen by Provider: 11/11/21 19:39 Source: patient Mode of arrival: Ambulatory History of Present Illness HPI Narrative: 46-year-old male occasional smoker with history of hypertension, bipolar and alcohol abuse returns by EMS and police. He'd been in an argument with another person down at the [place] and was belligerent, stumbling and slurring, admitted to drinking much of the day. He had been seen and evaluated earlier today. He denies any suicidal or homicidal ideation. He has no complaints, he is yelling and a bit animated in the department but eventually D escalates and ask for some medication to take the edge off. He denies any headache or neck pain. Denies any chest pain or shortness of breath Related Data Home Medications Medication Instructions Recorded Confirmed hydroxyzine HCl 50 mg tablet 50 mg PO Q8HP PRN ##0 02/28/16 lisinopril 20 mg tablet 20 mg PO QDAY ##0 02/28/16 perphenazine 8 mg tablet 8 mg PO ##0 02/28/16 trazodone 150 mg tablet 150 mg PO QDAY ##0 02/28/16 Previous Rx's Medication Instructions Recorded olanzapine 10 mg tablet (Zyprexa) 10 mg PO DAILY #30 tabs 05/27/21 Allergies Allergy/AdvReac Type Severity Reaction Status Date / Time amoxicillin Allergy Verified 10/03/21 23:23 Review of Systems Review of Systems Narrative: GENERAL: Denies chills, fatigue, malaise, fever, sweats. HEENT: Denies sinus pain, ear pain, sore throat, difficulty swallowing, dizziness. RESPIRATORY: Denies dyspnea, cough, wheezing, hemoptysis, sputum. CARDIOVASCULAR: Denies chest pain, palpitations, orthopnea, edema, GASTROINTESTINAL: Denies nausea, vomiting, abdominal pain, diarrhea, constipation, melena. : Denies dysuria, frequency, incontinence, hematuria, urinary retention. MUSCULOSKELETAL: denies weakness, joint pain, or bony pain SKIN: Denies rash, skin lesions, or other NEUROLOGIC: Denies weakness, headache, numbness, change in speech, confusion, seizures, incoordination. PSYCHIATRIC: No concerning psychosocial issues. 12 point review of systems is negative except for those stated above Patient History Medical History Alcohol abuse PTSD (post-traumatic stress disorder) Schizoaffective disorder, bipolar type Social History Smoking Status: Current every day smoker Smoking Status: Current every day smoker alcohol intake frequency: 3 or more drinks per day Alcohol type: beer and hard liquor Substance Use Type: marijuana Exam Narrative Exam Narrative: GENERAL: [46] year old patient appears stated age. He is a bit agitated and animated, yelling and slurring a bit but walking a straight line HEAD: Atraumatic. Normocephalic. EYES: Pupils equal round and reactive. Extraocular motions intact. No scleral icterus. No injection or drainage. ENT: Nose without bleeding, purulent drainage. Throat without erythema, tonsillar hypertrophy or exudate. Airway patent. NECK: Trachea midline. Non tender CARDIOVASCULAR: Regular rate and rhythm without murmurs, gallops, or rubs. RESPIRATORY: Clear to auscultation. Breath sounds equal bilaterally. No wheezes, rales, or rhonchi. GASTROINTESTINAL: Abdomen soft, non-tender, nondistended. EXTREMITIES: No edema or joint tenderness. BACK: Nontender without deformity or crepitance. No flank tenderness. NEURO: Cranial nerves 2-12 grossly intact SKIN: No rash or erythema of visible areas Initial Vital Signs Initial Vital Signs: Vital Signs Temperature 97.2 F L 11/11/21 19:45 Pulse Rate 79 11/11/21 19:45 Respiratory Rate 18 11/11/21 19:45 Blood Pressure 130/87 11/11/21 19:45 Pulse Oximetry 100 11/11/21 19:45 Oxygen Delivery Method 11/11/21 19:45 Course Orders Ordered: Discontinued Medications Olanzapine (Olanzapine Odt 10 Mg Tab) 10 mg PO NOW ONE Stop: 11/11/21 19:51 Last Admin: 11/11/21 20:00 Dose: 10 mg Documented By: SUSAN Vital Signs Vital signs: Vital Signs - 8 hr 11/11/21 19:45 11/11/21 19:55 11/11/21 22:12 Temperature 97.2 F L 97.2 F L Pulse Rate 79 79 Respiratory Rate 18 18 16 Blood Pressure 130/87 130/87 Pulse Oximetry 100 100 Oxygen Delivery Method Room Air MDM - Psych Lab Data Result diagrams: 11/11/21 20:20 11/11/21 20:20 Labs: Lab Results 11/11/21 11/11/21 11/11/21 Range/Units 18:54 20:20 20:20 WBC 5.5 (4.5-11.0) X10^3/uL RBC 5.97 H (4.5-5.9) X10^6/uL Hgb 14.1 (13.5-17.5) g/dL Hct 43.6 (41-53) % MCV 73.0 L (80-100) fL MCH 23.7 L (26-34) PG MCHC 32.4 (30-36) % RDW 15.5 H (11.6-14.8) % Plt Count 317 (150-400) X10^3/uL Neut % (Auto) 44.9 L (50-75) % Lymph % (Auto) 44.7 H (25-40) % [place] % (Auto) 7.3 (3-14) % Eos % (Auto) 1.7 L (2-4) % Baso % (Auto) 1.4 (0-2) % Neut # (Auto) 2500 (3702-3902) /uL Lymph # (Auto) 2500 (2635-4974) /uL [place] # (Auto) 400 (0-900) /uL Eos # (Auto) 100 (0-450) /uL Baso # (Auto) 100 (0-100) /uL Sodium 141 (137-145) mmol/L Potassium 5.0 (3.4-5.1) mmol/L Chloride 99 (98-107) mmol/L Carbon Dioxide 31 (22-32) mmol/L BUN 19 (9-20) mg/dL Creatinine 1.14 (0.66-1.25) mg/dL Estimated GFR > 60 (>60) mL/min BUN/Creatinine Ratio 16.7 (6-22) Glucose 96 (70-100) mg/dL Lactate (0.7-2.1) mmol/L Calcium 9.1 (8.4-10.2) mg/dL Total Bilirubin 0.6 (0.2-1.3) mg/dL Conjugated Bilirubin 0.0 (0.0-0.3) md/dL Unconjugated Bilirubin 0.6 (0.0-1.1) mg/dL AST 49 (17-59) IU/L ALT 40 (<50) IU/L Alkaline Phosphatase 59 (38-126) U/L Total Protein 8.6 H (6.3-8.2) g/dL Albumin 4.6 (3.5-5.0) g/dL Globulin 4.0 (1.7-4.1) g/dL Albumin/Globulin Ratio 1.2 (1.0-2.8) Salicylates < 1.0 (<20) mg/dL U Opiates 300ng/mL cut Negative (Negative) Ur Oxycodone Screen Negative (Negative) Urine Methadone Screen Negative (Negative) Acetaminophen < 10 (10-30) ug/mL Ur Barbiturates Screen Negative (Negative) U Tricyclic Antidepress Negative (Negative) Ur Phencyclidine Scrn Negative (Negative) Ur Amphetamines Screen Negative (Negative) U Methamphetamines Scrn Negative (Negative) Ur MDMA Scrn (Ecstasy) Negative (Negative) U Benzodiazepines Scrn Negative (Negative) Urine Cocaine Screen Negative (Negative) U Marijuana (THC) Screen Negative (Negative) Ethyl Alcohol 266 H ( - 10) mg/dL 11/11/21 Range/Units 20:20 WBC (4.5-11.0) X10^3/uL RBC (4.5-5.9) X10^6/uL Hgb (13.5-17.5) g/dL Hct (41-53) % MCV (80-100) fL MCH (26-34) PG MCHC (30-36) % RDW (11.6-14.8) % Plt Count (150-400) X10^3/uL Neut % (Auto) (50-75) % Lymph % (Auto) (25-40) % [place] % (Auto) (3-14) % Eos % (Auto) (2-4) % Baso % (Auto) (0-2) % Neut # (Auto) (2066-9781) /uL Lymph # (Auto) (0893-7551) /uL [place] # (Auto) (0-900) /uL Eos # (Auto) (0-450) /uL Baso # (Auto) (0-100) /uL Sodium (137-145) mmol/L Potassium (3.4-5.1) mmol/L Chloride (98-107) mmol/L Carbon Dioxide (22-32) mmol/L BUN (9-20) mg/dL Creatinine (0.66-1.25) mg/dL Estimated GFR (>60) mL/min BUN/Creatinine Ratio (6-22) Glucose (70-100) mg/dL Lactate 1.2 (0.7-2.1) mmol/L Calcium (8.4-10.2) mg/dL Total Bilirubin (0.2-1.3) mg/dL Conjugated Bilirubin (0.0-0.3) md/dL Unconjugated Bilirubin (0.0-1.1) mg/dL AST (17-59) IU/L ALT (<50) IU/L Alkaline Phosphatase (38-126) U/L Total Protein (6.3-8.2) g/dL Albumin (3.5-5.0) g/dL Globulin (1.7-4.1) g/dL Albumin/Globulin Ratio (1.0-2.8) Salicylates (<20) mg/dL U Opiates 300ng/mL cut (Negative) Ur Oxycodone Screen (Negative) Urine Methadone Screen (Negative) Acetaminophen (10-30) ug/mL Ur Barbiturates Screen (Negative) U Tricyclic Antidepress (Negative) Ur Phencyclidine Scrn (Negative) Ur Amphetamines Screen (Negative) U Methamphetamines Scrn (Negative) Ur MDMA Scrn (Ecstasy) (Negative) U Benzodiazepines Scrn (Negative) Urine Cocaine Screen (Negative) U Marijuana (THC) Screen (Negative) Ethyl Alcohol ( - 10) mg/dL Urine Dip Bedside Urine Glucose Negative Bedside Urine Bilirubin - Negative Bedside Urine Ketone - Negative Urine Specific [place] 1.000 Bedside Urine Occult Blood - Negative Bedside Urine pH 5.5 Bedside Urine Protein - Negative Bedside Urine Urobilinogen - Negative Bedside Urine Nitrite - Negative Bedside Urine Leukocytes - Negative Esterase Discharge Plan Departure Patient Disposition: Home Clinical Impression: Alcohol abuse Instructions: Alcohol Use Disorder Activity Restrictions/Additional Instructions: There is no evidence of an emergent or life threatening illness at this time, but follow up with your doctor in 1-2 days is recommended nonetheless to continue to rule out serious underlying causes of your symptoms. Please call the office for an appointment. Please return to the Emergency Department for any worsening or persistent symptoms. Please take medications as directed. Prescriptions: No Action lisinopril 20 MG tablet 20 mg PO QDAY Qty: 0 trazodone 150 MG tablet 150 mg PO QDAY Qty: 0 perphenazine 8 MG tablet 8 mg PO Qty: 0 hydroxyzine HCl 50 MG tablet 50 mg PO Q8HP PRNQty: 0 olanzapine [Zyprexa] 10 mg tablet 10 mg PO DAILY Qty: 30 0RF Referrals: Miscellaneous,Doctor, MD [Primary Care Provider] - Visit Report Forms: Patient Portal/API
== END 2021-11-12 08:16 | disposition home or self-care (01) ==
PROVIDERS: Emergency Provider Emergency Medicine
DX: F10.10 Alcohol abuse, uncomplicated (principal)
CPT/HCPCS: 36415; 80053; 80076; 80305; 80320; 80329; 81003; 83605; 85025; 99281; 99283; G0480

== ENCOUNTER 2021-11-15 00:52 | Emergency (ER) | payer MEDICARE, MEDICAID, SELFPAY ==
--- NOTE | 2021-11-15 01:03 | ED_ITS ---
HPI - General Adult <Migel Garcia DO - Last Filed: 11/15/21 17:59> General Chief complaint: Toxicology Problem Stated complaint: ETOH Time Seen by Provider: 11/15/21 01:03 Source: EMS and police Mode of arrival: EMS Limitations: other (Intoxication) History of Present Illness HPI narrative: Patient is a 46-year-old male who is well known to this emergency department. He has been here 2 times recently. This evening the police were called because the patient was lying in the road and walking into traffic. He is obviously intoxicated. He is disheveled. There is no signs of trauma. He was somewhat combative by EMS however did not receive any sedative medications. Patient is unable to provide any HPI or review of systems. Related Data Home Medications Medication Instructions Recorded Confirmed hydroxyzine HCl 50 mg tablet 50 mg PO Q8HP PRN ##0 02/28/16 lisinopril 20 mg tablet 20 mg PO QDAY ##0 02/28/16 perphenazine 8 mg tablet 8 mg PO ##0 02/28/16 trazodone 150 mg tablet 150 mg PO QDAY ##0 02/28/16 Previous Rx's Medication Instructions Recorded olanzapine 10 mg tablet (Zyprexa) 10 mg PO DAILY #30 tabs 05/27/21 Allergies Allergy/AdvReac Type Severity Reaction Status Date / Time amoxicillin Allergy Verified 10/03/21 23:23 Review of Systems <Migel Garcia DO - Last Filed: 11/15/21 17:59> Review of Systems ROS Unobtainable: Unobtainable due to mental condition Patient History <DO Cordelia Jimenes Last Filed: 11/15/21 17:59> Medical History Alcohol abuse PTSD (post-traumatic stress disorder) Schizoaffective disorder, bipolar type Social History Smoking Status: Current every day smoker Smoking Status: Current every day smoker alcohol intake frequency: 3 or more drinks per day Alcohol type: beer and hard liquor Substance Use Type: marijuana Exam <DO Cordelia Jimenes Last Filed: 11/15/21 17:59> Const General: disheveled HENMT Head: normal to inspection Resp Effort & Inspection: normal respiratory effort Auscultation: clear to auscultation bilaterally Cardio Rate: regular rate Rhythm: regular rhythm Neuro Other: Patient is not cooperative although he does move all 4 extremities. Extrem Other: No gross deformities Psych Other: Disheveled Medical Decision Making <Migel Garcia DO - Last Filed: 11/15/21 17:59> [facility] Narrative Medical decision making narrative: Upon the patient was disheveled and only minimally cooperative. He would not answer any questions. There is no signs of any trauma. Patient quickly fell asleep after arrival and has been calm overnight. Has not been given any sedative medications. He is clearly intoxicated and does smell of alcohol. Will continue to observe overnight until patient becomes clinically sober and then disposition accordingly. Care turned over to date provider. <Anny Chacon MD - Last Filed: 11/15/21 19:09> [facility] Narrative Medical decision making narrative: Upon the patient was disheveled and only minimally cooperative. He would not answer any questions. There is no signs of any trauma. Patient quickly fell asleep after arrival and has been calm overnight. Has not been given any sedative medications. He is clearly intoxicated and does smell of alcohol. Will continue to observe overnight until patient becomes clinically sober and then disposition accordingly. Care turned over to date provider. 1120am patient awakes this morning and states that ?I am very drunk?. He clearly had a blackout episode last night was apprised wake up in the emergency department. Is requesting food has no specific medical complaints. At this point he has sobered to at least his baseline and is free to go home. He is given lunch. Discharge Plan Departure Patient Disposition: Home Clinical Impression: Alcoholic intoxication Instructions: DI for Alcohol Use Disorder Activity Restrictions/Additional Instructions: You were found significantly intoxicated last night and walking in the middle of the street. Police brought you to the emergency room concern for safety. You slept all night. Aside from intoxication there appears to be no acute medical issue. If at some point you decide you want help with your alcohol use disorder we can certainly do that. Prescriptions: No Action lisinopril 20 MG tablet 20 mg PO QDAY Qty: 0 trazodone 150 MG tablet 150 mg PO QDAY Qty: 0 perphenazine 8 MG tablet 8 mg PO Qty: 0 hydroxyzine HCl 50 MG tablet 50 mg PO Q8HP PRNQty: 0 olanzapine [Zyprexa] 10 mg tablet 10 mg PO DAILY Qty: 30 0RF Referrals: Miscellaneous,Doctor, MD [Primary Care Provider] - Visit Report Forms: Patient Portal/API
== END 2021-11-15 11:45 | disposition home or self-care (01) ==
PROVIDERS: Emergency Provider Emergency Medicine
DX: F10.129 Alcohol abuse with intoxication, unspecified (principal)
CPT/HCPCS: 99282

== ENCOUNTER 2022-01-16 15:56 | Emergency (ER) | payer MEDICARE, SELFPAY ==
[2022-01-16 15:57] VITALS: BP 117/75; PULSE 78; RESP 15; TEMP 36.5; O2SAT 100
--- NOTE | 2022-01-16 16:59 | PC.NURSE ---
pt brought in by EMS, found unconscious with empty bottle of alcohol next to him. known hx of alcohol use. pt sleeping currently
[2022-01-16 17:00] VITALS: RESP 16
[2022-01-16 17:47] VITALS: RESP 20
--- NOTE | 2022-01-16 18:02 | DI.CT.S_ITS ---
PROCEDURE: CT HEAD/BRAIN WO CON INDICATIONS: etoh found down TECHNIQUE: Noncontrast 4.5 mm thick angled axial sections acquired from the foramen magnum to the vertex, with coronal and sagittal reformats. For radiation dose reduction, the following was used: automated exposure control, adjustment of mA and/or kV according to patient size. COMPARISON: [facility], CT, CT HEAD/BRAIN WO CON, 10/05/2021, 14:38. FINDINGS: Image quality: Excellent. CSF spaces: Basal cisterns are patent. No extra-axial fluid collections. Ventricles are normal in size and shape. Brain: No midline shift. No intracranial masses or hemorrhage. Pavon-white matter interface is normal. Skull and face: Calvarium and visualized facial bones are intact, without suspicious lesions. Sinuses: Visualized sinuses and mastoids are clear. IMPRESSION: No acute intracranial abnormality. Approved by: Earl Phillip M.D. on 01/16/2022 at 18:48
--- NOTE | 2022-01-16 18:47 | ED.ALCOHOL ---
HPI - Alcohol General Chief Complaint: Toxicology Problem Stated Complaint: Intoxicated Time Seen by Provider: 01/16/22 17:46 Source: EMS Mode of arrival: EMS History of Present Illness HPI narrative: Patient is a 46-year-old male history of alcohol abuse, hypertension, bipolar comes to the ED today found down outside. It is quite cold out. He is minimally responsive no sign of trauma. Not able to provide history. He moans minimal movement. Related Data Home Medications Medication Instructions Recorded Confirmed hydroxyzine HCl 50 mg tablet 50 mg PO Q8HP PRN ##0 02/28/16 lisinopril 20 mg tablet 20 mg PO QDAY ##0 02/28/16 perphenazine 8 mg tablet 8 mg PO ##0 02/28/16 trazodone 150 mg tablet 150 mg PO QDAY ##0 02/28/16 Previous Rx's Medication Instructions Recorded olanzapine 10 mg tablet (Zyprexa) 10 mg PO DAILY #30 tabs 05/27/21 Allergies Allergy/AdvReac Type Severity Reaction Status Date / Time amoxicillin Allergy Verified 01/16/22 16:00 Review of Systems Review of Systems ROS Unobtainable: Unobtainable due to medical condition Patient History Medical History Alcohol abuse PTSD (post-traumatic stress disorder) Schizoaffective disorder, bipolar type Social History Smoking Status: Current every day smoker Smoking Status: Current every day smoker alcohol intake frequency: 3 or more drinks per day Alcohol type: beer and hard liquor Substance Use Type: marijuana Exam Initial Vital Signs Initial Vital Signs: Vital Signs Temperature 97.7 F 01/16/22 15:57 Pulse Rate 78 01/16/22 15:57 Respiratory Rate 15 01/16/22 15:57 Blood Pressure 117/75 01/16/22 15:57 Pulse Oximetry 100 01/16/22 15:57 Oxygen Delivery Method 01/16/22 15:57 Gen.: Patient sleeping responds to painful stimuli HEENT: No head trauma Neck: No JVD Lungs: Clear bilaterally no respiratory distress Cardiac: Regular rate no murmurs Abdomen: Soft nontender Extremities: No gross bony deformity Neurologic: Response to painful stimuli only Scores GCS [place] coma scale eye opening: None Primitivo coma scale verbal response: Sounds [place] coma scale motor response: Localising Primitivo coma scale total score: 8 Course Orders Ordered: ED Orders 01/16/22 19:30 CBC Auto Diff [Complete Blood Count AUTO DIFF] Stat CMP [Comprehensive Metabolic Panel] Stat ETOH [Ethanol (ETOH)] Stat Lipase Stat TSH [Thyroid Stimulating Hormone] Stat Urine Drug Screen, Rapid Stat Urine Microscopic Stat Vital Signs Vital signs: Vital Signs - 8 hr 01/16/22 19:24 Temperature 97.2 F L Pulse Rate 61 Respiratory Rate 16 Blood Pressure 107/70 Pulse Oximetry 98 Oxygen Delivery Method Room Air MDM - Alcohol Lab Data Result diagrams: 01/16/22 19:30 01/16/22 19:30 Labs: Lab Results 01/16/22 01/16/22 01/16/22 Range/Units 19:30 19:30 19:30 WBC 4.7 (4.5-11.0) X10^3/uL RBC 5.40 (4.5-5.9) X10^6/uL Hgb 12.5 L (13.5-17.5) g/dL Hct 38.6 L (41-53) % MCV 71.5 L (80-100) fL MCH 23.1 L (26-34) PG MCHC 32.3 (30-36) % RDW 14.8 (11.6-14.8) % Plt Count 309 (150-400) X10^3/uL Neut % (Auto) 57.7 (50-75) % Lymph % (Auto) 35.8 (25-40) % [place] % (Auto) 5.0 (3-14) % Eos % (Auto) 0.7 L (2-4) % Baso % (Auto) 0.8 (0-2) % Neut # (Auto) 2700 (2152-0992) /uL Lymph # (Auto) 1700 (9156-5831) /uL [place] # (Auto) 200 (0-900) /uL Eos # (Auto) 0 (0-450) /uL Baso # (Auto) 0 (0-100) /uL Sodium 145 (137-145) mmol/L Potassium 4.5 (3.4-5.1) mmol/L Chloride 107 (98-107) mmol/L Carbon Dioxide 30 (22-32) mmol/L BUN 10 (9-20) mg/dL Creatinine 0.84 (0.66-1.25) mg/dL Estimated GFR > 60 (>60) mL/min BUN/Creatinine Ratio 11.9 (6-22) Glucose 105 H (70-100) mg/dL Calcium 8.8 (8.4-10.2) mg/dL Total Bilirubin 0.8 (0.2-1.3) mg/dL AST 32 (17-59) IU/L ALT 25 (<50) IU/L Alkaline Phosphatase 47 (38-126) U/L Total Protein 8.0 (6.3-8.2) g/dL Albumin 4.6 (3.5-5.0) g/dL Globulin 3.4 (1.7-4.1) g/dL Albumin/Globulin Ratio 1.4 (1.0-2.8) Lipase 62 (23-300) U/L TSH 0.587 (0.47-4.68) uIU/mL Urine RBC (0-5/HPF) Urine WBC (0-5/HPF) Ur Squamous Epith Cells (0-5/HPF) Urine Bacteria (None) Ur Culture Indicated? U Opiates 300ng/mL cut (Negative) Ur Oxycodone Screen (Negative) Urine Methadone Screen (Negative) Ur Barbiturates Screen (Negative) U Tricyclic Antidepress (Negative) Ur Phencyclidine Scrn (Negative) Ur Amphetamines Screen (Negative) U Methamphetamines Scrn (Negative) Ur MDMA Scrn (Ecstasy) (Negative) U Benzodiazepines Scrn (Negative) Urine Cocaine Screen (Negative) U Marijuana (THC) Screen (Negative) Ethyl Alcohol 249 H ( - 10) mg/dL 01/16/22 01/16/22 Range/Units 19:30 19:30 WBC (4.5-11.0) X10^3/uL RBC (4.5-5.9) X10^6/uL Hgb (13.5-17.5) g/dL Hct (41-53) % MCV (80-100) fL MCH (26-34) PG MCHC (30-36) % RDW (11.6-14.8) % Plt Count (150-400) X10^3/uL Neut % (Auto) (50-75) % Lymph % (Auto) (25-40) % [place] % (Auto) (3-14) % Eos % (Auto) (2-4) % Baso % (Auto) (0-2) % Neut # (Auto) (7489-7550) /uL Lymph # (Auto) (4457-9257) /uL [place] # (Auto) (0-900) /uL Eos # (Auto) (0-450) /uL Baso # (Auto) (0-100) /uL Sodium (137-145) mmol/L Potassium (3.4-5.1) mmol/L Chloride (98-107) mmol/L Carbon Dioxide (22-32) mmol/L BUN (9-20) mg/dL Creatinine (0.66-1.25) mg/dL Estimated GFR (>60) mL/min BUN/Creatinine Ratio (6-22) Glucose (70-100) mg/dL Calcium (8.4-10.2) mg/dL Total Bilirubin (0.2-1.3) mg/dL AST (17-59) IU/L ALT (<50) IU/L Alkaline Phosphatase (38-126) U/L Total Protein (6.3-8.2) g/dL Albumin (3.5-5.0) g/dL Globulin (1.7-4.1) g/dL Albumin/Globulin Ratio (1.0-2.8) Lipase (23-300) U/L TSH (0.47-4.68) uIU/mL Urine RBC None seen (0-5/HPF) Urine WBC 0-1/hpf (0-5/HPF) Ur Squamous Epith Cells 0-1 /hpf (0-5/HPF) Urine Bacteria None seen (None) Ur Culture Indicated? Cult not indicated U Opiates 300ng/mL cut Negative (Negative) Ur Oxycodone Screen Negative (Negative) Urine Methadone Screen Negative (Negative) Ur Barbiturates Screen Negative (Negative) U Tricyclic Antidepress Negative (Negative) Ur Phencyclidine Scrn Negative (Negative) Ur Amphetamines Screen Negative (Negative) U Methamphetamines Scrn Negative (Negative) Ur MDMA Scrn (Ecstasy) Negative (Negative) U Benzodiazepines Scrn Negative (Negative) Urine Cocaine Screen Negative (Negative) U Marijuana (THC) Screen Negative (Negative) Ethyl Alcohol ( - 10) mg/dL Imaging Data CT scan - head: Radiologist's Impressoin: Patient: Stefan Thurman MR#: [id number] : 1975 Acct:[id number] Age/Sex: 46 / M Date of Service: 01/16/22 Loc: ED Accession Number: [id number] ?? Procedure: CT head/brain wo con Ordering Provider: Opal Desai D.O. PROCEDURE:? CT HEAD/BRAIN WO CON ? INDICATIONS:? etoh found down ? TECHNIQUE:? Noncontrast 4.5 mm thick angled axial sections acquired from the foramen magnum to the vertex, with coronal and sagittal reformats.? For radiation dose reduction, the following was used:? automated exposure control, adjustment of mA and/or kV according to patient size.? ? COMPARISON:? [facility], CT, CT HEAD/BRAIN WO CON, 10/05/2021, 14:38. ? FINDINGS:? Image quality:? Excellent.? ? CSF spaces:? Basal cisterns are patent.? No extra-axial fluid collections.? Ventricles are normal in size and shape.? ? Brain:? No midline shift.? No intracranial masses or hemorrhage.? Pavon-white matter interface is normal.? ? Skull and face:? Calvarium and visualized facial bones are intact, without suspicious lesions.? ? Sinuses:? Visualized sinuses and mastoids are clear.? ? IMPRESSION:? No acute intracranial abnormality. ? ? ? Approved by: Earl Phillip M.D. on 01/16/2022 at 18:48? [facility] Narrative Medical decision making narrative: 2000-patient is now awake alert able to stand up and put on his pants without any assistance. He is a known alcoholic well known to this facility. Head CT is negative. He is going to go to a hotel. We are currently calling him a taxi cab. He denies any suicidal or homicidal ideations. Blood work which is drawn and is pending. However he is clinically sober. Blood work is back overall reassuring should have an alcohol level 249. Discharge Plan Departure Patient Disposition: Home Clinical Impression: Alcohol intoxication Instructions: DI for Alcohol Use Disorder Activity Restrictions/Additional Instructions: Please go directly to hotel *You have been diagnosed with alcohol intoxication *What to do: *Continue to take medications as directed *Follow up with your primary care provider in 2-3 days or call [phone] *Return to ER if you should have any new, worsening or concerning symptoms Prescriptions: No Action lisinopril 20 MG tablet 20 mg PO QDAY Qty: 0 trazodone 150 MG tablet 150 mg PO QDAY Qty: 0 perphenazine 8 MG tablet 8 mg PO Qty: 0 hydroxyzine HCl 50 MG tablet 50 mg PO Q8HP PRNQty: 0 olanzapine [Zyprexa] 10 mg tablet 10 mg PO DAILY Qty: 30 0RF Referrals: Miscellaneous,Doctor, MD [Primary Care Provider] - Visit Report Forms: Patient Portal/API
[2022-01-16 19:24] VITALS: BP 107/70; PULSE 61; RESP 16; TEMP 36.2; O2SAT 98
[2022-01-16 20:37] LABS: Add Manual Diff / Slide Review NO; Basophils Absolute Auto 0 /uL (0-100); Basophils Percent Auto 0.8 % (0-2); Eosinophils Absolute Auto 0 /uL (0-450); Eosinophils Percent Auto 0.7 % (2-4); Hematocrit 38.6 % (41-53); Hemoglobin 12.5 g/dL (13.5-17.5); Lymphocytes Absolute Auto 1700 /uL (1100-4500); Lymphocytes Percent Auto 35.8 % (25-40); Mean Corpuscular HGB Conc 32.3 % (30-36); Mean Corpuscular Hemoglobin 23.1 PG (26-34); Mean Corpuscular Volume 71.5 fL (80-100); Monocytes Absolute Auto 200 /uL (0-900); Neutrophils Absolute Auto 2700 /uL (1500-7000); Neutrophils Percent Auto 57.7 % (50-75); Platelet Count 309 X10^3/uL (150-400); Red Cell Distribution Width 14.8 % (11.6-14.8); White Blood Cell Count 4.7 X10^3/uL (4.5-11.0)
[2022-01-16 20:45] LABS: Ur Creatinine Normal (Normal); Ur Specific Gravity Normal (Normal); Urine pH Normal (Normal)
[2022-01-16 20:46] LABS: Alanine Aminotransferase 25 IU/L (<50); Albumin 4.6 g/dL (3.5-5.0); Albumin Globulin Ratio 1.4 (1.0-2.8); Alkaline Phosphatase 47 U/L (38-126); Aspartate Aminotransferase 32 IU/L (17-59); BUN Creatinine Ratio 11.9 (6-22); Bilirubin Total 0.8 mg/dL (0.2-1.3); Blood Urea Nitrogen 10 mg/dL (9-20); Calcium 8.8 mg/dL (8.4-10.2); Carbon Dioxide 30 mmol/L (22-32); Chloride 107 mmol/L (98-107); Estimated Glomerular Filt Rate > 60 mL/min (>60); Globulin 3.4 g/dL (1.7-4.1); Glucose 105 mg/dL (70-100); HEMOLYSIS < 15 (0-50); Lipase 62 U/L (23-300); Potassium 4.5 mmol/L (3.4-5.1); Sodium 145 mmol/L (137-145); UR Morphine/Opiate cutoff 300 Negative (Negative); Urine Amphetamines Negative (Negative); Urine Barbiturates Negative (Negative); Urine Benzodiazepines Negative (Negative); Urine Cocaine Negative (Negative); Urine MDMA Negative (Negative); Urine Methadone Negative (Negative); Urine Methamphetamines Negative (Negative); Urine Oxycodone Negative (Negative); Urine Phencyclidine Negative (Negative); Urine Tetrahydrocannabinol Negative (Negative); Urine Tricyclic Antidepressant Negative (Negative)
[2022-01-16 20:47] LABS: Bacteria Urine None Seen; Culture Indicated Urine Cult Not Indicated; RBC Urine None Seen (0-5/HPF); Squamous Epithelial Cell Urine 0-1 /HPF (0-5/HPF); WBC Urine 0-1/HPF (0-5/HPF)
[2022-01-16 20:58] LABS: Ethanol (ETOH) 249 mg/dL
[2022-01-16 21:17] LABS: Thyroid Stimulating Hormone 0.587 uIU/mL (0.47-4.68)
== END 2022-01-16 20:00 | disposition home or self-care (01) ==
PROVIDERS: Emergency Provider Emergency Medicine
DX: F10.129 Alcohol abuse with intoxication, unspecified (principal); Y90.8 Blood alcohol level of 240 mg/100 ml or more
CPT/HCPCS: 70450; 80053; 80305; 80320; 81015; 83690; 84443; 85025; 99283; 99284

== ENCOUNTER 2022-01-25 13:50 | Emergency (ER) | payer MEDICARE, OTHER, SELFPAY ==
[2022-01-25] VITALS (12 sets, daily range): BP systolic 111–124; BP diastolic 70–86; PULSE 57–95; RESP 20; TEMP 36.6; O2SAT 96–99
--- NOTE | 2022-01-25 14:07 | ED_ITS ---
HPI - General Adult General Chief complaint: Toxicology Problem Stated complaint: ETOH Time Seen by Provider: 01/25/22 14:04 Source: EMS Mode of arrival: EMS Limitations: other (Alcohol intoxication) History of Present Illness HPI narrative: Patient is a 46-year-old male who is brought in by EMS after EMS was called by police for the patient being intoxicated. Per report the patient flagged down a another individual to have them call 911. The patient is unable to provide much HPI other than saying that he did drink alcohol and that he was not in any pain and that he did not fall and did not hit his head. Related Data Home Medications Medication Instructions Recorded Confirmed hydroxyzine HCl 50 mg tablet 50 mg PO Q8HP PRN ##0 02/28/16 lisinopril 20 mg tablet 20 mg PO QDAY ##0 02/28/16 perphenazine 8 mg tablet 8 mg PO ##0 02/28/16 trazodone 150 mg tablet 150 mg PO QDAY ##0 02/28/16 Previous Rx's Medication Instructions Recorded olanzapine 10 mg tablet (Zyprexa) 10 mg PO DAILY #30 tabs 05/27/21 Allergies Allergy/AdvReac Type Severity Reaction Status Date / Time amoxicillin Allergy Verified 01/16/22 16:00 Review of Systems Review of Systems ROS Unobtainable: Unobtainable due to medical condition Patient History Medical History Alcohol abuse PTSD (post-traumatic stress disorder) Schizoaffective disorder, bipolar type Social History Smoking Status: Current every day smoker Smoking Status: Current every day smoker alcohol intake frequency: 3 or more drinks per day Alcohol type: beer and hard liquor Substance Use Type: marijuana Exam Initial Vital Signs Initial Vital Signs: Vital Signs Temperature 97.9 F 01/25/22 13:58 Pulse Rate 95 H 01/25/22 13:58 Respiratory Rate 20 01/25/22 13:58 Blood Pressure 120/72 01/25/22 13:58 Pulse Oximetry 99 01/25/22 13:58 Oxygen Delivery Method 01/25/22 13:58 Const General: No ill appearing HENMT Head: normal to inspection and normocephalic Resp Effort & Inspection: normal respiratory effort Auscultation: clear to auscultation bilaterally Cardio Rate: regular rate Rhythm: regular rhythm Skin General: no rashes or lesions noted Neuro General: patient alert, patient awake and moves all extremities Extrem General: normal to inspection and capillary refill normal Course Orders Ordered: ED Orders 01/25/22 14:06 Consult to SUSTAINABILITY CONSULTANT - Dye Line Operator Stat Vital Signs Vital signs: Vital Signs - 8 hr 01/25/22 13:58 01/25/22 14:12 01/25/22 14:30 Temperature 97.9 F Pulse Rate 95 H 57 L 64 Respiratory Rate 20 Blood Pressure 120/72 Pulse Oximetry 99 97 97 Oxygen Delivery Method Room Air Room Air 01/25/22 14:54 01/25/22 14:54 01/25/22 15:00 Temperature Pulse Rate 69 70 Respiratory Rate Blood Pressure 111/70 Pulse Oximetry 98 98 Oxygen Delivery Method Room Air Medical Decision Making MDM Narrative Medical decision making narrative: Patient is intoxicated. There is no signs of trauma. Continue to observe until patient is clinically sober. Turned over to Dr. Reddy until disposition. Discharge Plan Departure Patient Disposition: Home Clinical Impression: Alcohol intoxication Instructions: DI for Alcohol Use Disorder Prescriptions: No Action lisinopril 20 MG tablet 20 mg PO QDAY Qty: 0 trazodone 150 MG tablet 150 mg PO QDAY Qty: 0 perphenazine 8 MG tablet 8 mg PO Qty: 0 hydroxyzine HCl 50 MG tablet 50 mg PO Q8HP PRNQty: 0 olanzapine [Zyprexa] 10 mg tablet 10 mg PO DAILY Qty: 30 0RF Referrals: Miscellaneous,Doctor, MD [Primary Care Provider] -
--- NOTE | 2022-01-25 15:25 | CM.SWNOTE ---
[employer] Note Patient is 46 y/o male who presents to ED via EMS due to concern for ETOH intoxication. Per EMS, citizen called 911 per patient's request as patient was at [facility] unable to walk. Per EMS, patient endorses he drank 1/2 gallon of whiskey today. Patient presented to this ED on 01/16/22 with similar presentation, patient has hx of at least 23 ED encounters in the last 12 months related to substance use and MH. Patient has hx of ETOH use, PTSD, Schizoaffective Disorder-Bipolar type. No PCP listed in EMR, patient has Medicaid and [employer] Medicare Advantage insurance. [employer] enters room upon patient's presentation to the ED with EMS, patient is slurring speech, and not available or appropriate for thorough assessment at this time. Patient proceeds to go to sleep. Patient informs this [employer] that he has an appt with state worker Carlos Cuellar tomorrow.(Ph. # [phone]) who is Law Enforcement Assisted Diversion specialist. Patient indicates that appt is in [place] regarding securing housing for patient in [place]. Patient provides [employer] consent in calling Carlos to inform him of patient's presentation at this ED. [employer] calls and leaves . Patient has hx of SI, SA and hx of BH inpatient/ dual dx voluntary stays. Per RN and ED provider Dr. Garcia, patient's care plan will consist of patient recovering in ED and discharging to community upon medical clearance. Plan: [employer] to attempt to assess patient further when patient wakes up. [employer] to f/u with POC. KENDALL Walters
== END 2022-01-25 19:30 | disposition home or self-care (01) ==
PROVIDERS: Emergency Provider Emergency Medicine
DX: F10.129 Alcohol abuse with intoxication, unspecified (principal)
CPT/HCPCS: 99281

== ENCOUNTER 2022-04-02 10:31 | Emergency (ER) | payer MEDICARE, OTHER, SELFPAY ==
[2022-04-02 10:11] VITALS: BP 132/92; PULSE 89; RESP 16; TEMP 36.3; O2SAT 100; BMI 30.7
--- NOTE | 2022-04-02 10:38 | ED_ITS ---
HPI - Alcohol General Chief Complaint: Medical Clearance Stated Complaint: Medical Clearance Time Seen by Provider: 04/02/22 10:32 History of Present Illness HPI narrative: Patient is a 46-year-old history of alcohol abuse, bipolar and hypertension presenting today by EMS for need for detox. He apparently does have a telehealth case manager who has been working to secure a bed for him it apparently was secured yesterday at [facility] he was seen at [facility] however he was released without going to [place] [facility]. Patient is here now he reports drinking 20 minutes ago. However he has no interest in going to detox now he needs to go get his bike. He has no thoughts of self-harm or harming others. He reports using marijuana but no other drug use. He has no other pain or issues. We have c alled [facility] does not have a secured bed for him but they would potentially have availability. Patient has been seen here in the ED multiple times for alcohol abuse but not since 01/25/2022. Patient called [facility] he apparently has resources in [facility]. Unfortunately this particular person is in [facility] and is unable to be of help today Related Data Home Medications Medication Instructions Recorded Confirmed hydroxyzine HCl 50 mg tablet 50 mg PO Q8HP PRN ##0 02/28/16 lisinopril 20 mg tablet 20 mg PO QDAY ##0 02/28/16 perphenazine 8 mg tablet 8 mg PO ##0 02/28/16 trazodone 150 mg tablet 150 mg PO QDAY ##0 02/28/16 Previous Rx's Medication Instructions Recorded olanzapine 10 mg tablet (Zyprexa) 10 mg PO DAILY #30 tabs 05/27/21 Allergies Allergy/AdvReac Type Severity Reaction Status Date / Time amoxicillin Allergy Verified 04/02/22 10:57 Review of Systems Review of Systems ROS Unobtainable: All systems reviewed & are unremarkable except as noted in HPI and below Patient History Medical History Alcohol abuse PTSD (post-traumatic stress disorder) Schizoaffective disorder, bipolar type Social History Smoking Status: Current every day smoker Smoking Status: Current every day smoker alcohol intake frequency: 3 or more drinks per day Alcohol type: beer and hard liquor Substance Use Type: marijuana Exam Initial Vital Signs Initial Vital Signs: Vital Signs Temperature 97.4 F L 04/02/22 10:11 Pulse Rate 89 04/02/22 10:11 Respiratory Rate 16 04/02/22 10:11 Blood Pressure 132/92 H 04/02/22 10:11 Pulse Oximetry 100 04/02/22 10:11 Oxygen Delivery Method 04/02/22 10:11 GENERAL: Alert mostly cooperative 46-year-old male and in no acute distress. HEENT: Head atraumatic,EOMI, pupils reactive, face symmetric, moist mucous membranes CARDIOVASCULAR: Regular rate and rhythm without murmurs, rubs or gallops. RESPIRATORY: Breath sounds equal bilaterally, no wheezes rales or rhonchi. ABDOMEN: Soft, nontender. Normoactive bowel sounds all 4 quadrants. No guarding or rebound. EXTREMITIES: Normal range of motion, no clubbing or edema. Neurovascularly intact NEUROLOGICAL: Alert and oriented x4. Steady gait SKIN: Warm, dry, no laceration, no petechiae, no rashes or lesions. Course Orders Ordered: ED Orders 04/02/22 10:43 Urinalysis and Microscopic Stat Urine Drug Screen, Rapid Stat 04/02/22 11:01 Consult to RESIDENCE SUPERVISOR - Director Airport Operations Stat Vital Signs Vital signs: Vital Signs - 8 hr 04/02/22 10:11 Temperature 97.4 F L Pulse Rate 89 Respiratory Rate 16 Blood Pressure 132/92 H Pulse Oximetry 100 Oxygen Delivery Method Room Air MDM - Alcohol Lab Data 04/02/22 11:10 04/02/22 11:10 Labs: Lab Results 04/02/22 04/02/22 04/02/22 Range/Units 10:43 10:43 11:10 WBC Cancelled RBC Cancelled Hgb Cancelled Hct Cancelled MCV Cancelled MCH Cancelled MCHC Cancelled RDW Cancelled Plt Count Cancelled Neut % (Auto) Cancelled Lymph % (Auto) Cancelled [place] % (Auto) Cancelled Eos % (Auto) Cancelled Baso % (Auto) Cancelled Neut # (Auto) Cancelled Lymph # (Auto) Cancelled [place] # (Auto) Cancelled Eos # (Auto) Cancelled Baso # (Auto) Cancelled Sodium Potassium Chloride Carbon Dioxide BUN Creatinine Estimated GFR BUN/Creatinine Ratio Glucose Calcium Total Bilirubin AST ALT Alkaline Phosphatase Total Protein Albumin Globulin Albumin/Globulin Ratio TSH Urine Color Yellow Urine Appearance Clear Urine pH 5.5 (4.5-8.0) Ur Specific [place] <=1.005 (1.000-1.035) Urine Protein Negative (Negative) Urine Glucose (UA) Negative (Negative) g/dL Urine Ketones Negative (NEGATIVE) Urine Occult Blood Negative (Negative) Urine Nitrate Negative (Negative) Urine Bilirubin Negative (NEGATIVE) Urine Urobilinogen 0.2 (0.2) E.U./dL Ur Leukocyte Esterase Negative (NEGATIVE) Urine RBC None seen (0-5/HPF) Urine WBC None seen (0-5/HPF) Ur Squamous Epith Cells None seen (0-5/HPF) Urine Bacteria None seen (None) Ur Culture Indicated? Cult not indicated Salicylates U Opiates 300ng/mL cut Negative (Negative) Ur Oxycodone Screen Negative (Negative) Urine Methadone Screen Negative (Negative) Acetaminophen Ur Barbiturates Screen Negative (Negative) U Tricyclic Antidepress Negative (Negative) Ur Phencyclidine Scrn Negative (Negative) Ur Amphetamines Screen Negative (Negative) U Methamphetamines Scrn Negative (Negative) Ur MDMA Scrn (Ecstasy) Negative (Negative) U Benzodiazepines Scrn Negative (Negative) Urine Cocaine Screen Negative (Negative) U Marijuana (THC) Screen Negative (Negative) Ethyl Alcohol 04/02/22 04/02/22 Range/Units 11:10 11:10 WBC RBC Hgb Hct MCV MCH MCHC RDW Plt Count Neut % (Auto) Lymph % (Auto) [place] % (Auto) Eos % (Auto) Baso % (Auto) Neut # (Auto) Lymph # (Auto) [place] # (Auto) Eos # (Auto) Baso # (Auto) Sodium Cancelled Potassium Cancelled Chloride Cancelled Carbon Dioxide Cancelled BUN Cancelled Creatinine Cancelled Estimated GFR Cancelled BUN/Creatinine Ratio Cancelled Glucose Cancelled Calcium Cancelled Total Bilirubin Cancelled AST Cancelled ALT Cancelled Alkaline Phosphatase Cancelled Total Protein Cancelled Albumin Cancelled Globulin Cancelled Albumin/Globulin Ratio Cancelled TSH Cancelled Urine Color Urine Appearance Urine pH (4.5-8.0) Ur Specific [place] (1.000-1.035) Urine Protein (Negative) Urine Glucose (UA) (Negative) g/dL Urine Ketones (NEGATIVE) Urine Occult Blood (Negative) Urine Nitrate (Negative) Urine Bilirubin (NEGATIVE) Urine Urobilinogen (0.2) E.U./dL Ur Leukocyte Esterase (NEGATIVE) Urine RBC (0-5/HPF) Urine WBC (0-5/HPF) Ur Squamous Epith Cells (0-5/HPF) Urine Bacteria (None) Ur Culture Indicated? Salicylates Cancelled U Opiates 300ng/mL cut (Negative) Ur Oxycodone Screen (Negative) Urine Methadone Screen (Negative) Acetaminophen Cancelled Ur Barbiturates Screen (Negative) U Tricyclic Antidepress (Negative) Ur Phencyclidine Scrn (Negative) Ur Amphetamines Screen (Negative) U Methamphetamines Scrn (Negative) Ur MDMA Scrn (Ecstasy) (Negative) U Benzodiazepines Scrn (Negative) Urine Cocaine Screen (Negative) U Marijuana (THC) Screen (Negative) Ethyl Alcohol Cancelled MDM Narrative Medical decision making narrative: Patient is a chronic alcoholic frequent Flyer here to this emergency department. He is some slurring of words but is walking quite a bit in the ED with a steady gait. He is offered multiple times to let us help him get him to detox and down to [facility] for we have confirmed that they have bed availability. Social work does not get her for another hour. Patient gave us a urine sample. Repeatedly remarks that he does not like women but is overall cooperative. He is quite adamant that he needs to leave and go get his bike and then he will return. I have explained that if he leaves the process will need to be started all over. At this time it is clear that he is leaving he is given all of his belongings. He does not meet any involuntary criteria. He has a steady gait. Patient is discharged and encouraged to come back at any time if he would like help. The patient is clinically sober, free from distracting injury, appears to have intact insight, judgment and reason. Does not meet criteria for involuntary hospitalization. Patient has the capacity to make decisions. The patient is also not under any duress to leave the hospital. In this scenario, it would be battery to subject the patient to treatment against his/her will. I have voiced my concerns for the patient's health given that a full evaluation and treatment had not occurred. I have discussed the need for continued evaluation to determine if there symptoms are caused by a condition that present risk of or morbidity. Risk including but not limited to , permanent disability, prolonged hospitalization, prolonged illness, were discussed. I tried offering alternative options in hopes that the patient might be amenable to partial evaluation and treatment which would be medically beneficial to the patient, win [place] the patient declined my options and insisted on leaving. Because I have been unable to convince the patient to stay I answered all of their questions about the condition and ask them to return to the ED as soon as possible to complete their evaluation, especially if their symptoms worsen or do not improve. I emphasized that leaving against medical advice did not preclude returning here for further evaluation. I asked the patient to return if they change their mind about the further evaluation and treatment. I strongly encouraged the patient to return to this emergency department or any emergency department at any time, particularly with worsening symptoms. Discharge Plan Departure Patient Disposition: Home Clinical Impression: Alcohol abuse Activity Restrictions/Additional Instructions: You were offered to go to detox and treatment facility however you declined at this time. If you should change her mind your more than welcome to return to the emergency department. It is strongly recommended that you stop drinking alcohol under supervision so you do not have complication You may return to the emergency department at any time Prescriptions: No Action lisinopril 20 MG tablet 20 mg PO QDAY Qty: 0 trazodone 150 MG tablet 150 mg PO QDAY Qty: 0 perphenazine 8 MG tablet 8 mg PO Qty: 0 hydroxyzine HCl 50 MG tablet 50 mg PO Q8HP PRNQty: 0 olanzapine [Zyprexa] 10 mg tablet 10 mg PO DAILY Qty: 30 0RF Referrals: Miscellaneous,Doctor, MD [Primary Care Provider] - Stand Alone Forms: Patient Portal/API
[2022-04-02 10:55] LABS: Appearance Urine UA CLEAR; Bilirubin Urine UA NEGATIVE (NEGATIVE); Color Urine UA YELLOW; Glucose Urine UA NEGATIVE (Negative); Ketones Urine UA NEGATIVE (NEGATIVE); Leukocyte Esterase Urine UA NEGATIVE (NEGATIVE); Nitrite Urine UA NEGATIVE (Negative); Occult Blood Urine UA NEGATIVE (Negative); Protein Urine UA NEGATIVE (Negative); Specific Gravity Urine UA <=1.005 (1.000-1.035); Urobilinogen Urine UA 0.2 E.U./dL (0.2); pH Urine UA 5.5 (4.5-8.0)
[2022-04-02 11:00] LABS: UR Morphine/Opiate cutoff 300 Negative (Negative); Ur Creatinine Normal (Normal); Ur Specific Gravity Normal (Normal); Urine Amphetamines Negative (Negative); Urine Barbiturates Negative (Negative); Urine Benzodiazepines Negative (Negative); Urine Cocaine Negative (Negative); Urine MDMA Negative (Negative); Urine Methadone Negative (Negative); Urine Methamphetamines Negative (Negative); Urine Oxycodone Negative (Negative); Urine Phencyclidine Negative (Negative); Urine Tetrahydrocannabinol Negative (Negative); Urine Tricyclic Antidepressant Negative (Negative); Urine pH Normal (Normal)
[2022-04-02 11:32] LABS: Bacteria Urine None Seen; RBC Urine None Seen (0-5/HPF); Squamous Epithelial Cell Urine None Seen (0-5/HPF); WBC Urine None Seen (0-5/HPF)
[2022-04-02 11:33] LABS: Culture Indicated Urine Cult Not Indicated
== END 2022-04-02 11:11 | disposition home or self-care (01) ==
PROVIDERS: Emergency Provider Emergency Medicine
DX: F10.10 Alcohol abuse, uncomplicated (principal)
CPT/HCPCS: 80305; 81001; 99281

== ENCOUNTER 2022-04-02 12:58 | Emergency (ER) | payer MEDICARE, MEDICAID, SELFPAY ==
[2022-04-02 13:26] VITALS: BP 140/98; PULSE 78; RESP 17; TEMP 36.6; O2SAT 99
[2022-04-02 13:38] LABS: Add Manual Diff / Slide Review NO; Basophils Absolute Auto 100 /uL (0-100); Basophils Percent Auto 0.7 % (0-2); Eosinophils Absolute Auto 0 /uL (0-450); Eosinophils Percent Auto 0.4 % (2-4); Hematocrit 44.8 % (41-53); Hemoglobin 14.4 g/dL (13.5-17.5); Lymphocytes Absolute Auto 2800 /uL (1100-4500); Lymphocytes Percent Auto 30.5 % (25-40); Mean Corpuscular HGB Conc 32.2 % (30-36); Mean Corpuscular Hemoglobin 23.4 PG (26-34); Mean Corpuscular Volume 72.6 fL (80-100); Monocytes Absolute Auto 500 /uL (0-900); Monocytes Percent Auto 5.1 % (3-14); Neutrophils Absolute Auto 5800 /uL (1500-7000); Neutrophils Percent Auto 63.3 % (50-75); Platelet Count 434 X10^3/uL (150-400); Red Blood Cell Count 6.17 X10^6/uL (4.5-5.9); Red Cell Distribution Width 15.8 % (11.6-14.8); White Blood Cell Count 9.2 X10^3/uL (4.5-11.0)
[2022-04-02 13:50] LABS: UR Morphine/Opiate cutoff 300 Negative (Negative); Ur Creatinine Normal (Normal); Ur Specific Gravity Normal (Normal); Urine Amphetamines Negative (Negative); Urine Barbiturates Negative (Negative); Urine Benzodiazepines Negative (Negative); Urine Cocaine Negative (Negative); Urine MDMA Negative (Negative); Urine Methadone Negative (Negative); Urine Methamphetamines Negative (Negative); Urine Oxycodone Negative (Negative); Urine Phencyclidine Negative (Negative); Urine Tetrahydrocannabinol Negative (Negative); Urine Tricyclic Antidepressant Negative (Negative); Urine pH Normal (Normal)
--- NOTE | 2022-04-02 13:53 | ED_ITS ---
HPI - Alcohol <pOal Desai DO - Last Filed: 04/03/22 07:22> General Chief Complaint: Toxicology Problem Stated Complaint: Intoxicated Time Seen by Provider: 04/02/22 13:14 Source: patient Mode of arrival: Ambulatory History of Present Illness HPI narrative: Patient 46-year-old male history of alcohol abuse bipolar hypertension presenting for the 2nd time today wanting alcohol detox. Was here earlier but needed to leave he is back now cooperating and ready for detox. Has no new issues he states that he left and did drink a beer. He has no thoughts of hurting himself or anyone else. Related Data Home Medications Medication Instructions Recorded Confirmed hydroxyzine HCl 50 mg tablet 50 mg PO Q8HP PRN ##0 02/28/16 lisinopril 20 mg tablet 20 mg PO QDAY ##0 02/28/16 perphenazine 8 mg tablet 8 mg PO ##0 02/28/16 trazodone 150 mg tablet 150 mg PO QDAY ##0 02/28/16 Previous Rx's Medication Instructions Recorded olanzapine 10 mg tablet (Zyprexa) 10 mg PO DAILY #30 tabs 05/27/21 Allergies Allergy/AdvReac Type Severity Reaction Status Date / Time amoxicillin Allergy Verified 04/02/22 10:57 Review of Systems <DO Cordelia Blanc Last Filed: 04/03/22 07:22> Review of Systems ROS Unobtainable: All systems reviewed & are unremarkable except as noted in HPI and below Patient History <DO Cordelia Blanc Last Filed: 04/03/22 07:22> Medical History Alcohol abuse PTSD (post-traumatic stress disorder) Schizoaffective disorder, bipolar type Social History Smoking Status: Current every day smoker Smoking Status: Current every day smoker alcohol intake frequency: 3 or more drinks per day Alcohol type: beer and hard liquor Substance Use Type: marijuana Exam <DO Cordelia Blanc Last Filed: 04/03/22 07:22> Initial Vital Signs Initial Vital Signs: Vital Signs Temperature 97.8 F 04/02/22 13:26 Pulse Rate 78 04/02/22 13:26 Respiratory Rate 17 04/02/22 13:26 Blood Pressure 140/98 H 04/02/22 13:26 Pulse Oximetry 99 04/02/22 13:26 Oxygen Delivery Method 04/02/22 13:26 GENERAL: Alert cooperative 38-year-old male CARDIOVASCULAR: peripheral pulses in tact, cap refill <2 sec RESPIRATORY: No respiratory distress, speaks in full sentences without difficulty [ABDOMEN: Soft, nontender, no guarding or rebound] EXTREMITIES: Normal range of motion, no clubbing or edema. Neurovascularly intact NEUROLOGICAL: Cranial nerves II through XII grossly intact. Normal gait and speech. SKIN: Warm, dry, no petechiae, no rashes or lesions. <Brea Dominique DO - Last Filed: 04/03/22 03:06> Initial Vital Signs Initial Vital Signs: Vital Signs Temperature 97.8 F 04/02/22 13:26 Pulse Rate 78 04/02/22 13:26 Respiratory Rate 17 04/02/22 13:26 Blood Pressure 140/98 H 04/02/22 13:26 Pulse Oximetry 99 04/02/22 13:26 Oxygen Delivery Method 04/02/22 13:26 Course <Opal Desai, DO - Last Filed: 04/03/22 07:22> Orders Ordered: Discontinued Medications Olanzapine (Olanzapine Odt 10 Mg Tab) 10 mg PO NOW ONE Stop: 04/02/22 17:14 Last Admin: 04/02/22 18:04 Dose: Not Given Documented By: RB Vital Signs Vital signs: Vital Signs - 8 hr 04/02/22 20:32 Pulse Rate 77 Respiratory Rate 19 Blood Pressure 147/64 H Pulse Oximetry 99 Oxygen Delivery Method Room Air <Brea Dominique DO - Last Filed: 04/03/22 03:06> Orders Ordered: Discontinued Medications Olanzapine (Olanzapine Odt 10 Mg Tab) 10 mg PO NOW ONE Stop: 04/02/22 17:14 Last Admin: 04/02/22 18:04 Dose: Not Given Documented By: RB Vital Signs Vital signs: Vital Signs - 8 hr 04/02/22 20:32 Pulse Rate 77 Respiratory Rate 19 Blood Pressure 147/64 H Pulse Oximetry 99 Oxygen Delivery Method Room Air MDM - Alcohol <Opal Desai DO - Last Filed: 04/03/22 07:22> Lab Data 04/02/22 13:30 04/02/22 13:30 Labs: Lab Results 04/02/22 04/02/22 04/02/22 Range/Units 13:25 13:30 13:30 WBC 9.2 (4.5-11.0) X10^3/uL RBC 6.17 H (4.5-5.9) X10^6/uL Hgb 14.4 (13.5-17.5) g/dL Hct 44.8 (41-53) % MCV 72.6 L (80-100) fL MCH 23.4 L (26-34) PG MCHC 32.2 (30-36) % RDW 15.8 H (11.6-14.8) % Plt Count 434 H (150-400) X10^3/uL Neut % (Auto) 63.3 (50-75) % Lymph % (Auto) 30.5 (25-40) % [place] % (Auto) 5.1 (3-14) % Eos % (Auto) 0.4 L (2-4) % Baso % (Auto) 0.7 (0-2) % Neut # (Auto) 5800 (8546-7986) /uL Lymph # (Auto) 2800 (6543-2928) /uL [place] # (Auto) 500 (0-900) /uL Eos # (Auto) 0 (0-450) /uL Baso # (Auto) 100 (0-100) /uL Sodium 145 (137-145) mmol/L Potassium 5.0 (3.4-5.1) mmol/L Chloride 104 (98-107) mmol/L Carbon Dioxide 30 (22-32) mmol/L BUN 11 (9-20) mg/dL Creatinine 1.00 (0.66-1.25) mg/dL Estimated GFR > 60 (>60) mL/min BUN/Creatinine Ratio 11.0 (6-22) Glucose 122 H (70-100) mg/dL Calcium 9.5 (8.4-10.2) mg/dL Total Bilirubin 0.7 (0.2-1.3) mg/dL AST 42 (17-59) IU/L ALT 40 (<50) IU/L Alkaline Phosphatase 72 (38-126) U/L Total Protein 9.4 H (6.3-8.2) g/dL Albumin 5.0 (3.5-5.0) g/dL Globulin 4.4 H (1.7-4.1) g/dL Albumin/Globulin Ratio 1.1 (1.0-2.8) TSH (0.47-4.68) uIU/mL Salicylates < 1.0 (<20) mg/dL U Opiates 300ng/mL cut Negative (Negative) Ur Oxycodone Screen Negative (Negative) Urine Methadone Screen Negative (Negative) Acetaminophen < 10 (10-30) ug/mL Ur Barbiturates Screen Negative (Negative) U Tricyclic Antidepress Negative (Negative) Ur Phencyclidine Scrn Negative (Negative) Ur Amphetamines Screen Negative (Negative) U Methamphetamines Scrn Negative (Negative) Ur MDMA Scrn (Ecstasy) Negative (Negative) U Benzodiazepines Scrn Negative (Negative) Urine Cocaine Screen Negative (Negative) U Marijuana (THC) Screen Negative (Negative) Ethyl Alcohol 241 H ( - 10) mg/dL SARS-CoV-2 (PCR) (Negative) 04/02/22 04/02/22 Range/Units 13:30 14:21 WBC (4.5-11.0) X10^3/uL RBC (4.5-5.9) X10^6/uL Hgb (13.5-17.5) g/dL Hct (41-53) % MCV (80-100) fL MCH (26-34) PG MCHC (30-36) % RDW (11.6-14.8) % Plt Count (150-400) X10^3/uL Neut % (Auto) (50-75) % Lymph % (Auto) (25-40) % [place] % (Auto) (3-14) % Eos % (Auto) (2-4) % Baso % (Auto) (0-2) % Neut # (Auto) (4363-6982) /uL Lymph # (Auto) (9654-3497) /uL [place] # (Auto) (0-900) /uL Eos # (Auto) (0-450) /uL Baso # (Auto) (0-100) /uL Sodium (137-145) mmol/L Potassium (3.4-5.1) mmol/L Chloride (98-107) mmol/L Carbon Dioxide (22-32) mmol/L BUN (9-20) mg/dL Creatinine (0.66-1.25) mg/dL Estimated GFR (>60) mL/min BUN/Creatinine Ratio (6-22) Glucose (70-100) mg/dL Calcium (8.4-10.2) mg/dL Total Bilirubin (0.2-1.3) mg/dL AST (17-59) IU/L ALT (<50) IU/L Alkaline Phosphatase (38-126) U/L Total Protein (6.3-8.2) g/dL Albumin (3.5-5.0) g/dL Globulin (1.7-4.1) g/dL Albumin/Globulin Ratio (1.0-2.8) TSH 0.60 (0.47-4.68) uIU/mL Salicylates (<20) mg/dL U Opiates 300ng/mL cut (Negative) Ur Oxycodone Screen (Negative) Urine Methadone Screen (Negative) Acetaminophen (10-30) ug/mL Ur Barbiturates Screen (Negative) U Tricyclic Antidepress (Negative) Ur Phencyclidine Scrn (Negative) Ur Amphetamines Screen (Negative) U Methamphetamines Scrn (Negative) Ur MDMA Scrn (Ecstasy) (Negative) U Benzodiazepines Scrn (Negative) Urine Cocaine Screen (Negative) U Marijuana (THC) Screen (Negative) Ethyl Alcohol ( - 10) mg/dL SARS-CoV-2 (PCR) Negative (Negative) <Brea Dominique, DO - Last Filed: 04/03/22 03:06> Lab Data Labs: Lab Results 04/02/22 04/02/22 04/02/22 Range/Units 13:25 13:30 13:30 WBC 9.2 (4.5-11.0) X10^3/uL RBC 6.17 H (4.5-5.9) X10^6/uL Hgb 14.4 (13.5-17.5) g/dL Hct 44.8 (41-53) % MCV 72.6 L (80-100) fL MCH 23.4 L (26-34) PG MCHC 32.2 (30-36) % RDW 15.8 H (11.6-14.8) % Plt Count 434 H (150-400) X10^3/uL Neut % (Auto) 63.3 (50-75) % Lymph % (Auto) 30.5 (25-40) % [place] % (Auto) 5.1 (3-14) % Eos % (Auto) 0.4 L (2-4) % Baso % (Auto) 0.7 (0-2) % Neut # (Auto) 5800 (0782-9058) /uL Lymph # (Auto) 2800 (3297-8124) /uL [place] # (Auto) 500 (0-900) /uL Eos # (Auto) 0 (0-450) /uL Baso # (Auto) 100 (0-100) /uL Sodium 145 (137-145) mmol/L Potassium 5.0 (3.4-5.1) mmol/L Chloride 104 (98-107) mmol/L Carbon Dioxide 30 (22-32) mmol/L BUN 11 (9-20) mg/dL Creatinine 1.00 (0.66-1.25) mg/dL Estimated GFR > 60 (>60) mL/min BUN/Creatinine Ratio 11.0 (6-22) Glucose 122 H (70-100) mg/dL Calcium 9.5 (8.4-10.2) mg/dL Total Bilirubin 0.7 (0.2-1.3) mg/dL AST 42 (17-59) IU/L ALT 40 (<50) IU/L Alkaline Phosphatase 72 (38-126) U/L Total Protein 9.4 H (6.3-8.2) g/dL Albumin 5.0 (3.5-5.0) g/dL Globulin 4.4 H (1.7-4.1) g/dL Albumin/Globulin Ratio 1.1 (1.0-2.8) TSH (0.47-4.68) uIU/mL Salicylates < 1.0 (<20) mg/dL U Opiates 300ng/mL cut Negative (Negative) Ur Oxycodone Screen Negative (Negative) Urine Methadone Screen Negative (Negative) Acetaminophen < 10 (10-30) ug/mL Ur Barbiturates Screen Negative (Negative) U Tricyclic Antidepress Negative (Negative) Ur Phencyclidine Scrn Negative (Negative) Ur Amphetamines Screen Negative (Negative) U Methamphetamines Scrn Negative (Negative) Ur MDMA Scrn (Ecstasy) Negative (Negative) U Benzodiazepines Scrn Negative (Negative) Urine Cocaine Screen Negative (Negative) U Marijuana (THC) Screen Negative (Negative) Ethyl Alcohol 241 H ( - 10) mg/dL SARS-CoV-2 (PCR) (Negative) 04/02/22 04/02/22 Range/Units 13:30 14:21 WBC (4.5-11.0) X10^3/uL RBC (4.5-5.9) X10^6/uL Hgb (13.5-17.5) g/dL Hct (41-53) % MCV (80-100) fL MCH (26-34) PG MCHC (30-36) % RDW (11.6-14.8) % Plt Count (150-400) X10^3/uL Neut % (Auto) (50-75) % Lymph % (Auto) (25-40) % [place] % (Auto) (3-14) % Eos % (Auto) (2-4) % Baso % (Auto) (0-2) % Neut # (Auto) (2503-5888) /uL Lymph # (Auto) (6973-4334) /uL [place] # (Auto) (0-900) /uL Eos # (Auto) (0-450) /uL Baso # (Auto) (0-100) /uL Sodium (137-145) mmol/L Potassium (3.4-5.1) mmol/L Chloride (98-107) mmol/L Carbon Dioxide (22-32) mmol/L BUN (9-20) mg/dL Creatinine (0.66-1.25) mg/dL Estimated GFR (>60) mL/min BUN/Creatinine Ratio (6-22) Glucose (70-100) mg/dL Calcium (8.4-10.2) mg/dL Total Bilirubin (0.2-1.3) mg/dL AST (17-59) IU/L ALT (<50) IU/L Alkaline Phosphatase (38-126) U/L Total Protein (6.3-8.2) g/dL Albumin (3.5-5.0) g/dL Globulin (1.7-4.1) g/dL Albumin/Globulin Ratio (1.0-2.8) TSH 0.60 (0.47-4.68) uIU/mL Salicylates (<20) mg/dL U Opiates 300ng/mL cut (Negative) Ur Oxycodone Screen (Negative) Urine Methadone Screen (Negative) Acetaminophen (10-30) ug/mL Ur Barbiturates Screen (Negative) U Tricyclic Antidepress (Negative) Ur Phencyclidine Scrn (Negative) Ur Amphetamines Screen (Negative) U Methamphetamines Scrn (Negative) Ur MDMA Scrn (Ecstasy) (Negative) U Benzodiazepines Scrn (Negative) Urine Cocaine Screen (Negative) U Marijuana (THC) Screen (Negative) Ethyl Alcohol ( - 10) mg/dL SARS-CoV-2 (PCR) Negative (Negative) MDM Narrative Medical decision making narrative: Patient signed out to myself while awaiting transportation [place] for dual diagnosis treatment. Patient had been up and down ambulated in the department. He did go outside of the ED department and smoked a cigarette with staff and was always visualized during this period. Discharge Plan Departure Patient Disposition: Xfer Inpatient Rehab Clinical Impression: Alcohol abuse, Schizoaffective disorder Prescriptions: No Action lisinopril 20 MG tablet 20 mg PO QDAY Qty: 0 trazodone 150 MG tablet 150 mg PO QDAY Qty: 0 perphenazine 8 MG tablet 8 mg PO Qty: 0 hydroxyzine HCl 50 MG tablet 50 mg PO Q8HP PRNQty: 0 olanzapine [Zyprexa] 10 mg tablet 10 mg PO DAILY Qty: 30 0RF Referrals: Miscellaneous,Doctor, MD [Primary Care Provider] -
[2022-04-02 14:03] LABS: Acetaminophen < 10 ug/mL (10-30); Alanine Aminotransferase 40 IU/L (<50); Albumin Globulin Ratio 1.1 (1.0-2.8); Alkaline Phosphatase 72 U/L (38-126); Aspartate Aminotransferase 42 IU/L (17-59); Bilirubin Total 0.7 mg/dL (0.2-1.3); Blood Urea Nitrogen 11 mg/dL (9-20); Calcium 9.5 mg/dL (8.4-10.2); Carbon Dioxide 30 mmol/L (22-32); Chloride 104 mmol/L (98-107); Estimated Glomerular Filt Rate > 60 mL/min (>60); Ethanol (ETOH) 241 mg/dL; Globulin 4.4 g/dL (1.7-4.1); Glucose 122 mg/dL (70-100); HEMOLYSIS < 15 (0-50); Salicylate < 1.0 mg/dL (<20); Sodium 145 mmol/L (137-145); Total Protein 9.4 g/dL (6.3-8.2)
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
[2022-04-02 14:46] LABS: COVID19 -Nasal RAPID Negative (Negative)
[2022-04-02 17:00] VITALS: BP 137/65; PULSE 81; RESP 16; O2SAT 98
--- NOTE | 2022-04-02 19:05 | CM.SWNOTE ---
TIRE BALANCER Note TIRE BALANCER calls [facility], it is reported that they have detox/dual diagnosis beds. TIRE BALANCER faxes clinicals for review. TIRE BALANCER calls [facility], it is reported that they have detox/dual dx beds, TIRE BALANCER faxes clinicals for review. TIRE BALANCER calls patient's PO in [facility] after patient signs consent form. Rome speaks with patient and encourages patient to follow through with with seeking treatment and going to treatment. Rome tells patient that he requests an NICOL at any hospital he goes to. TIRE BALANCER receives call from [facility]. It is reported that patient is accepted by [facility] at 2100. [facility] up BLS transport. TIRE BALANCER attempts 3 times to call patient's PO but there is no VM box set up, TIRE BALANCER to call PO tomorrow. TIRE BALANCER calls [facility] TIRE BALANCER and leaves VM regarding patient's outcome, since she assisted with patient's initial arrival to ED. At around 1850, patient walks outside with backpack and leaves other belongings in room. Patient endorses he wants to smoke a cigarette, patient walks with steady gate seeking the exit and will not respond to staff. This TIRE BALANCER and RN Karla watch patient as he smokes outside, patient returns to ED voluntarily continuing to seek Voluntary placement at [facility]. TIRE BALANCER informs ED provider. Plan: Patient to transfer to [facility] for dual dx bed this evening via BLS. SONY WaltersSW
--- NOTE | 2022-04-02 19:19 | PC.NURSE ---
Patient ambulated out of department with a few of his personal items. I just need a smoke, I'll be back This RN and SW followed patient to exit. Patient went across the street and smoked. Patient visualized the whole time. Willingly and calmly returned to room.
[2022-04-02 20:32] VITALS: BP 147/64; PULSE 77; RESP 19; O2SAT 99
== END 2022-04-02 20:35 ==
PROVIDERS: Emergency Provider Emergency Medicine
DX: F10.129 Alcohol abuse with intoxication, unspecified (principal); Y90.8 Blood alcohol level of 240 mg/100 ml or more; F25.9 Schizoaffective disorder, unspecified; Z20.822 Contact with and (suspected) exposure to COVID-19
CPT/HCPCS: 36415; 80053; 80305; 80320; 80329; 81001; 84443; 85025; 87635; 99281; 99282; 99283; C9803; G0480